=== PATIENT | female | born 1970 | race African-American/Black ===

== ENCOUNTER 2019-11-14 04:02 | Emergency (ER) | payer OTHER, SELFPAY ==
[2019-11-14 04:08] VITALS: BP 125/79; PULSE 70; RESP 20; TEMP 36.2; O2SAT 99
--- NOTE | 2019-11-14 04:24 | ECG_ITS ---
Measurements Intervals [place] Rate: 60 P: 33 AL: 183 QRS: 46 QRSD: 84 T: -14 QT: 418 QTc: 421 Interpretive Statements SINUS RHYTHM LOW QRS VOLTAGE IN PRECORDIAL LEADS DELAYED PRECORDIAL R/S TRANSITION BORDERLINE ST-T WAVE ABNORMALITY- DIFFUSE LEADS BASELINE ARTIFACT- I, II, III, AVR, AVL, AVF, V5-V6 BORDERLINE ECG Electronically Signed On 11-14-2019 7:17:58 CDT by Daniel Bro D.O.
--- NOTE | 2019-11-14 04:25 | ED.GENADULT ---
HPI - General Adult General Chief complaint: Unspecified Stated complaint: bodyaches Time Seen by Provider: 11/14/19 04:09 History of Present Illness HPI narrative: Patient presents to emergency department from home for muscle aches. Patient states for the past 1 months she has had achiness in her bilateral arms mainly located in the forearm as well as the bottom of her left foot. She says nothing seems to make the symptoms better or worse. She denies any achiness of the legs. She denies any fevers or chills chest pain shortness of breath abdominal pain numbness or tingling or weakness of the extremities. Patient denies any trauma or injury. She states she tried taking a Tylenol yesterday with minimal relief. Denies any other symptoms at this time Review of Systems Review of Systems: Narrative: Gen.: Denies fevers or chills Eyes: Denies eye pain or visual change ENT: Denies congestion Respiratory: Denies shortness of breath or cough CV: Denies chest pain or palpitations GI: Denies abdominal pain nausea, emesis or diarrhea denies burning, urgency, frequency or hematuria Musculoskeletal: See HPI Neuro: Denies numbness, tingling, weakness or focal weakness Skin: Denies rash Except as documented, all other systems reviewed and negative [facility] Past Medical History Medical History (Updated 11/14/19 @ 05:19 by Chay Marquez DO) Patient denies significant medical history Family History Family History (Updated 10/31/16 @ 09:08 by DOCTOR UNKNOWN) Father Diabetes mellitus Social History Social History Smoking status: Never smoker Alcohol intake: current Exam Narrative: Exam Narrative: APPEARANCE: No acute distress, nontoxic, resting in bed EYES: EOMI HEENT: Normocephalic, atraumatic, OMM Neck: Supple, no midline tenderness palpation, full range of motion without pain RESPIRATORY: No respiratory distress Clear to auscultation bilaterally with no rhonchi wheezing or rales. CARDIOVASCULAR: Regular rate and rhythm without murmurs rubs or gallops. Bilateral radial pulse 2+ ABDOMINAL: Soft, nontender, nondistended, no rebound or guarding MUSCULOSKELETAl: Moves all extremities. No clubbing, cyanosis or edema. No tenderness of the bilateral shoulder elbows or wrist with full range of motion of all, mild tenderness in bilateral forearms with no swelling ecchymosis or erythema NEURO: Awake and alert x 3. Following commands, speech normal, no focal deficits muscle strength 5 out of 5 bilateral upper and lower extremities SKIN:: Warm, dry. No rashes lesions or abrasions PSYCHIATRIC: Normal affect/mood, Course Course Emergency Course: Patient states pain is improved with Toradol Discussed with patient results of workup and diagnosis. Discussed need for follow-up with primary care, proper use of medication, and reasons to return to the emergency department. Patient understands and agrees to current treatment plan Vital Signs Vital signs: Vital Signs Temperature 97.2 F L 11/14/19 04:08 Pulse Rate 70 11/14/19 04:08 Respiratory Rate 20 11/14/19 04:08 Blood Pressure 125/79 11/14/19 04:08 Pulse Oximetry 99 11/14/19 04:08 Temperature 97.2 F L 11/14/19 04:08 Pulse Rate 70 11/14/19 04:08 Respiratory Rate 20 11/14/19 04:08 Blood Pressure 125/79 11/14/19 04:08 Pulse Oximetry 99 11/14/19 04:[address] [facility] Narrative Medical decision making narrative: Patient with bilateral arm aching for the past 1 month. On exam mildly tender in forearm region there is no overlying erythema or ecchymosis no joint tenderness full range of motion neurovascularly intact EKGs within normal limits no signs of rhabdomyolysis or electrolyte abnormality question the possibility of autoimmune versus other at this time feel the patient safe for discharge follow-up with PCP and will set patient up with PCP Vital Signs Vital Signs: Vital Signs Temperatu
[2019-11-14] MEDS: KETOROLAC 30 MG/ML VIAL (*BKC) IV PUSH (04:35)
[2019-11-14 04:48] LABS: Basophils Absolute Auto 0.1 K/mm3 (0.0-0.1); Basophils Percent Auto 0.8 % (0.2-1.2); Eosinophils Absolute Auto 0.2 K/mm3 (0-0.3); Eosinophils Percent Auto 3.2 % (0-4.4); Hematocrit 38.9 % (37.0-47.0); Hemoglobin 12.7 g/dL (12.0-15.0); Immature Granulocyte Absolute 0.02 K/mm3 (0.00-0.031); Immature Granulocyte Percent A 0.3 % (0-0.5); Lymphocytes Absolute Auto 2.54 K/mm3 (0.9-3.2); Lymphocytes Percent Auto 42.1 % (18.3-44.2); Mean Corpuscular HGB Conc 32.6 g/dl (32-36); Mean Corpuscular Hemoglobin 32.3 pg (26-34); Mean Platelet Volume 10.7 fl (7.4-10.4); Monocytes Absolute Auto 0.5 K/mm3 (0.1-0.6); Monocytes Percent Auto 8.8 % (2.6-8.5); Neutrophils Absolute Auto 2.7 K/mm3 (1.3-6.7); Neutrophils Percent Auto 44.8 % (45.5-73.1); Platelet Count Result 274 k/mm3 (150-375); Red Blood Count 3.93 M/mm3 (4.2-5.4); Red Cell Distribution Width 12.9 % (11.5-14.5)
[2019-11-14 05:05] VITALS: TEMP 36.6
[2019-11-14 05:05] LABS: Alanine Aminotransferase 26 U/L (4-35); Albumin Level 3.8 g/dL (3.5-5.1); Alkaline Phosphatase 53 U/L (38-126); Aspartate Amino Transferase 27 U/L (14-36); Bilirubin,Total 0.3 mg/dL (0.2-1.3); Blood Urea Nitrogen 13 mg/dL (7-17); Calcium 8.7 mg/dL (8.4-10.2); Carbon Dioxide 29 mmol/L (22-30); Chloride 103 mmol/L (98-107); Creatine Kinase 84 U/L (30-135); Estimated Glomerular Filt Rate > 60; Glucose 96 mg/dL (65-105); Magnesium 1.9 mg/dL (1.6-2.3); Potassium 4.3 mmol/L (3.4-5.0); Sodium 136 mmol/L (137-145)
[2019-11-14 05:13] LABS: Troponin I < 0.012 ng/mL (0.000-0.034)
[2019-11-14 05:35] VITALS: BP 121/75; PULSE 67; RESP 16; TEMP 36.6; O2SAT 99
== END 2019-11-14 05:40 | disposition home or self-care (01) ==
PROVIDERS: Emergency Provider Emergency Medicine
DX: M79.632 Pain in left forearm (principal); M79.631 Pain in right forearm; R94.31 Abnormal electrocardiogram [ECG] [EKG]
CPT/HCPCS: 36415; 80053; 82550; 83735; 84484; 85025; 93005; 96374; 99284; J1885

== ENCOUNTER 2020-06-27 19:50 | Emergency (ER) | payer OTHER, SELFPAY ==
--- NOTE | ~2020-06-27 | CT_ITS ---
EXAMINATION: CTA BRAIN/CAROTID DATE: 06/27/2020 22:21 INDICATION: Headache after pop in head TECHNIQUE: Computed tomographic angiography (CTA) of the head and neck was performed with 100 mL Omni paque-350 intravenous contrast. Multiplanar reconstructions and maximum intensity projection 3D-recon structions of the carotid arteries and of the intracranial arteries were created by the technologist on a separate workstation. Precontrast CT of the head was also obtained. Automated exposure control and iterative reconstruction technique were employed.The dose-length product was 1825.14 mGy-cm. COMPARISON: None. FINDINGS: Carotid arteries: There is 0% stenosis of the right carotid bulb relative to normal distal artery lumen diameter (NASCE T criteria). There is 0% stenosis of the left carotid bulb relative to normal distal artery lumen adán meter. Cervical soft tissues are unremarkable. Mild cervical spondylosis. Visualized upper lungs are clear. Head: No acute intracranial hemorrhage, acute infarction or abnormal extra axial fluid collection. Ventricl es are normal and symmetric. No mass/mass effect. The orbits, paranasal sinuses and mastoid air cells are normal. No abnormally enhancing brain lesions. Intracranial arteries There is no hemodynamically significant stenosis in the vertebral, basilar and internal carotid arter ies. Vertebral arteries are codominant. There are no aneurysms identified. Both A1 and P1 segments a re patent. Cerebral arterial arborization appears symmetric. IMPRESSION: 1. 0% stenosis of the left and right carotid bulbs relative to normal distal artery lumen diameter (N ASCET criteria). 2. Normal brain. No acute intracranial process. 3. Normal cerebral angiogram. Reviewed, dictated and finalized at [facility]. NCIAL SERVICES AGENT IMPRESSION: 1. 0% stenosis of the left and right carotid bulbs relative to normal distal ar sully lumen diameter (NASCET criteria). 2. Normal brain. No acute intracranial process. 3. Normal cerebral angiogram.
[2020-06-27 20:18] VITALS: BP 115/73; PULSE 64; RESP 18; TEMP 36.8; O2SAT 100
--- NOTE | 2020-06-27 20:58 | ED.HA ---
HPI - Headache General Chief Complaint: Headache Stated Complaint: feels like she need a ct scan due to a pop Time Seen by Provider: 06/27/20 20:25 Source: patient Mode of arrival: ambulatory Limitations: no limitations History of Present Illness HPI Narrative: This patient is a 50 year old female who presents for evaluation a frontal headache. She reports 3 hours ago she felt a pop in her head. She states she has gradually developed a frontal headache. She states she feels like her sinuses have opened . She denies blurred vision, nausea, vomiting, focal weakness. She has not taken anything for pain . She rates her pain 6/10. MD elicited complaint: headache Related Data Allergies Allergy/AdvReac Type Severity Reaction Status Date / Time Sulfa (Sulfonamide Allergy Verified 03/06/20 12:45 Antibiotics) Review of Systems Review of Systems: All systems reviewed & are unremarkable except as noted in HPI and below Constitutional: Constitutional: Denies chills and Denies fever(s) ENT: Reports nasal congestion and Denies sore throat Cardiovascular: Cardiovascular: Denies chest pain Respiratory: Respiratory: Denies cough and Denies dyspnea Gastrointestinal: Gastrointestinal: Denies abdominal pain, Denies diarrhea, Denies nausea and Denies vomiting Neurologic: Denies dizziness, Reports headache(s), Denies focal weakness and Denies weakness PMFSH Past Medical History Medical History Patient denies significant medical history Family History Family History (System 03/06/20 @ 12:45 by Bronwyn Patel) Father Diabetes mellitus Social History Social History (System 03/06/20 @ 12:45 by Bronwyn Patel) Smoking status: Never smoker Alcohol intake: current Exam Const: General: no acute distress and alert Orientation/consciousness: patient oriented x3 HENMT: Head: normocephalic and atraumatic Face and sinus: face symmetric Mouth: Yes Normal oral and palatal mucosa present, Yes lip normal, Yes oropharynx normal and Yes moist mucous membranes Throat: posterior oropharynx normal, tonsils normal and uvula midline Eyes: EOM: EOMs intact bilaterally Neck: Neck: normal visual inspection Resp: Effort & Inspection: normal respiratory effort, no retractions and no use of accessory muscles Auscultation: clear to auscultation bilaterally Cardio: Rate: regular rate Rhythm: regular rhythm Heart sounds: no murmurs GI: GI Palp: Yes Soft to palpation, No Tenderness to palpation present (GI), No Guarding due to palpation present (GI) and No Rigid due to palpation Auscultation: normal bowel sounds Skin: General skin exam: normal color Rashes: no rashes Neuro: General: patient oriented x3, moves all extremities, no meningeal signs and CN's II-XI intact bilaterally Cranial nerves: Yes Nystagmus not present Extrem: General: normal to inspection Psych: Mental Status: mental status grossly normal Affect: normal affect Course Reevaluation(s) Reevaluation #1: I Discussed with patient CTa brain and neck are unremarkable. She reports her headache is better. Date: 06/27/20 Time: 23:00 Vital Signs Vital signs: Vital Signs Temperature 98.3 F 06/27/20 20:18 Pulse Rate 64 06/27/20 20:18 Respiratory Rate 18 06/27/20 20:18 Blood Pressure 115/73 06/27/20 20:18 Pulse Oximetry 100 06/27/20 20:18 Temperature 97.8 F 06/27/20 23:19 Pulse Rate 86 06/27/20 23:19 Respiratory Rate 16 06/27/20 23:19 Blood Pressure 141/86 H 06/27/20 23:19 Pulse Oximetry 99 06/27/20 23:19 MDM - Headache Lab Data Attestation: I reviewed the patient's lab results. Result diagrams: 06/27/20 20:52 06/27/20 20:52 Labs: Lab Results 06/27/20 06/27/20 06/27/20 Range/Units 20:52 20:52 20:52 WBC 7.8 (4.5-10.0) K/mm3 RBC 4.09 L (4.2-5.4) M/mm3 Hgb 13.4 (12.0-15.0) g/dL Hct 4
[2020-06-27 20:59] LABS: Basophils Percent Auto 0.5 % (0.2-1.2); Eosinophils Absolute Auto 0.2 K/mm3 (0-0.3); Eosinophils Percent Auto 2.4 % (0-4.4); Hemoglobin 13.4 g/dL (12.0-15.0); Immature Granulocyte Absolute 0.02 K/mm3 (0.00-0.031); Immature Granulocyte Percent A 0.3 % (0-0.5); Lymphocytes Absolute Auto 2.87 K/mm3 (0.9-3.2); Lymphocytes Percent Auto 36.8 % (18.3-44.2); Mean Corpuscular HGB Conc 33.5 g/dl (32-36); Mean Corpuscular Hemoglobin 32.8 pg (26-34); Mean Corpuscular Volume 97.8 fl (80-100); Mean Platelet Volume 10.4 fl (7.4-10.4); Monocytes Absolute Auto 0.6 K/mm3 (0.1-0.6); Monocytes Percent Auto 7.1 % (2.6-8.5); Neutrophils Absolute Auto 4.1 K/mm3 (1.3-6.7); Neutrophils Percent Auto 52.9 % (45.5-73.1); Platelet Count Result 255 k/mm3 (150-375); Red Blood Count 4.09 M/mm3 (4.2-5.4); Red Cell Distribution Width 13.5 % (11.5-14.5); White Blood Count 7.8 K/mm3 (4.5-10.0)
[2020-06-27 21:08] LABS: INR 0.9; Prothrombin Time 12.9 Seconds (11.1-14.7)
[2020-06-27 21:09] LABS: Partial Thromboplastin Time 29.2 SECONDS (22.3-36.8)
[2020-06-27 21:12] LABS: Alanine Aminotransferase 26 U/L (4-35); Albumin Level 4.3 g/dL (3.5-5.1); Alkaline Phosphatase 60 U/L (38-126); Anion Gap 7 mmol/L (8-16); Aspartate Amino Transferase 33 U/L (14-36); Bilirubin,Total 0.4 mg/dL (0.2-1.3); Blood Urea Nitrogen 16 mg/dL (7-17); Calcium 9.3 mg/dL (8.4-10.2); Carbon Dioxide 30 mmol/L (22-30); Chloride 102 mmol/L (98-107); Estimated CRCL calculation 65 ml/min; Estimated Glomerular Filt Rate > 60; Glucose 79 mg/dL (65-105); Potassium 3.8 mmol/L (3.4-5.0); Sodium 139 mmol/L (137-145)
[2020-06-27 23:19] VITALS: BP 141/86; PULSE 86; RESP 16; TEMP 36.6; O2SAT 99
== END 2020-06-27 23:20 | disposition home or self-care (01) ==
PROVIDERS: Emergency Provider General Practice
DX: G44.209 Tension-type headache, unspecified, not intractable (principal)
CPT/HCPCS: 36415; 70496; 70498; 80053; 81025; 85025; 85610; 85730; 96365; 99284; J0131; Q9967

== ENCOUNTER 2021-09-27 15:15 | Emergency (ER) | payer OTHER, SELFPAY ==
--- NOTE | ~2021-09-27 | CT_ITS ---
EXAMINATION: CT abdomen pelvis w con INDICATION: Diffuse abdominal pain TECHNIQUE: Computed tomographic images of the abdomen and pelvis were obtained after the administrati on of 100 cc of Omnipaque 350 intravenous contrast. The dose-length product (DLP) was 584.47 mGy-cm. Automated exposure control and iterative reconstruction technique were employed. COMPARISON: None available FINDINGS: Minimal dependent atelectasis is present in the lung bases. The heart size is normal. Cysts of the liver measure up to 7 mm in the left hepatic lobe. The spleen, pancreas, gallbladder, and adr enal glands are normal. The kidneys are unremarkable. No pathologically enlarged abdominal or pelvic lymph nodes are identified. There is no free intraperitoneal gas or evidence of bowel obstruction. Th ere is wall thickening of the sigmoid colon with edematous stranding of the perisigmoid fat. Tiny foc i of gas in the region appear to be within diverticula. No perisigmoid abscess is identified. There i s an umbilical hernia containing a short segment of nonobstructed small bowel. The appendix is normal . There is a large volume of colonic stool. IMPRESSION: 1. Acute, uncomplicated sigmoid diverticulitis. 2. Constipation. Reviewed, dictated and finalized at location [facility]. SORSHIP MANAGER
[2021-09-27 15:17] VITALS: BP 131/73; PULSE 93; RESP 15; TEMP 36.8; O2SAT 100
[2021-09-27 16:08] VITALS: BP 123/76; PULSE 88; RESP 14; O2SAT 98
--- NOTE | 2021-09-27 16:26 | ED.ABDPAIN ---
HPI - Abdominal Pain General Chief Complaint: Abdominal Pain Stated Complaint: abd pain Time Seen by Provider: 09/27/21 16:03 Source: patient Mode of arrival: ambulatory Limitations: no limitations History of Present Illness HPI narrative: This is a 51 year old female who presents for diffuse abdominal pain. She developed pain yesterday and she describes her pain as contractions . It has been constant, and she reports it is worse with driving. She denies associated nausea, vomiting, fever, chills, diarrhea, dysuria or vaginal discharge. She took midol for her pain with out relief. Related Data Allergies Allergy/AdvReac Type Severity Reaction Status Date / Time Sulfa (Sulfonamide Allergy Unknown Verified 09/27/21 16:08 Antibiotics) Review of Systems Review of Systems: All systems reviewed & are unremarkable except as noted in HPI and below PMFSH Past Medical History Medical History History of History of miscarriage History of vaginal delivery Surgical History Surgical History History of hernia surgery Family History Family History Father Diabetes mellitus Mother Hypertension Depression Thyroid disorder Social History Social History Smoking status: Never smoker Alcohol intake: current Exam Const: General: no acute distress and alert Orientation/consciousness: patient oriented x3 Eyes: EOM: EOMs intact bilaterally Resp: Effort & Inspection: normal respiratory effort and no retractions Auscultation: clear to auscultation bilaterally Cardio: Rate: regular rate Rhythm: regular rhythm Heart sounds: no murmurs GI: GI Palp: Yes Soft to palpation, Yes Tenderness to palpation present (GI) (Diffuse), No Guarding due to palpation present (GI) and No Rigid due to palpation Auscultation: normal bowel sounds Skin: General skin exam: normal color Rashes: no rashes Neuro: General: patient oriented x3, moves all extremities and CN's II-XI intact bilaterally Psych: Mental Status: mental status grossly normal Affect: normal affect Course Reevaluation(s) Reevaluation #1: I Discussed with patient diagnosis of diverticulits. I reviewed discharge plan and treatment. Date: 09/27/21 Time: 18:54 Vital Signs Vital signs: Vital Signs Temperature 98.2 F 09/27/21 15:17 Pulse Rate 93 09/27/21 15:17 Respiratory Rate 15 09/27/21 15:17 Blood Pressure 131/73 09/27/21 15:17 Pulse Oximetry 100 09/27/21 15:17 Temperature 98.2 F 09/27/21 15:17 Pulse Rate 88 09/27/21 16:08 Respiratory Rate 14 09/27/21 16:08 Blood Pressure 123/76 09/27/21 16:08 Pulse Oximetry 98 09/27/21 16:08 MDM - Abdominal Pain Lab Data Result diagrams: 09/27/21 17:00 09/27/21 17:00 Labs: Lab Results 09/27/21 09/27/21 09/27/21 Range/Units 17:00 17:00 17:00 WBC 12.2 H (4.5-10.0) K/mm3 RBC 3.90 L (4.2-5.4) M/mm3 Hgb 12.8 (12.0-15.0) g/dL Hct 38.9 (37.0-47.0) % MCV 99.7 (80-100) fl MCH 32.8 (26-34) pg MCHC 32.9 (32-36) g/dl RDW 13.0 (11.5-14.5) % Plt Count 255 (150-375) k/mm3 MPV 10.6 H (7.4-10.4) fl Immature Gran % (Auto) 0.5 (0-0.5) % Neut % (Auto) 71.4 (45.5-73.1) % Lymph % (Auto) 20.0 (18.3-44.2) % [place] % (Auto) 7.3 (2.6-8.5) % Eos % (Auto) 0.6 (0-4.4) % Baso % (Auto) 0.2 (0.2-1.2) % Lymph # (Auto) 2.43 (0.9-3.2) K/mm3 [place] # (Auto) 0.9 H (0.1-0.6) K/mm3 Eos # (Auto) 0.1 (0-0.3) K/mm3 Baso # (Auto) 0.0 (0.0-0.1) K/mm3 Abs Immat Gran (auto) 0.06 H (0.00-0.031) K/mm3 Absolute Neuts (auto) 8.7 H (1.3-6.7) K/mm3 Absolute Nucleated RBC 0.0 (0.0-0.012) K/mm3 Nucleated RBC % 0.0 (0.0-0.2) % Sodium 1
[2021-09-27] MEDS: KETOROLAC 30 MG/ML VIAL (*BKC) IV PUSH (16:57)
[2021-09-27] MEDS: SODIUM CHLORIDE 0.9% IV 1,000 ML 999 ML IV CONT (16:59)
[2021-09-27 17:07] LABS: Basophils Percent Auto 0.2 % (0.2-1.2); Eosinophils Absolute Auto 0.1 K/mm3 (0-0.3); Eosinophils Percent Auto 0.6 % (0-4.4); Hematocrit 38.9 % (37.0-47.0); Hemoglobin 12.8 g/dL (12.0-15.0); Immature Granulocyte Absolute 0.06 K/mm3 (0.00-0.031); Immature Granulocyte Percent A 0.5 % (0-0.5); Lymphocytes Absolute Auto 2.43 K/mm3 (0.9-3.2); Mean Corpuscular HGB Conc 32.9 g/dl (32-36); Mean Corpuscular Hemoglobin 32.8 pg (26-34); Mean Corpuscular Volume 99.7 fl (80-100); Mean Platelet Volume 10.6 fl (7.4-10.4); Monocytes Absolute Auto 0.9 K/mm3 (0.1-0.6); Monocytes Percent Auto 7.3 % (2.6-8.5); Neutrophils Absolute Auto 8.7 K/mm3 (1.3-6.7); Neutrophils Percent Auto 71.4 % (45.5-73.1); Platelet Count Result 255 k/mm3 (150-375); White Blood Count 12.2 K/mm3 (4.5-10.0)
[2021-09-27 17:29] LABS: Add Urine Microscopic? YES; Appearance Urine Clear (Clear); Bilirubin Urine Negative (Negative); Blood Urine Negative (Negative); Color Urine Yellow (Yellow); Glucose Urine UA Negative (Negative); Ketones Urine Negative (Negative); Leukocyte Esterase Ur Negative LEU/UL (Negative); Mucus Urine Rare /lpf; Nitrate Urine Negative (Negative); Protein Urine Negative (Negative); RBC Urine 0-2 /hpf (0-2); Specific Grav Ur 1.021 (1.001-1.035); Squamous Epithelial Cell Urine Occasional /hpf (Few); WBC Urine 0-3 /hpf
[2021-09-27 17:30] LABS: Alanine Aminotransferase 16 U/L (4-35); Albumin Level 4.1 g/dL (3.5-5.1); Alkaline Phosphatase 77 U/L (38-126); Anion Gap 7 mmol/L (8-16); Aspartate Amino Transferase 22 U/L (14-36); Bilirubin,Total 1.1 mg/dL (0.2-1.3); Blood Urea Nitrogen 9 mg/dL (7-17); Calcium 8.9 mg/dL (8.4-10.2); Carbon Dioxide 26 mmol/L (22-30); Chloride 104 mmol/L (98-107); Estimated CRCL calculation 82 ml/min; Estimated Glomerular Filt Rate > 60; Glucose 88 mg/dL (65-110); Lipase 31 U/L (23-300); Potassium 4.5 mmol/L (3.4-5.0); Sodium 137 mmol/L (137-145)
[2021-09-27 19:18] VITALS: PULSE 85; RESP 14; O2SAT 98
== END 2021-09-27 19:20 | disposition home or self-care (01) ==
PROVIDERS: Emergency Provider General Practice
DX: K57.32 Diverticulitis of large intestine without perforation or abscess without bleeding (principal); K59.00 Constipation, unspecified
CPT/HCPCS: 36415; 74177; 80053; 81001; 81025; 83690; 85025; 96361; 96374; 96375; 99284; J0696; J1885; J7030; Q9967

== ENCOUNTER 2023-05-07 07:42 | Emergency (ER) | payer OTHER, SELFPAY ==
--- NOTE | ~2023-05-07 | CT_ITS ---
. EXAMINATION: CT abdomen pelvis w con DATE: 05/07/2023 08:55 INDICATION: Periumbilical abdominal pain for 3 weeks TECHNIQUE: Computed tomography (CT) of the abdomen and pelvis was performed with 100 CC Omnipaque 350 intravenous contrast. Automated exposure control and iterative reconstruction technique were employe d. Exam dose: 705.91 mGy-cm total exam DLP. COMPARISON: September 27, 2021 CT abdomen pelvis FINDINGS: Minimal bilateral lower lobe predominantly dependent atelectasis. The lung bases are clear of consolidation. Borderline heart size. No pericardial or pleural effusion. There are 2 small left hepatic cysts. The liver, gallbladder, bile ducts, pancreas, pancreatic duct, spleen and adrenal glands are otherwise unremarkable. No renal mass lesion or urinary tract calculus or hydroureteronephrosis is detected. The urinary blad shubham, uterus and adnexal areas are unremarkable. Normal caliber of the abdominal aorta without atherosclerotic calcification. No intraperitoneal or re troperitoneal or pelvic mass lesion or adenopathy or ascites is detected. Normal appendix. No bowel obstruction, bowel wall thickening, pneumatosis or intraperitoneal free air . [place] umbilical hernia containing nonobstructed small bowel. No suspicious osteolytic or osteoblastic lesions. IMPRESSION: Wide mouth umbilical hernia containing nonobstructed nonstrangulated small bowel Normal appendix Small left hepatic cysts Reviewed, dictated and finalized at [facility]. Reviewed, dictated and finalized at [facility]. IMPRESSION: Wide mouth umbilical hernia containing nonobstructed nonstrangulat ed small bowel Normal appendix Small left hepatic cysts
[2023-05-07 07:49] VITALS: BP 106/63; PULSE 77; RESP 18; TEMP 36.6; O2SAT 99
[2023-05-07 08:22] LABS: Basophils Absolute Auto 0.1 K/mm3 (0.0-0.1); Basophils Percent Auto 0.9 % (0.2-1.2); Eosinophils Absolute Auto 0.2 K/mm3 (0-0.3); Eosinophils Percent Auto 3.4 % (0-4.4); Hematocrit 42.6 % (37.0-47.0); Hemoglobin 13.9 g/dL (12.0-15.0); Immature Granulocyte Absolute 0.01 K/mm3 (0.00-0.031); Immature Granulocyte Percent A 0.2 % (0-0.5); Lymphocytes Percent Auto 37.5 % (18.3-44.2); Mean Corpuscular HGB Conc 32.6 g/dl (32-36); Mean Corpuscular Hemoglobin 32.2 pg (26-34); Mean Corpuscular Volume 98.6 fl (80-100); Mean Platelet Volume 10.2 fl (7.4-10.4); Monocytes Absolute Auto 0.4 K/mm3 (0.1-0.6); Monocytes Percent Auto 6.8 % (2.6-8.5); Neutrophils Absolute Auto 2.9 K/mm3 (1.3-6.7); Neutrophils Percent Auto 51.2 % (45.5-73.1); Platelet Count Result 291 k/mm3 (150-375); Red Blood Count 4.32 M/mm3 (4.2-5.4); Red Cell Distribution Width 12.6 % (11.5-14.5); White Blood Count 5.6 K/mm3 (4.5-10.0)
[2023-05-07 08:33] LABS: Appearance Urine Clear (Clear); Bilirubin Urine Negative (Negative); Blood Urine Negative (Negative); Color Urine Yellow (Yellow); Glucose Urine UA Negative (Negative); Ketones Urine Negative (Negative); Leukocyte Esterase Ur Trace LEU/UL (Negative); Nitrate Urine Negative (Negative); Protein Urine Negative (Negative); Urobilinogen Urine 0.2 mg/dL (<2.0)
[2023-05-07 08:35] LABS: Alanine Aminotransferase 31 U/L (6-35); Albumin Level 4.3 g/dL (3.5-5.1); Alkaline Phosphatase 73 U/L (38-126); Anion Gap 5 mmol/L (8-16); Aspartate Amino Transferase 31 U/L (14-36); Bilirubin,Total 0.5 mg/dL (0.2-1.3); Blood Urea Nitrogen 13 mg/dL (7-17); Calcium 8.9 mg/dL (8.4-10.2); Carbon Dioxide 28 mmol/L (22-30); Chloride 104 mmol/L (98-107); Estimated CRCL calculation 81 ml/min; Estimated Glomerular Filt Rate > 60; Glucose 93 mg/dL (65-110); Lipase 54 U/L (23-300); Potassium 3.9 mmol/L (3.4-5.0); Sodium 137 mmol/L (137-145)
[2023-05-07] MEDS: BELLADONNA ALK/PHENOB ELIX 10 ML, MAG HYDROX/ALUMINUM HYD/SIMETH 30 ML, LIDOCAINE HCL 2... PO (08:39)
[2023-05-07 08:43] LABS: Bacteria Urine None Seen /hpf; Non Pathogenic Casts 0-2; Squamous Epithelial Cell Urine None seen /hpf (Few); WBC Urine 0-5 /hpf
[2023-05-07 08:58] LABS: Add Urine Microscopic? YES
--- NOTE | 2023-05-07 11:06 | ED.ABDPAIN ---
HPI - Abdominal Pain General Chief Complaint: Abdominal Pain Stated Complaint: abdominal pain Time Seen by Provider: 05/07/23 08:04 History of Present Illness HPI narrative: This is a 53-year-old female, who presents emergency department complaining of 3/10 sharp epigastric pain for the past 3 weeks that has been gradually worsening. The pain does not radiate and has no obvious aggravating or alleviating factors. She has no other acute complaints. Related Data Home Medications Medication Instructions Recorded Confirmed polyethylene glycol 3350 17 gram 17 g PO DAILY PRN 01/27/23 01/27/23 oral powder packet (Miralax) Allergies Allergy/AdvReac Type Severity Reaction Status Date / Time Sulfa (Sulfonamide Allergy Unknown Verified 05/07/23 08:04 Antibiotics) Review of Systems Review of Systems: CONSTITUTIONAL: Denies fever, chills, or sweats. CARDIOVASCULAR: Denies chest pain, palpitations, or edema. RESPIRATORY: Denies cough or dyspnea. GASTROINTESTINAL: Epigastric abdominal pain denies nausea, vomiting, or diarrhea. GENITOURINARY: Denies dysuria or hematuria. SKIN: Denies rash or itching. MUSCULOSKELETAL: Denies back pain, joint pain, or myalgia. NEUROLOGIC: Denies headache, numbness, dizziness, or weakness. PSYCHIATRIC: Denies anxiety or depression. [facility] Past Medical History Medical History History of History of miscarriage History of vaginal delivery Surgical History Surgical History History of hernia surgery Family History Family History Father Diabetes mellitus Mother Hypertension Depression Thyroid disorder Social History Social History Smoking status: Never smoker Alcohol intake: current Alcohol use details: RARELY Substance use: never Substance use type: does not use Lack of Transportation: No Lack of Food: Never True Current Housing: I Have Housing Difficulty Paying Gas/Electric Bills: No Currently Unemployed: No Education: Bachelor's Degree Difficulty w/ Childcare or Family Care: No Living arrangements: with family Occupation/Education: occupation Gender identity (if verbalized by the patient): Female Sexual Orientation (if Verbalized by the Patient): Straight or Heterosexual Spiritual care concerns: No Exam Narrative: GENERAL: Well-developed, well-nourished, and in no acute distress. HEAD: Normocephalic, atraumatic. EYES: PERRLA and EOMI. CHEST: Clear to auscultation. No respiratory distress. No wheezes rales or rhonchi HEART: Regular rate and rhythm. No murmur heard. Normal peripheral pulses. ABDOMEN: Soft, mild epigastric abdominal tenderness without rebound or guarding, nondistended, normal active bowel sounds. No CVA tenderness to palpation EXTREMITIES: Normal range of motion. No edema. SKIN: Warm, dry, no rash. NEURO: Alert and oriented x3. Moving all 4 limbs purposefully. PSYCH: Normal mood and affect. Course Course Emergency Course: 11:00 - CT of the abdomen not concerning for acute intra-abdominal process though does demonstrate an umbilical hernia (of which the patient is aware). CBC and chemistries unremarkable. UA not concerning for infection. I suspect the patient's pain is related to gastritis. Will discharge with antacid medications and recommendation for primary care follow up. Discussed return and emergency precautions including signs/symptoms of acute abdomen and intractable vomiting. The patient voiced understanding and is comfortable with the plan. All questions answered to her satisfaction. Vital Signs Vital signs: Vital Signs Temperature 97.8 F 05/07/23 07:49 Pulse Rate 77 05/07/23 07:49 Respiratory Rate 18 05/07/23 07:49 Blood Pressure 106/63 05/07/23 07:49
== END 2023-05-07 11:19 | disposition home or self-care (01) ==
PROVIDERS: Emergency Provider Preventive Medicine Aerospace Medicine
DX: K29.70 Gastritis, unspecified, without bleeding (principal); K42.9 Umbilical hernia without obstruction or gangrene; K76.89 Other specified diseases of liver
CPT/HCPCS: 36415; 74177; 80053; 81001; 81025; 83690; 85025; 99284; A9270; Q9967

== ENCOUNTER 2023-06-12 07:22 | Outpatient (CLI) | payer OTHER, SELFPAY ==
--- NOTE | ~2023-06-12 | MM_ITS ---
EXAMINATION: MM screening rory BI w adriana HISTORY: Screening TECHNIQUE: Craniocaudal and mediolateral oblique 3-D tomosynthesis images were obtained and synthetic 2-D images were generated. CAD analysis was submitted and interpreted. COMPARISON: 01/13/2015 BREAST PARENCHYMAL COMPOSITION: The breasts are heterogeneously dense, which may obscure small masses . FINDINGS: There is no evidence of suspicious mass, calcification, or architectural distortion to sugg est malignancy in either breast. There has been no suspicious interval change. IMPRESSION: 1. No mammographic evidence of malignancy. 2. Recommend routine screening mammography in one year. BI-RADS Category 1: Negative Reviewed, dictated and finalized at [facility]. NESS SUPPORT MANAGER
== END 2023-06-12 07:23 | disposition home or self-care (01) ==
LOC: CHSIMG 07:23
PROVIDERS: PCP Internal Medicine; Visit Provider Obstetrics & Gynecology
DX: Z12.31 Encounter for screening mammogram for malignant neoplasm of breast (principal)
CPT/HCPCS: 77063; 77067

== ENCOUNTER → 2023-06-12 10:17 | Outpatient (CLI) | payer OTHER, SELFPAY ==
--- NOTE | ~2023-06-12 | US_ITS ---
Pelvic ultrasound. Clinical History: Enlarged uterus on exam Technique: Realtime transabdominal and transvaginal scanning of the pelvis was performed. Color flow Doppler and Doppler spectral analysis were performed. Findings: The uterus is anteverted, and measures 9.1 x 7.1 x 7.2 cm. The endometrial stripe has a th ickness of 5 mm. Possible ill-defined fibroid measuring 2.9 cm posteriorly. Possible additional ill-d efined 2.6 cm fibroid anteriorly.. The right ovary measures 2.0 x 1.3 x 1.4 cm. No significant right ovarian or adnexal mass is seen. The left ovary is not visualized. No significant left ovarian or adnexal mass is seen. There is no evidence of free fluid in the cul de sac. Impression: Suspected ill-defined uterine fibroids, as above. Reviewed, dictated and finalized at [facility]. DIATION CONSULTANT Impression: Suspected ill-defined uterine fibroids, as above.
== END ==
PROVIDERS: PCP Obstetrics & Gynecology; Visit Provider Obstetrics & Gynecology
DX: N85.2 Hypertrophy of uterus (principal); D25.9 Leiomyoma of uterus, unspecified
CPT/HCPCS: 76830; 76856

== ENCOUNTER 2024-08-01 09:19 | Emergency (ER) | payer OTHER, SELFPAY ==
--- NOTE | ~2024-08-01 | XR_ITS ---
EXAMINATION: XR chest 2V DATE: 08/01/2024 11:50 INDICATION: Cough and congestion TECHNIQUE: PA and lateral views of the chest were obtained. COMPARISON: None FINDINGS: The lungs are clear with no focal airspace opacities, pulmonary edema, pleural effusion or pneumothor ax. The cardiomediastinal silhouette is normal. Mild lower thoracic dextrocurvature. IMPRESSION: 1. No acute cardiopulmonary disease. Reviewed, dictated and finalized at location B. [employer]
[2024-08-01 09:39] VITALS: BP 131/84; PULSE 68; RESP 18; TEMP 36.9; O2SAT 97
--- NOTE | 2024-08-01 11:36 | ED.URI ---
HPI - URI/Sore Throat General Chief Complaint: Upper Respiratory Infection Stated Complaint: congested Time Seen by Provider: 08/01/24 11:11 Source: patient Mode of arrival: ambulatory Limitations: no limitations History of Present Illness HPI Narrative: Patient is a 54-year-old female who presents the ED with report of upper respiratory infection. Patient reports for the last three weeks, she has had persistent productive cough, chest and nasal congestion, sore throat, hoarse voice. Has been taking anur-iqm-tkojwtn cough medicines without improvement. Was seen at urgent care last week and prescribed amoxicillin and a course of prednisone, but denies improvement. Is concerned she may be developing pneumonia. States symptoms seem to be worsening. Denies shortness breath, chest pain, fevers. Related Data Home Medications ?Medication ?Instructions ?Recorded ?Confirmed ?Last Taken ?Type polyethylene glycol 3350 17 gram 17 g PO DAILY PRN 01/27/23 06/23/24 Unknown History oral powder packet (Miralax) Allergies Allergy/AdvReac Type Severity Reaction Status Date / Time Sulfa (Sulfonamide Allergy Unknown Verified 08/01/24 11:36 Antibiotics) Review of Systems Review of Systems: All systems reviewed & are unremarkable except as noted in HPI. All systems reviewed & are unremarkable except as noted in HPI and below PMFSH Past Medical History Medical History Hernia, umbilical History of History of miscarriage History of vaginal delivery Surgical History Surgical History History of hernia surgery Family History Family History Father Diabetes mellitus Mother Hypertension Depression Thyroid disorder Social History Social History Smoking status: Never smoker Alcohol intake: current Alcohol use details: RARELY Substance use: never Substance use type: does not use Lack of Transportation: No Lack of Food: Never True Current Housing: I Have Housing Difficulty Paying Gas/Electric Bills: No Currently Unemployed: No Education: Bachelor's Degree Difficulty w/ Childcare or Family Care: No Living arrangements: with family Occupation/Education: occupation Gender identity (if verbalized by the patient): Female Sexual Orientation (if Verbalized by the Patient): Straight or Heterosexual Spiritual care concerns: No Exam Narrative: GENERAL: Well appearing, obese with BMI of 33.4, non-toxic, in no acute distress. HEAD: Normocephalic, atraumatic. RESPIRATORY: Airway patent, respirations nonlabored. Clear to auscultation bilaterally, no rales, rhonchi, wheezing. Hoarse quality to voice. No significant focal lung sounds heard. CARDIOVASCULAR: Regular rate and rhythm without murmurs, rubs, or gallops. MUSCULOSKELETAL: Moves all extremities. No gross deformities. SKIN: Warm, dry, normal color. NEURO: A&O X3. Speech clear. PSYCHIATRIC: Appropriate mood and affect. Normal interaction. Course Vital Signs Vital signs: Vital Signs Temperature 98.4 F 08/01/24 09:39 Pulse Rate 68 08/01/24 09:39 Respiratory Rate 18 08/01/24 09:39 Blood Pressure 131/84 08/01/24 09:39 Pulse Oximetry 97 08/01/24 09:39 Temperature 98.4 F 08/01/24 09:39 Pulse Rate 68 08/01/24 09:39 Respiratory Rate 18 08/01/24 09:39 Blood Pressure 131/84 08/01/24 09:39 Pulse Oximetry 97 08/01/24 09:39 Oxygen Delivery Room Air 08/01/24 11:32 MDM - URI/Sore Throat MDM Narrative Medical decision making narrative: Patient presented to ED with 3 week history of cough and cold symptoms. Vital signs are stable upon arrival. Patient is in no acute distress. Viral swabs negative. Chest x-ray is clear. Given prolonged symptoms, secondary worsening, recent abx use, will place patient on Augmentin and azithromycin for likely bacterial component. Will also prescribe Tessalon Perles for cough. Advised to continue axmm-wwa-vphtyqa cough and cold medicines. Advised close follow-up with PCP for further evaluation. Given return precautions. She agrees with plan. Discharged in stable condition. Medical Records Attestation: I reviewed the patient's medical records. Lab Data Attestation: I reviewed the patient's lab results. Labs: Lab Results 08/01/24 Range/Units 11:30 Influenza A (RT-PCR) Negative (Negative) Influenza B (RT-PCR) Negative (Negative) RSV (RT-PCR) Negative (Negative) SARS-CoV-2 RNA (RT-PCR) Negative (Negative) Imaging Data Attestation: I personally reviewed and interpreted this imaging study as follows: Radiologist's impression: ITS Impressions Chest X-Ray 08/01/24 11:50 IMPRESSION: 1. No acute cardiopulmonary disease. Discharge Plan Discharge Clinical Impression: Upper respiratory infection Qualifiers: URI type: unspecified URI Qualified Code(s): J06.9 - Acute upper respiratory infection, unspecified Patient Disposition: Home, Self-Care Condition: Stable Instructions: Antibiotic Form, Upper Respiratory Infection (ED), Viral Syndrome (ED), Cold Symptoms (ED) Additional Instructions: Your testing for covid, influenza, RSV were negative. Take both antibiotics as prescribed. Stay well-hydrated at home. Recommend electrolyte rich fluids, Gatorade, Pedialyte, body armor. Utilize Tessalon Perles as needed for cough. Continue Tylenol and Ibuprofen for discomfort and/or fevers. Recommend edoi-jrv-vpuvaqa cough and cold medicines for symptom relief, Delsym, Mucinex, DayQuil, NyQuil, Sudafed, Robitussin, TheraFlu. Follow with primary care doctor for further evaluation. Return to the ED if you experience chest pain, difficulty breathing, coughing blood, persistent fevers, unable to keep down food or drink, severe pain, or any other symptoms of concern. Patient Language: Maldivian Prescriptions: New azithromycin [Zithromax Z-Jan] 250 mg tablet See Rx Instructions .ROUTE .COMPLEX Qty: 6 0RF Rx Instructions: For 250 mg dose pack: take 500 mg today (day 1), then 250 mg for 4 days (days 2-5) amoxicillin-pot clavulanate 875-125 mg tablet 1 tablet PO Q12H 7 Days Qty: 14 0RF benzonatate 200 mg capsule 200 mg PO TID PRN (Reason: cough) Qty: 15 0RF No Action polyethylene glycol 3350 [Miralax] 17 gram powder in packet 17 g PO DAILY PRN valacyclovir [Valtrex] 500 mg tablet 500 mg PO DAILY Qty: 90 3RF Rx Instructions: Take one by mouth every 12 hours for three days for symptoms Follow-up/Referrals: Олег Loza MD [Primary Care Provider] - Time of Disposition: 12:31
[2024-08-01 12:20] LABS: Influenza A QL RT-PCR Negative (Negative); Influenza B QL RT-PCR Negative (Negative); RSV RNA, RT-PCR Negative (Negative); SARS-CoV-2 RNA PCR Negative (Negative)
--- OUTSIDE RECORDS SUMMARY | 2024-08-08 20:45 | XMS_ITS | Encounter Summary ---
Author Organization [facility] Address [address] [place] [address]. [place], [place] [id number] [place] [id number] Care Team Providers Care Composite Technician Name Role Phone Santa Ospina MD Primary Care Provider [phone] Reason for Visit * Reason Onset Date Comments Appointment Request 04/07/2024 Encounter Details Date Type Department Care Team (Late st Contact Info) Description 04/07/2024 Telephone [facility] - [address] [address] [address] [place] [address] Santa Ospina MD [address] [place] [address] [address] [place], [place] [id number] Appointment Request Social History Tobacco Use Types Packs/Day Years Used Date Smoking Tobacco: Former Cigarettes Q uit: 1979 Passive Smoke Exposure: Never Smokeless Tobacco: Former Quit: 06/2000 Comments:Counseled by Dr. Suzette joya. Alcohol Use Standard Drinks/Week Comments Yes 0 (1 standard drink = 0.6 oz pur e alcohol) occas. PHQ-2 Answer Date Recorded Patient Health Questionnaire-2 Score 0 10/07/2023 Comments Unknown Sex and Gender Information Value Date Recorded Sex Assigned at Not on file Legal Sex Female 2:57 PM CDT Gender Identity Not on file Sexual Orientation Not on file documented as of this encounter Progress Notes * Sherrill Mix MA - 04/07/2024 10:52 AM CDT Patient scheduled * Santa Ospina MD - 04/07/2024 10:43 AM CDT Please schedule patient for annual physical on 06/08/2024 for her annual physical. Already spoke with patient and this date works for her at 8 AM thanks. documented in this encounter Plan of Treatment Upcoming Encounters Date Type Department Care Team (Late st Contact Info) Description 09/12/2024 3:40 PM [employer] Office Visit [facility] - [address] [address] [address] [place] [address] Santa Ospina MD [address] [place] [id number] documented as of this encounter Visit Diagnoses Diagnosis Gastroesophageal reflux disease without esophagitis Esophageal reflux documented in this encounter Additional Health Concerns Assessment Noted Time PHQ-9 Depression Total Score: 0 10/07/19 24 1:17 PM [employer] documented as of this encounter Care Teams Composite Technician Relationship Specialty Start Date End Date Santa Ospina MD [address] [place] [id number] PCP - General INTERNAL MEDICINE 12/22/22 documented as of this encounter
--- OUTSIDE RECORDS SUMMARY | 2024-08-08 20:45 | XMS_ITS | Encounter Summary ---
Author Organization [facility] Address [address] [place] [address]. [place], [place] [address] [place] [address] Care Team Providers Care Die Maker Name Role Phone Santa Ospina MD Primary Care Provider [phone] Reason for Visit * Reason Comments Follow Up GERD Weight Problem Encounter Details Date Type Department Care Team (Latest Contact Info) Description 11/11/2023 10:40 AM CDT Office Visit [facility] Medical Group Multispecialty Care - [place] [address] [address] [place] [address] Santa Ospina MD [address] [place] [address] [address] [place], [place] [id number] Follow Up; GERD; Weight Problem Social History Tobacco Use Types Packs/Day Years Used Date Smoking Tobacco: Former Cigarettes Q uit: 1979 Passive Smoke Exposure: Never Smokeless Tobacco: Former Quit: 06/2000 Tobacco Cessation:Counseling Given: Yes Comments:Counseled by Dr. Ospina. Alcohol Use Standard Drinks/Week Comments Yes 0 (1 standard drink = 0.6 oz pur e alcohol) occas. PHQ-2 Answer Date Recorded Patient Health Questionnaire-2 Score 0 10/07/2023 Comments Unknown Sex and Gender Information Value Date Recorded Sex Assigned at Not on file Legal Sex Female 2:57 PM CDT Gender Identity Not on file Sexual Orientation Not on file documented as of this encounter Last Filed Vital Signs Vital Sign Reading Time Taken Comments Blood Pressure 117/77 11/11/2023 11:08 AM CDT Pulse 74 11/11/2023 11:08 AM CDT Temperature 36.4 ??C (97.6 ??F) 11/11/2023 11:08 AM C DT Respiratory Rate 16 11/11/2023 11:08 AM CDT Oxygen Saturation 99% 11/11/2023 11:08 AM CDT Inhaled Oxygen Concentration - - Weight 88.6 kg (195 lb 6.4 oz) 11/11/2023 11:08 AM CDT Height 170.2 cm (5' 7 ) 11/11/2023 11:08 AM CDT Body Mass Index 30.6 11/11/2023 11:08 AM CDT documented in this encounter Patient Instructions * Patient Instructions* Santa Ospina MD - 11/11/2023 10:40 AM CDT Follow up in 3 months for your medications for weight and gerd- February 2024. Take your omeprazole in the afternoon. Continue with the topiramate 50 mg daily along with the phentermine 15 mg daily. Continue with the omeprazole for the next 3 months till I see you. * Attachments The following attachments cannot be sent through Care Everywhere. * Acid Reflux and GERD in Adults Discharge Instructions (Bahraini) documented in this encounter Progress Notes * Lina Hester - 11/11/2023 10:40 AM CDTAddended by: LINA HESTER on: 11/11/2023 07:28 PM Modules accepted: Orders * Santa Ospina MD - 11/11/2023 10:40 AM CDTSummary: Follow up note Images from the original note were not included. Internal Medicine Outpatient Progress Note CC: Follow Up, GERD, and Weight Problem HPI: Carmelina Wall is a 53-year-old female who presents today for follow-up for recent concerns about abdominal discomfort. Has subsequently been referred to gastroenterology and has undergone an endoscopy and colonoscopy. Her endoscopy did come back showing results concerning for gastritis. Negative for H. pylori. A small polyp was removed and recommendations was made for follow-up colonoscopy in 5 years. Patient currently off her omeprazole. Encouraged to go back on medication to help with complete recovery. So far has tolerated medication with no adverse side effects. She did report feeling much better whenever she took the medication however since discontinuing, symptoms not optimally controlled at this time. No nausea or vomiting. No weight changes. Patient also here for follow-up for weight issues. Was previously on topiramate 50 mg daily as wellas phentermine 15 mg daily. Has not tolerated higher doses of phentermine. She still has a limited supply of these 2 medications at home and will continue. Her weight is down from 198 to 195 pounds. Denies any concerns for shortness of breath, chest tightness with activity, palpitations, ankle swelling, orthopnea, paroxysmal nocturnal or chronic cough. Problem List Patient Active Problem List Diagnosis GERD (gastroesophageal reflux disease) Past Medical History: Diagnosis Date GERD (gastroesophageal reflux disease) Past Surgical History: Procedure Laterality Date COLONOSCOPY N/A 11/05/2023 COLONOSCOPY, ASCENDING COLON POLYP REMOVED WITH COLD SNARE performed by Kong Dotson MD at [facility] Family History Problem Relation Name Age of Onset Diabetes Mother Diabetes Father Social History Tobacco Use Smoking status: Former Current packs/day: 0.00 Types: Cigarettes Quit date: 1979 Years since quittin.3 Passive exposure: Never Smokeless tobacco: Former Quit date: 06/2000 Tobacco comments: Counseled by Dr. Ospina. Substance Use Topics Alcohol use: Yes Comment: occas. Drug use: Never Medications: Outpatient Medications Marked as Taking for the 11/11/23 encounter (Office Visit) with Santa Ospina MD Medication Sig Dispense Refill omeprazole (PRILOSEC) 40 MG capsule Take 1 capsule (40 mg total) by mouth daily. 90 capsule 1 Phentermine HCl 15 MG Cap Take 15 mg by mouth daily with breakfast. 60 capsule 0 topiramate (TOPAMAX) 50 MG Tab Take 25 mg daily for the first 2 weeks then increase to 50 mg daily.90 tablet 0 valACYclovir (VALTREX) 1 g tablet Take 1 tablet (1,000 mg total) by mouth 2 (two) times daily. 21 tablet 0 Allergies: Review of patient's allergies indicates: No Known Allergies Review of Systems Constitutional: Negative for chills, diaphoresis, fever, malaise/fatigue and weight loss. HENT: Negative. Eyes: Negative. Respiratory: Negative. Cardiovascular: Negative for chest pain, palpitations, orthopnea, claudication, leg swelling and PND. Gastrointestinal: Positive for abdominal pain and heartburn. Negative for blood in stool, constipation, diarrhea, melena, nausea and vomiting. Genitourinary: Negative. Musculoskeletal: Negative. Neurological: Negative. Objective: Filed Vitals: 11/11/23 1108 BP: 117/77 Pulse: 74 Resp: 16 Temp: 97.6 ??F (36.4 ??C) TempSrc: Temporal SpO2: 99% Weight: 88.6 kg (195 lb 6.4 oz) Height: 1.702 m (5' 7 ) Body mass index is 30.6 kg/m??. General alert, cooperative, no distress HEENT EOM's intact. Oral mucosa normal. Nasal septum is midline. Neck Supple, symmetrical, trachea midline, no adenopathy, no thyromegaly, no JVD. Lungs No acute respiratory distress, no accessory muscle use, symmetric motion of the chest wall, lungs are clear to auscultation bilaterally, no wheezes or rales. Heart Regular rate and regular rhythm. S1, S2 normal. No murmurs. No rubs, clicks, or gallops. Abdomen Soft, non-tender, non-distended. Bowel sounds normal. No masses. No hepatomegaly appreciated. Extremities Extremities atraumatic, no cyanosis, 2+ pedal pulses, no edema Skin Skin color, texture, turgor normal. No rashes or lesions appreciated. Neurologic No focal deficits, motor strength is grossly normal and symmetric Psych Normal mood and affect MSK No synovitis, no bony tenderness, no joint effusions Lymph No cervical or supraclavicular adenopathy Assessment and Plan: Encounter Diagnose(s) ICD-10-CM SNOMED CT(R) 1. Gastroesophageal reflux disease without esophagitis K21.9 GASTROESOPHAGEAL REFLUX DISEASE WITHOUT ESOPHAGITIS omeprazole (PRILOSEC) 40 MG capsule 2. Class 1 obesity due to excess calories with serious comorbidity and body mass index (BMI) of 32.0 to 32.9 in adult E66.09 OBESITY CAUSED BY ENERGY IMBALANCE Phentermine HCl 15 MG Cap Z68.32 3. Menopause Z78.0 MENOPAUSE PRESENT FSH, FOLLICLE STIM HORMONE LH, LUTEINIZING HORMONE PROLACTIN ESTROGENS, FRACTN, SERUM 1. Gastroesophageal reflux disease without esophagitis -EGD did confirm gastritis. No H. pylori. No need for triple therapy at this time. Symptoms still not optimally controlled. Patient encouraged to restart PPI and will follow-up with her in 3 months. AVS with instructions on care. -Continue with omeprazole (PRILOSEC) 40 MG capsule; Take 1 capsule (40 mg total) by mouth daily. Dispense: 90 capsule; Refill: 1 2. Class 1 obesity due to excess calories with serious comorbidity and body mass index (BMI) of 32.0 to 32.9 in adult -This is her second refill for phentermine. Continue on topiramate 50 mg daily. Follow-up in 3 months. --Pt has elevated weight with BMI Body mass index is 30.6 kg/m??., and will need to work hard on reducing carbohydrates and total calories. -You may use the free smart phone apps such as [employer] to help track calories and try to reduce by 15% every 4 weeks. -Patient will work on reducing total portion sizes to try to reduce the size of their stomach. -Exercising about 30 minutes every day with cardio work outs. -Avoid regular soda, juices and alcohol. -Recommended limiting GPS foods (Grains, Potatoes, Sugars) as much as possible. Eating food that itis not highly processed and that they can recognize. Eating when they are hungry and not by a time schedule. -Lets aim to have them loose about 1 pound per week and 5 pounds per month. -Refill sent for phentermine HCl 15 MG Cap; Take 15 mg by mouth daily with breakfast. Dispense: 60 capsule; Refill: 0 3. Menopause - FSH, FOLLICLE STIM HORMONE - LH, LUTEINIZING HORMONE - PROLACTIN - ESTROGENS, FRACTN, SERUM Counseling given: Yes Tobacco comments: Counseled by Dr. Ospina. I personally spent a total of 30 minutes on the day of the encounter. This includes [id number]-mnui and dfg-mtfe-xw-face time I provided on the day of the encounter & excludes time spent performing separately reportable services. Side effects and less common but more severe adverse effects of recommended medical therapies were explained to the patient. Follow up office visit in 3 months. Requested MyChart or telephone follow up prn if symptoms change, worsen, or persist, or if side effect of treatment is experienced. CALVIN: This dictation was at least in part performed using [employer] speak and there may be some inherent flaws in this content designer due to the nature of this program. Santa Ospina MD Internal Medicine [facility], [facility]. documented in this encounter Plan of Treatment Upcoming Encounters Date Type Department Care Team (Late st Contact Info) Description 09/12/2024 3:40 PM REGULATORY AFFAIRS DIRECTOR Office Visit [facility] Medical Group Multispecialty Care - [place] [address] [place] [address] [address] [place] [address] Santa Ospina MD [address] [facility] [address] [place] [address] documented as of this encounter Procedures Procedure Name Priority Date/Time Associated Diagnosis Comments ESTROGENS, FRACTN, SERUM Routine 11/11/2023 11:50 AM CDT Menopause LH, LUTEINIZING HORMONE Routine 11/11/2023 11:50 AM CDT Menopause FSH, FOLLICLE STIM HORMONE Routine 11/11/2023 11:50 AM CDT Menopause PROLACTIN Routine 11/11/2023 11:50 AM CDT Menopause documented in this encounter Results * ESTROGENS, FRACTN, SERUM (11/11/2023 11:50 AM CDT) ESTRONE LC/MS/MS 36 pg/mL [facility] Comment: Adult Female Reference Ranges for Estrone: ??Follicular Phase: ?10-138 ??pg/mL ??Luteal Phase: ?16-173 ??pg/mL ??Postmenopausal Phase: ??< or = 65 pg/mL Pediatric Female Reference Ranges for Estrone: ??Pre-pubertal ?(1-9 years): ? < or = 34 pg/mL ??10-11 years: ? < or = 72 pg/mL ??12-14 years: ? < or = 75 pg/mL ??15-17 years: ? < or = 188 pg/mL This test was developed and its analytical performance characteristics have been determined by [employer]. It has not been cleared or approved by FDA. This assay has been validated pursuant to the CLIA regulations and is used for clinical purposes. ESTRADIOL ULTRA SENSITIVE 12 pg/mL [facility] Comment: Female Reference Ranges for Estradiol, Ultrasensitive (pg/mL): ??Follicular Phase: ? 39-375 ??Luteal Phase: ? 48-440 ??Postmenopausal Phase: < or = 10 This test was developed and its analytical performance characteristics have been determined by [employer]. It has not been cleared or approved by FDA. This assay has been validated pursuant to the CLIA regulations and is used for clinical purposes. ESTRIOL <0.10 ng/mL [employer] [facility] Comment: Adult Reference Ranges for Estriol: ??Adult Males: ?< or = 0.18 ng/mL ??Adult Females (non): ??< or = 0.21 ng/mL ??: ?First Trimester: ?< or = 2.50 ng/mL ?Second Trimester: ? < or = 9.60 ng/mL ?Third Trimester: ?< or = 14.60 ng/mL This test was developed and its analytical performance characteristics have been determined by [employer]. It has not been cleared or approved by FDA. This assay has been validated pursuant to the CLIA regulations and is used for clinical purposes. 11/11/2023 11:5 0 AM CDT 11/13/2023 3:23 AM CDT Narrative Resulting Agency Comment Performing Organization Information: ?Site ID: [id number] ?Name: [facility], ?Address: [id number] [place] [phone] ?Director: India Sandhu MD,PhD,SARITHA Santa Ospina MD LABORATORY Final Result Performing Organization Address City/[facility] Co de Phone Number [facility] [address] [place] [address], * PROLACTIN (11/11/2023 11:50 AM CDT) PROLACTIN 4.3 2.2 - 30.3 NG/ML 11/12/2023 2:22 PM CDT [facility] Comment: ASSAY PERFORMED BY CHEMILUMINESCENCE METHODOLOGY USING [employer]. PATIENT RESULTS DETERMINED BY ASSAYS USING DIFFERENT MANUFACTURERS FOR METHODS MAY NOT BE COMPARABLE. 11/11/2023 11:5 0 AM CDT Santa Ospina MD LABORATORY Final Result Performing Organization Address City/[facility] Co de Phone Number [facility] [address] [place] [address], [phone] * LH, LUTEINIZING HORMONE (11/11/2023 11:50 AM CDT) Luteinizing Hormone 27.1 MIU/ML 11/11 2:22 PM CDT [facility] Comment: FOLLIC PHASE: 1.9 TO 12.8 mIU/mL MID CYCLE: 22.8 TO 76.1 mIU/mL LUTEAL PHASE: 0.6 TO 13.5 mIU/mL POST MENOPAUSAL W/O HRT: 8.6 TO 61.8 mIU/mL ASSAY PERFORMED BY CHEMILUMINESCENCE METHODOLOGY USING [employer]. PATIENT RESULTS DETERMINED BY ASSAYS USING DIFFERENT MANUFACTURERS FOR METHODS MAY NOT BE COMPARABLE. 11/11/2023 11:5 0 AM CDT Santa Ospina MD LABORATORY Final Result Performing Organization Address [facility] Co de Phone Number [facility] [address] [place] [address], [phone] * FSH, FOLLICLE STIM HORMONE (11/11/2023 11:50 AM CDT) FSH 58.0 MIU/ML 11/12/2023 2:22 PM CDT [facility] Comment: FOLLIC PHASE: 2.3 TO 12.6 mIU/mL MID CYCLE: 5.2 TO 17.5 mIU/mL LUTEAL PHASE: 1.7 TO 12.9 mIU/mL POST MENOPAUSAL NOT ON THERAPY: 12.7 TO 132.2 mIU/mL ASSAY PERFORMED BY CHEMILUMINESCENCE METHODOLOGY USING [place]. PATIENT RESULTS DETERMINED BY ASSAYS USING DIFFERENT MANUFACTURERS FOR METHODS MAY NOT BE COMPARABLE. 11/11/2023 11:5 0 AM CDT Santa Ospina MD LABORATORY Final Result Performing Organization Address [facility] Co de Phone Number [facility] [address] [place] [address], [phone] documented in this encounter Visit Diagnoses Diagnosis Gastroesophageal reflux disease without esophagitis Esophageal reflux Class 1 obesity due to excess calories with serious comorbidity and body mass index (BMI) of 32.0 to 32.9 in adult Menopause Asymptomatic postmenopausal status (age-related) (natural) documented in this encounter Additional Health Concerns Assessment Noted Time PHQ-9 Depression Total Score: 0 10/07/19 24 1:17 PM REGULATORY AFFAIRS DIRECTOR documented as of this encounter Care Teams Die Maker Relationship Specialty Start Date End Date Santa Ospina MD [address] [address] PCP - General INTERNAL MEDICINE 12/22/22 documented as of this encounter
--- OUTSIDE RECORDS SUMMARY | 2024-08-08 20:45 | XMS_ITS | Encounter Summary ---
Author Organization [facility] Address [address] [place] [address]. [place] [address] [place] [address] Care Team Providers Care Handicapped Teacher Name Role Phone Santa Ospina MD Primary Care Provider [phone] Reason for Visit * Auth/Cert (Routine) Specialty Diagnoses / Procedures Referred By Contac t Referred To Contact Diagnoses GERD (gastroesophageal reflux disease) Screening for colon cancer screening colonoscopy, GERD Procedures UPPER GI ENDOSCOPY,BIOPSY COLONOSCOPY,DIAGNOSTIC EGD WITH BIOPSY COLONOSCOPY Kong Dotson MD [address] [address] Phone: tel: fax: Referral ID Status Reason Start Date Expiration Date Visits Re quested Visits Authorized [id number] 1 1 Encounter Details Date Type Department Care Team (Late st Contact Info) Description 11/05/2023 1:52 PM CDT Anesthesia Event [facility] [address] Deonte Armstrong MD [address] [place] [address] [place] [address] Anesthesia Record Procedure Summary Procedure Name Responsible Anesthesiologist Anesthesia Start Time Anesthesia Stop Time EGD, GASTRIC BIOPSY TO RULE OUT H.PLYORIC WITH COLD FORCEPS Deonte Armstrong MD 11/05/23 1352 11/05/23 1418 Events Date Time Event Comment 11/05/2023 1318 1318 AN Anesthesia Prepped 1340 AN HAND CANDY CUTTER Prepped 1352 An Start Patient ID and consent checked and patient reassessed. 1352 An Start Data 1354 Nasal Cannula Applied 1401 Bite Block Inserted 1401 An Induction The patient was reevaluated immediately before moderate or deep sedation use and before anesthesia induction. 1402 Anesthesia Ready 1407 Bite Block Removed 1418 An Emergence 1418 Nasal Cannula Removed 1418 an stop data 1418 Post Anesthetic Care Handoff I completed my handoff to the receiving nurse during which we: 1. Identified the patient 2. Identified the responsible provider 3. Reviewed the pertinent medical history 4. Discussed the surgical course 5. Reviewed intra-op anesthesia management and issues during anesthesia 6. Set expectations for post-procedure period 7. Allowed opportunity for questions and acknowledgement of understanding. 1418 An Stop Meds Name Total lidocaine (PF) (XYLOCAINE) 2% injection 100 mg propofol (DIPRIVAN) 200 mg/20 mL injecti on 200 mg lactated ringers infusion 300 mL * Agents Name O2 Ancillary O2 * Blood No blood administrations on file. Lines, Drains, and Airways Type Details Placement Removal Peripheral IV Placement Date: 11/24; Placement Time: 1348; Placed Outside of This Facility?: No; Size: 20 G; Orientation: Proximal, Right; Location: Forearm; Site Prep: Chlorhexidine; Inserted By: JEN Altman; Insertion attempts: 1; Ultrasound-guided Placement?: No; Patient Tolerance: Tolerated well; Removal Date: 11/05/23; Removal Time: 1450; Removal Reason: Patient Discharged 11/05/23 1348 by Amie Liz RN 11/05/23 1450 by Anupama Manrique RN documented in this encounter Social History Tobacco Use Types Packs/Day Years Used Date Smoking Tobacco: Former Cigarettes Q uit: 1979 Comments:Counseled by Dr. Suzette joya. Alcohol Use [...] on file documented as of this encounter OR Notes * Anesthesia Postprocedure Evaluation - Deonte Armstrong MD - 11/05/2023 2:39 PM CDT Anesthesia Post-op Note Carmelina Tomlin Mae Procedure(s): EGD, GASTRIC BIOPSY TO RULE OUT H.PLYORIC WITH COLD FORCEPS COLONOSCOPY, ASCENDING COLON POLYP REMOVED WITH COLD SNARE Anesthesia type: general, MAC Vitals: 11/05/23 1435 BP: 137/77 Vitals: 11/05/23 1430 Pulse: 90 Vitals: 11/05/23 1422 Resp: 18 Vitals: 11/05/23 1422 Temp: 36.3 ??C Vitals: 11/05/23 1435 SpO2: 100% Patient Location: Phase II/Outpatient Level of Consciousness: awake, oriented and alert Pain Management: adequate analgesia Airway Patency: patent Respiratory Status: acceptable Cardiovascular Status: acceptable, blood pressure returned to baseline and stable Post-Op Nausea: none Postoperative Hydration: euvolemic There were no known notable events for this encounter. * Anesthesia Preprocedure Evaluation - Deonte Armstrong MD - 11/05/2023 1:17 PM CDT Anesthesia ROS/MED History Reviewed: Patient summary , Nursing notes , ECG, Family history anesthesia, Anesthesia history , Medications , Labs , Images/Studies Pre-Anesthetic State: alert, awake and responds appropriately Pulmonary Cardiovascular Neuro/Psych Substance Use GI/Hepatic/Renal (+) GERD Endo/Other GENERAL COMMENTS No Known Allergies Past Medical History: No date: GERD (gastroesophageal reflux disease) Past Surgical History: No date: HERNIA REPAIR NPO Status: Physical Evaluation Airway Mallampati: II TM Distance: >3 FB Neck ROM: normal Dental Pulmonary Pulmonary exam normal Breath sounds clear to auscultation Cardiovascular Rhythm: regular Rate: normal Cardiovascular exam normal Other findings: Weight 81.6 kg (180 lb). No results for input(s): WBC , RBC , HGB , HCT , PLT , NA , K , CL , CO2 , AGAP , BUN , CR , BUNCREATININ , GFRNON , GFR , GLU , CA in the last 72 hours. STOP-Bang Assessment: Do you snore loudly?: 0 Do you have or are you being treated for high blood pressure?: 0 Recent BMI (Calculated): 32 Is BMI greater than 35 kg/m2?: 0=No Age older than 50 years old?: 1=Yes Gender - Male: 0=No Anesthesia Plan ASA 2 Intravenous Induction Anesthesia type: general and MAC Plan for Airway: nasal cannula/simple face mask Plan for Post-op Pain Plan: oral pain medication, IV analgesics and as per surgeon Discussed potential risks of General Anesthesia including but not limited to corneal abrasion, visual impairment or visual loss, mouth injury, dental damage, sore throat, hoarseness, esophageal injury, awareness under anesthesia, nerve injury due to positioning, aspiration, pneumonia, stroke, cardiac event, adverse drug reactions and . Informed Consent Anesthetic plan and risks discussed with patient of whom consent was obtained. . documented in this encounter Plan of Treatment Upcoming Encounters Date Type Department Care Team (Late st Contact Info) Description 09/12/2024 3:40 PM RESERVE OFFICER Office Visit [facility] Medical Group Multispecialty Care - [place] [address] [address] [place] [address] Santa Ospina MD [address] [place] [phone] documented as of this encounter Visit Diagnoses Not on filedocumented in this encounter Administered Medications Inactive Administered Medications - up to 3 most recent administrations Medication Order MAR Action Action Date Dose Rate Site lactated ringers infusion at 10 mL/hr, Intravenous, Continuous, Starting on Yelitza 11/05/23 at 1400, Until Yelitza 11/05/23 at 1736, Infuse at TKO rate, Pre-Op New Bag 11/05/2023 1:52 PM CDT 50 mL/hr lidocaine (PF) (XYLOCAINE) 2 % injection Intravenous, PRN, Starting on Yelitza 11/05/23 at 1402, Until Yelitza 11/05/23 at 1418, Anesthesia Intra-Op Given 11/05/2023 2:02 PM CDT 100 mg propofol (DIPRIVAN) IV bolus Intravenous, PRN, Starting on Yelitza 11/05/23 at 1402, Until Yelitza 11/05/23 at 1418, Anesthesia Intra-Op Given 11/05/2023 2:11 PM CDT 30 mg Given 11/05/2023 2:09 PM CDT 30 mg Given 11/05/2023 2:06 PM CDT 20 mg documented in this encounter Additional Health Concerns Assessment Noted Time PHQ-9 Depression Total Score: 0 10/07/19 24 1:17 PM RESERVE OFFICER documented as of this encounter Care Teams Handicapped Teacher Relationship Specialty Start Date End Date Santa Ospina MD [address] [address] PCP - General INTERNAL MEDICINE 12/22/22 documented as of this encounter
--- OUTSIDE RECORDS SUMMARY | 2024-08-08 20:45 | XMS_ITS | Encounter Summary ---
Author Organization [facility] Address [address] [place] [address]. [place], [place] [address] [place] [address] Care Team Providers Care Dish Maker Name Role Phone Santa Ospina MD Primary Care Provider [phone] Reason for Visit * Reason Comments Allied Health Visit Pt here for TB place ment Encounter Details Date Type Department Care Team (Latest Contact Info) Description 05/31/2024 3:00 PM CDT Allied Health/Nurse Visit [place] [address] [address] [place] [address] Santa Ospina MD [address] [place] [address] [address] [place], [place] [id number] Allied Health Visit (Pt here for TB placement ) Social History Tobacco Use Types Packs/Day Years Used Date Smoking Tobacco: Former Cigarettes Q uit: 1979 Passive Smoke Exposure: Never Smokeless Tobacco: Former Quit: 06/2000 Comments:Counseled by Dr. Suzette joya. Alcohol Use Standard Drinks/Week Comments Yes 0 (1 standard drink = 0.6 oz pur e alcohol) occas. PHQ-2 Answer Date Recorded Patient Health Questionnaire-2 Score 0 06/10/2024 Comments Unknown Sex and Gender Information Value Date Recorded Sex Assigned at Not on file Legal Sex Female 2:57 PM CDT Gender Identity Not on file Sexual Orientation Not on file documented as of this encounter Plan of Treatment Upcoming Encounters Date Type Department Care Team (Late st Contact Info) Description 09/12/2024 3:40 PM MECHANICAL TECHNOLOGIST Office Visit [address] [place] [address] Santa Ospina MD [address] [place] [address] documented as of this encounter Visit Diagnoses Diagnosis Visit for TB skin test- Primary Screening examination for pulmonary tuberculosis documented in this encounter Additional Health Concerns Assessment Noted Time PHQ-9 Depression Total Score: 0 10/07/19 24 1:17 PM MECHANICAL TECHNOLOGIST documented as of this encounter Care Teams Dish Maker Relationship Specialty Start Date End Date Santa Ospina MD [address] [place] [address] PCP - General INTERNAL MEDICINE 12/22/22 documented as of this encounter
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
--- OUTSIDE RECORDS SUMMARY | 2024-08-08 20:45 | XMS_ITS | Encounter Summary ---
Author Organization [facility] Address [address] [place] [address]. [place], [place] [address] [place] [address] Care Team Providers Care Vulcanizing Machine Operator Name Role Phone Santa Ospina MD Primary Care Provider [phone] Encounter Details Date Type Department Care Team (Latest Contact Info) Description 11/05/2023 Travel Social History Tobacco Use Types Packs/Day Years [...] st Contact Info) Description 09/12/2024 3:40 PM ENVIRONMENTAL REMEDIATION SPECIALIST Office Visit [facility] Medical Group Multispecialty Care - [place] [address] [address] [place] [address] Santa Ospina MD [address] [place] [address] [address] [place] [address] documented as of this encounter Visit Diagnoses Not on filedocumented in this encounter Additional Health Concerns Assessment Noted Time PHQ-9 Depression Total Score: 0 10/07/19 24 1:17 PM ENVIRONMENTAL REMEDIATION SPECIALIST documented as of this encounter Care Teams Vulcanizing Machine Operator Relationship Specialty Start Date End Date Santa Ospina MD [address] [address] PCP - General INTERNAL MEDICINE 12/22/22 documented as of this encounter
--- OUTSIDE RECORDS SUMMARY | 2024-08-08 20:45 | XMS_ITS | Encounter Summary ---
Author Organization [facility] Address [address] [place] [address]. [place], [place] [address] [place] [address] Care Team Providers Care Assistant Banquet Manager Name Role Phone Santa Ospina MD Primary Care Provider [phone] Encounter Details Date Type Department Care Team (Latest Contact Info) Description 11/11/2023 Travel Social History Tobacco Use Types Packs/Day [...] st Contact Info) Description 09/12/2024 3:40 PM CUTTER MACHINE TENDER Office Visit [facility] Medical Group Multispecialty Care - [address] [place] [address] Santa Ospina MD [address] [place] [address] [address] [place], [place] [id number] documented as of this encounter Visit Diagnoses Not on filedocumented in this encounter Additional Health Concerns Assessment Noted Time PHQ-9 Depression Total Score: 0 10/07/19 24 1:17 PM CUTTER MACHINE TENDER documented as of this encounter Care Teams Assistant Banquet Manager Relationship Specialty Start Date End Date Santa Ospina MD [address] [address] PCP - General INTERNAL MEDICINE 12/22/22 documented as of this encounter
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
--- OUTSIDE RECORDS SUMMARY | 2024-08-08 20:45 | XMS_ITS | Encounter Summary ---
Author Organization [facility] Address [address] [place] [address]. [place], [place] [address] [place] [address] Care Team Providers Care Life Skills Specialist Name Role Phone Santa Ospina MD Primary Care Provider [phone] Encounter Details Date Type Department Care Team (Latest Contact Info) Description 06/10/2024 Travel Social History Tobacco Use Types Packs/Day [...] st Contact Info) Description 09/12/2024 3:40 PM SHORE MAN Office Visit [facility] Medical Group Multispecialty Care - [address] [place] [address] Santa Ospina MD [address] [place] [address] 157 [place] [address] documented as of this encounter Visit Diagnoses Not on filedocumented in this encounter Additional Health Concerns Assessment Noted Time PHQ-9 Depression Total Score: 2 06/10/20 24 8:27 AM SHORE MAN documented as of this encounter Care Teams Life Skills Specialist Relationship Specialty Start Date End Date Santa Ospina MD [address] [address] PCP - General INTERNAL MEDICINE 12/22/22 documented as of this encounter
--- OUTSIDE RECORDS SUMMARY | 2024-08-08 20:45 | XMS_ITS | Encounter Summary ---
Author Organization [facility] Address [address] [place] [address]. [place] [address] [place] [address] Care Team Providers Care Waterproofer Name Role Phone Santa Ospina MD Primary Care Provider [phone] Encounter Details Date Type Department Care Team (Latest Contact Info) Description 11/11/2023 - 11/11/2023 11:59 PM CDT Hospital Encounter [facility] [address] [place] [address] Santa Ospina MD 1188 [facility] [address] [place] [address] Discharge Disposition: Home or Self Care (Routine Discharge) Social History Tobacco Use Types Packs/Day Years [...] on file documented as of this encounter Medications at Time of Discharge omeprazole (PRILOSEC) 40 MG capsuleIndication s:Gastroesophagea l reflux disease without esophagitis Take 1 capsule (40 mg total) by mouth daily. 90 capsule 1 11/11/2023 09/05/202 4 Phentermine HCl 15 MG CapIndications:Cl ass 1 obesity due to excess calories with serious comorbidity and body mass index (BMI) of 32.0 to 32.9 in adult Take 15 mg by mouth daily with breakfast. 60 capsule 11/11/2023 4 topiramate (TOPAMAX) 50 MG TabIndications:Cl ass 1 obesity due to excess calories with serious comorbidity and body mass index (BMI) of 32.0 to 32.9 in adult Take 25 mg daily for the first 2 weeks then increase to 50 mg daily. 90 tablet 09/09/2023 4 valACYclovir (VALTREX) 1 g tabletIndications :Herpes Take 1 tablet (1,000 mg total) by mouth 2 (two) times daily. 21 tablet 06/05/2023 4 documented as of this encounter Plan of Treatment Upcoming Encounters Date Type Department Care Team (Late st Contact Info) Description 09/12/2024 3:40 PM BILLING ADJUDICATOR Office Visit [facility] Medical Group Multispecialty Care - [address] [place] [address] Santa Ospina MD [address] [place] [address] documented as of this encounter Visit Diagnoses Not on filedocumented in this encounter Additional Health Concerns Assessment Noted Time PHQ-9 Depression Total Score: 0 10/07/19 24 1:17 PM BILLING ADJUDICATOR documented as of this encounter Care Teams Waterproofer Relationship Specialty Start Date End Date Santa Ospina MD [address] [place] [address] PCP - General INTERNAL MEDICINE 12/22/22 documented as of this encounter
--- OUTSIDE RECORDS SUMMARY | 2024-08-08 20:45 | XMS_ITS | Encounter Summary ---
Author Organization [facility] Address [address] [place] [address]. [place], [place] [address] [place] [address] Care Team Providers Care Associate Manager Name Role Phone Santa Ospina MD Primary Care Provider [phone] Reason for Visit * Reason Onset Date Comments Record Request 06/13/2024 Encounter Details Date Type Department Care Team (Late st Contact Info) Description 06/13/2024 Telephone [facility] Medical Group Multispecialty Care - [place] [address] [address] [place], [place] [address] Santa Ospina MD [address] [place] [address] [address] [place] [address] Record Request Social History Tobacco Use Types Packs/Day [...] as of this encounter Progress Notes * Noa Corbin MA - 06/14/2024 8:42 AM CST Received and sent to PCP SINKER APPRENTICE * Noa Corbin MA - 06/13/2024 12:57 PM CST I have faxed Dr. Denney Stating for pap report SINKER APPRENTICE documented in this encounter Plan of Treatment Upcoming Encounters Date Type Department Care Team (Late st Contact Info) Description 09/12/2024 3:40 PM DIE SINKER APPRENTICE Office Visit [facility] Medical Group Multispecialty Care - [place] [address] [address] [place] [address] Santa Ospina MD [address] [place] [address] [phone] documented as of this encounter Visit Diagnoses Not on filedocumented in this encounter Additional Health Concerns Assessment Noted Time PHQ-9 Depression Total Score: 2 06/10/20 24 8:27 AM DIE SINKER APPRENTICE documented as of this encounter Care Teams Associate Manager Relationship Specialty Start Date End Date Santa Ospina MD [address] [place] [address] [phone] PCP - General INTERNAL MEDICINE 12/22/22 documented as of this encounter
--- OUTSIDE RECORDS SUMMARY | 2024-08-08 20:45 | XMS_ITS | Encounter Summary ---
Author Organization [facility] Address [address] [place] [address]. [place], [place] [address] [place] [address] Care Team Providers Care Files Supervisor Name Role Phone Santa Ospina MD Primary Care Provider [phone] Encounter Details Date Type Department Care Team (Latest Contact Info) Description 10/07/2023 Travel Social History Tobacco Use Types Packs/Day Years Used Date Smoking Tobacco: Former Pipe Smokeless Tobacco: Former Snuff Quit: 06/2000 Comments:Counseled by Dr. Suzette joya. PHQ-2 Answer Date Recorded Patient Health Questionnaire-2 [...] st Contact Info) Description 09/12/2024 3:40 PM MOTION PICTURE CAMERA LENS TECHNICIAN Office Visit [facility] Medical Group Multispecialty Care - [place] [address] [address] [place] [address] Santa Ospina MD [address] [place] [address] documented as of this encounter Visit Diagnoses Not on filedocumented in this encounter Additional Health Concerns Assessment Noted Time PHQ-9 Depression Total Score: 0 10/07/19 24 1:17 PM MOTION PICTURE CAMERA LENS TECHNICIAN documented as of this encounter Care Teams Files Supervisor Relationship Specialty Start Date End Date Santa Ospina MD [address] [place] [address] PCP - General INTERNAL MEDICINE 12/22/22 documented as of this encounter
--- OUTSIDE RECORDS SUMMARY | 2024-08-08 20:45 | XMS_ITS | Encounter Summary ---
Author Organization [facility] Address [address] [place] [address]. [place], [place] [address] [place] [address] Care Team Providers Care Freight Car Repairer Name Role Phone Santa Ospina MD Primary Care Provider [phone] Reason for Visit * Reason Comments New Patient New patient * Consultation (Routine) - Closed Specialty Diagnoses / Procedures Referred By Contshanna t Referred To Contact GASTROENTEROLOGY Diagnoses Screen for colon cancer Santa Ospina MD 1188 [facility] [address] [place] [address] Phone: tel: fax: [facility] Medical [facility] [address] [address] Phone: tel: fax: Referral ID Status Reason Start Date Expiration Date Visits Re quested Visits Authorized [id number] Closed 06/05/2023 07/06/2024 99 99 Encounter Details Date Type Department Care Team (Latest Contact Info) Description 10/07/2023 1:00 PM SALES AND MARKETING ASSOCIATE Office Visit [facility] Medical [facility] Multispecialty Care - [facility] [address] [facility], [address] [place] [id number] Lidia Dotson MD [address] [facility] [address] [place] [address] New Patient (New patient) Social History Tobacco Use Types Packs/Day Years Used Date Smoking Tobacco: Former Pipe Smokeless Tobacco: Former Snuff Quit: 06/2000 Tobacco Cessation:Counseling Given: No Comments:Counseled by Dr. Ospina. PHQ-2 Answer Date Recorded Patient Health Questionnaire-2 Score 0 10/07/2023 Comments Unknown Sex and Gender Information Value Date Recorded Sex Assigned at Not on file Legal Sex Female 2:57 PM CDT Gender Identity Not on file Sexual Orientation Not on file documented as of this encounter Last Filed Vital Signs Vital Sign Reading Time Taken Comments Blood Pressure 125/86 10/07/2023 1:18 PM SALES AND MARKETING ASSOCIATE Pulse 100 10/07/2023 1:18 PM SALES AND MARKETING ASSOCIATE Temperature 37 ??C (98.6 ??F) 10/07/2023 1:18 PM SALES AND MARKETING ASSOCIATE Respiratory Rate 18 10/07/2023 1:18 PM SALES AND MARKETING ASSOCIATE Oxygen Saturation 100% 10/07/2023 1:18 PM SALES AND MARKETING ASSOCIATE Inhaled Oxygen Concentration - - Weight 89.8 kg (198 lb) 10/07/2023 1:18 PM SALES AND MARKETING ASSOCIATE Height 167.6 cm (5' 6 ) 10/07/2023 1:18 PM SALES AND MARKETING ASSOCIATE Body Mass Index 31.96 10/07/2023 1:18 PM SALES AND MARKETING ASSOCIATE documented in this encounter Progress Notes * Lidia Dotson MD - 10/07/2023 1:00 PM CST Images from the original note were not included. Gastroenterology Initial Visit Reason for Visit: New Patient (New patient) History of Present Illness: 53-year-old female complains of increased reflux and gas at nighttime. She was found to have lactose intolerance and adjusted her diet accordingly. Where she continues to have some food and indigestion symptoms. Has been taking some stomach medicines, omeprazole and it seems to be helping. She doeshave nighttime reflux. She also has a history of diverticulitis. ROS: General: No fever, chills, malaise, fatigue, weight loss or gain HEENT: No acute changes in vision or hearing Respiratory: No shortness of breath, cough, sputum production, hemoptysis Cardiovascular: No chest pain, palpitations, orthopnea Gastrointestinal: As per HPI Musculoskeletal: No dysuria, hematuria, incontinence Neuro: No extremity edema, myalgia Hematology: No easy bruising, bleeding Skin: No new skin rashes or lesions Medications: Current Outpatient Medications: omeprazole (PRILOSEC) 40 MG capsule, Take 1 capsule (40 mg total) by mouth daily., Disp: 90 capsule, Rfl: 0 Phentermine HCl 15 MG Cap, Take 15 mg by mouth daily with breakfast., Disp: 60 capsule, Rfl: 0 topiramate (TOPAMAX) 50 MG Tab, Take 25 mg daily for the first 2 weeks then increase to 50 mg daily., Disp: 90 tablet, Rfl: 0 valACYclovir (VALTREX) 1 g tablet, Take 1 tablet (1,000 mg total) by mouth 2 (two) times daily., Disp: 21 tablet, Rfl: 0 Allergies: Not on File Medical History: History reviewed. No pertinent past medical history. Surgical History: History reviewed. No pertinent surgical history. Social History: Family History: No family history on file. PE: Filed Vitals: 10/07/23 1318 BP: 125/86 Pulse: 100 Resp: 18 Temp: 98.6 ??F (37 ??C) TempSrc: Temporal SpO2: 100% Weight: 89.8 kg (198 lb) Height: 1.676 m (5' 6 ) General: In NAD, pleasant and appropriate HEENT: Anicteric Cardiovascular: RRR, no m Pulmonary: CTA BL, no added sounds Abdomen: Soft, ND/NT, normoactive BS Skin: Anicteric, no rashes Neuro: A&Ox3 Labs: Diagnoses/Impression: Some abdominal pain, bloating. Screening colonoscopy. Nighttime reflux. Recommendations and Plan: EGD for biopsy for H. pylori. Colonoscopy. All questions answered More recommendations to follow endoscopic evaluation Risks/Benefits/Options: Patient presented with risks (can include but are not limited to: discomfort, missing lesions, allergic or adverse reaction to the sedation, perforation of the bowel which may require hospitaliztion and surgery, bleeding, infection, aspiration), benefits, and alternatives to the procedure(s) and they are in agreement to proceed as planned. LIDIA DOTSON MD 10/07/2023 Voice recognition software utilized S AND MARKETING ASSOCIATE documented in this encounter Plan of Treatment Upcoming Encounters Date Type Department Care Team (Late st Contact Info) Description 09/12/2024 3:40 PM SALES AND MARKETING ASSOCIATE Office Visit [facility] Medical Group Multispecialty Care - [place] [address] [address] [place] [address] Santa Ospina MD [address] [place] [address] documented as of this encounter Visit Diagnoses Diagnosis Dyspepsia- Primary Dyspepsia and other specified disorders of function of stomach Screen for colon cancer Special screening for malignant neoplasms, colon Bloating Flatulence, eructation, and gas pain documented in this encounter Additional Health Concerns Assessment Noted Time PHQ-9 Depression Total Score: 0 10/07/19 24 1:17 PM SALES AND MARKETING ASSOCIATE documented as of this encounter Care Teams Freight Car Repairer Relationship Specialty Start Date End Date Santa Ospina MD [address] [place] [address] PCP - General INTERNAL MEDICINE 12/22/22 documented as of this encounter
--- OUTSIDE RECORDS SUMMARY | 2024-08-08 20:45 | XMS_ITS | Encounter Summary ---
Author Organization [facility] Address [address] [place] [address]. [place], [place] [id number] [place] [address] Care Team Providers Care Human Resources Intern Name Role Phone Santa Ospina MD Primary Care Provider [phone] Reason for Referral * Imaging (Routine) - Authorized Specialty Diagnoses / Procedures Referred By Contac t Referred To Contact RADIOLOGY Diagnoses Encounter for screening mammogram for malignant neoplasm of breast Procedures MG SCREENING W CECIL ASUNCION DIGI Santa Ospina MD [address] [place] [address] Phone: tel: fax: Referral ID Status Reason Start Date Expiration Date V isits Requested Visits Authorized [id number] Authorized 06/10/2024 08/10/2025 1 1 RATORY ANALYST Reason for Visit * Reason Comments Physical Follow Up Follow chronic medic al issues Encounter Details Date Type Department Care Team (Latest Contact Info) Description 06/10/2024 7:20 AM LABORATORY ANALYST Office Visit [facility] Multispecialty Care - [address] [place] [address] [address] [place] [address] Santa Ospina MD [address] [place] [id number] Physical; Follow Up (Follow chronic medical issues) Social History Tobacco Use Types Packs/Day Years [...] Sign Reading Time Taken Comments Blood Pressure 124/84 06/10/2024 7:34 AM LABORATORY ANALYST Pulse 74 06/10/2024 7:34 AM LABORATORY ANALYST Temperature 36.2 ??C (97.2 ??F) 06/10/2024 7:34 AM CS T Respiratory Rate 16 06/10/2024 7:34 AM LABORATORY ANALYST Oxygen Saturation 100% 06/10/2024 7:34 AM LABORATORY ANALYST Inhaled Oxygen Concentration - - Weight 89.3 kg (196 lb 12.8 oz) 06/10/2024 7:34 AM LABORATORY ANALYST Height 170.2 cm (5' 7 ) 06/10/2024 7:34 AM LABORATORY ANALYST Body Mass Index 30.82 06/10/2024 7:34 AM LABORATORY ANALYST documented in this encounter Patient Instructions * Patient Instructions* Santa Ospina MD - 06/10/2024 7:20 AM LABORATORY ANALYST Follow up in September 2024 for your weight loss tips. Please follow up with the weight loss clinic and discuss tirzepatide or sermaglutide medication. RATORY ANALYST RATORY ANALYST * Attachments The following attachments cannot be sent through Care Everywhere. * Yearly Physical for Adults (Estonian) documented in this encounter Progress Notes * Santa Ospina MD - 06/10/2024 7:20 AM CSTAssociated Order(s): *Ear Cerumen Removal Post-Procedure Diagnose(s): Bilateral impacted cerumen Summary: Annual physical notes Images from the original note were not included. ANNUAL PHYSICAL NOTES Encounter Date: 06/10/2024 Chief Complaint: 54-year-old female presents for Physical and Follow Up (Follow chronic medical issues) The patient is being seen for a health maintenance evaluation for follow up of chronic medical issues. GERD Her recent EGD showed evidence of gastritis and gastric polyp that was removed. She is now on omeprazole 40 mg daily and reports she is doing well. No side effects. She is taking her medication daily. No melena or blood in stool. She has avoided late eating which is helping. She is on topiramate 50 mg daily to help with cravings and weight. She was on phentermine 15 mg daily and run out about one month ago. Cold sores She is doing well for now. She is on valtrex and no recent flare ups. General Health: good Dental Health: Sees dentist regularly Vision Health: Wears glasses Hearing Health: No hearing problems Immunizations Needed: Influenza, COVID, Tdap, and Shingrix Weight: Obese Body mass index is 30.82 kg/m??. Physical Activity: Acitve lifestyle Cervical Cancer Screening: up to date Breast Cancer Screening: Due Colorectal Cancer Screening: UTD Metabolic Screening: Patient needs to be screened today. HCV Screening: done PHQ-9 Screening Score: PHQ-9: 10/07/2023 1:17 PM 06/10/2024 8:27 AM PHQ2/PHQ 9 DEPRESSION SCREEN QUESTIONAIRE Little interest or pleasure in doing things Not at all Not at all Feeling down, depressed, or hopeless Not at all Not at all Patient Health Questionnaire-2 Score 0 0 Trouble falling or staying asleep, or sleeping too much Not at all Several days Feeling tired or having little energy Not at all Several days Poor appetite or overeating Not at all Not at all Feeling bad about yourself - or that you are a failure or have let yourself or your family down Notat all Not at all Trouble concentrating on things, such as reading the newspaper or watching television Not at all Not at all Moving or speaking so slowly that other people could have noticed? Or the opposite - being so fidgety or restless that you have been moving around a lot more than usual. Not at all Not at all Thoughts that you would be better off or hurting yourself in some way Not at all Not at all Patient Health Questionnaire-9 Score 0 2 How difficult have these problems made it for you to do your work, take care of things at home, or get along with other people? Not difficult at all SHARON-7 (Generalized Anxiety Disorder) Screening 09/09/2023 9:57 AM 06/10/2024 8:27 AM SHARON-7 Feeling nervous, anxious, or on edge 1 1 Not being able to stop or control worrying 0 0 Worrying too much about different things 1 1 Trouble relaxing 1 0 Being so restless that it is hard to sit still 0 0 Becoming easily annoyed or irritable 1 0 Feeling afraid as if something awful might happen 0 0 SHARON-7 Total Score 4 2 How difficult have these problems made it for you to do your work, take care of things at home, or get along with other people? Not difficult at all Peggy Smoking Status: History Smoking Status Former Types: Cigarettes Smokeless Tobacco Former Quit date: 06/2000 Patient does not meet criteria for Low Dose CT screening Sleep Apnea Risk Factors: None Review of Systems Constitutional: Negative for activity change, appetite change, chills, fatigue, fever and unexpected weight change. HENT: Negative for congestion, hearing loss, mouth sores, postnasal drip, rhinorrhea, sinus pressure, sinus pain, sore throat, tinnitus and voice change. Eyes: Negative for pain, discharge, redness, itching and visual disturbance. Respiratory: Negative for cough, chest tightness, shortness of breath and wheezing. Cardiovascular: Negative for chest pain, palpitations and leg swelling. Gastrointestinal: Negative for abdominal distention, abdominal pain, blood in stool, constipation, diarrhea, nausea and vomiting. Genitourinary: Negative for decreased urine volume, difficulty urinating, dysuria, flank pain, frequency, hematuria and urgency. Musculoskeletal: Negative for arthralgias, back pain, gait problem, joint swelling and myalgias. Skin: Negative for pallor, rash and wound. Neurological: Negative for dizziness, tremors, syncope, weakness, light- headedness and headaches. Hematological: Negative for adenopathy. Does not bruise/bleed easily. Psychiatric/Behavioral: Negative for agitation, behavioral problems, confusion, decreased concentration, dysphoric mood, hallucinations, self-injury, sleep disturbance and suicidal ideas. The patientis not nervous/anxious and is not hyperactive. Patient Active Problem List Diagnosis GERD (gastroesophageal reflux disease) Past Medical History: Diagnosis Date GERD (gastroesophageal reflux disease) Past Surgical History: Procedure Laterality Date COLONOSCOPY N/A 11/05/2023 COLONOSCOPY, ASCENDING COLON POLYP REMOVED WITH COLD SNARE performed by Kong Dotson MD at [facility] GI HERNIA REPAIR Family History Problem Relation Name Age of Onset Diabetes Mother Diabetes Father Social History Socioeconomic History Marital status: Spouse name: Not on file Number of children: Not on file Years of education: Not on file Highest education level: Not on file Occupational History Not on file Tobacco Use Smoking status: Former Current packs/day: 0.00 Types: Cigarettes Quit date: 1979 Years since quittin.8 Passive exposure: Never Smokeless tobacco: Former Quit date: 06/2000 Tobacco comments: Counseled by Dr. Ospina. Vaping Use Vaping status: Not on file Substance and Sexual Activity Alcohol use: Yes Comment: occas. Drug use: Never Sexual activity: Not on file Other Topics Concern Not on file Social History Narrative Not on file Social Drivers of Health Financial Resource Strain: Not on file Food Insecurity: Not on file Transportation Needs: Not on file Physical Activity: Not on file Stress: Not on file Social Connections: Not on file Intimate Partner Violence: Not on file Housing Stability: Not on file Immunization History Administered Date(s) Administered Fluzone (IIV3, Trivalent, 0.5 ML Prefilled Syringe) 06/10/2024 PFIZER COVID-19 (ORIGINAL FORMULATION, PURPLE CAP) mRNA, LNP-S, PF, 30 MCG/0.3 ML DOSE 01/04/2021, 01/28/2021, 07/03/2021 Tdap (Adacel) 06/10/2024 Current Outpatient Medications Medication Sig Dispense Refill omeprazole (PRILOSEC) 40 [...] 2 (two) times daily. 21 tablet 0 No current facility-administered medications for this visit. No current outpatient medications on file prior to visit. No current facility-administered medications on file prior to visit. Review of patient's allergies indicates: No Known Allergies Objective: Filed Vitals: 06/10/24 0734 BP: 124/84 Pulse: 74 Resp: 16 Temp: 97.2 ??F (36.2 ??C) TempSrc: Skin SpO2: 100% Weight: 89.3 kg (196 lb 12.8 oz) Height: 1.702 m (5' 7 ) Physical Exam Constitutional: General: She is not in acute distress. Appearance: She is not ill-appearing, toxic-appearing or diaphoretic. HENT: Head: Normocephalic and atraumatic. Right Ear: Tympanic membrane, ear canal and external ear normal. There is impacted cerumen. Left Ear: Tympanic membrane, ear canal and external ear normal. There is impacted cerumen. Nose: Nose normal. No congestion. Mouth/Throat: Mouth: Mucous membranes are moist. Pharynx: Oropharynx is clear. No oropharyngeal exudate. Eyes: General: No scleral icterus. Right eye: No discharge. Left eye: No discharge. Conjunctiva/sclera: Conjunctivae normal. Pupils: Pupils are equal, round, and reactive to light. Neck: Thyroid: No thyromegaly. Vascular: No carotid bruit or JVD. Trachea: No tracheal deviation. Cardiovascular: Rate and Rhythm: Normal rate and regular rhythm. Pulses: Normal pulses. Heart sounds: Normal heart sounds. No murmur heard. No friction rub. No gallop. Pulmonary: Effort: Pulmonary effort is normal. No respiratory distress. Breath sounds: Normal breath sounds. No stridor. No wheezing or rales. Chest: Chest wall: No tenderness. Abdominal: General: Bowel sounds are normal. There is no distension. Palpations: Abdomen is soft. There is no mass. Tenderness: There is no abdominal tenderness. There is no right CVA tenderness, left CVA tenderness, guarding or rebound. Hernia: No hernia is present. Musculoskeletal: General: No swelling, tenderness, deformity or signs of injury. Normal range of motion. Cervical back: Normal range of motion and neck supple. No rigidity or tenderness. Right lower leg: No edema. Left lower leg: No edema. Lymphadenopathy: Cervical: No cervical adenopathy. Skin: General: Skin is warm. Coloration: Skin is not jaundiced or pale. Findings: No bruising, erythema or rash. Neurological: Mental Status: She is alert and oriented to person, place, and time. Cranial Nerves: No cranial nerve deficit. Sensory: No sensory deficit. Motor: No weakness or abnormal muscle tone. Coordination: Coordination normal. Gait: Gait is intact. Gait normal. Deep Tendon Reflexes: Reflexes are normal and symmetric. Reflexes normal. Psychiatric: Mood and Affect: Mood and affect normal. Behavior: Behavior normal. Thought Content: Thought content normal. Cognition and Memory: Memory normal. Judgment: Judgment normal. *Ear Cerumen Removal Date/Time: 06/10/2024 8:06 AM Performed by: Santa Ospina MD Authorized by: Santa Ospina MD Location details: right ear and left ear Patient tolerance: patient tolerated the procedure well with no immediate complications Comments: Impacted wax removed from both ears successfully. Procedure type: curette Assessment & Plan: Carmelina was seen today for physical and follow up. Diagnoses and all orders for this visit: Need for [id number]-nuzofyulw (Tdap) vaccine - [80690] Adacel (Tdap) Class 1 obesity due to excess calories with serious comorbidity and body mass index (BMI) of 30.0 to 30.9 in adult - Still not optimally controlled - -Pt has elevated weight with BMI Body mass index is 30.82 kg/m??., and will need to work hard on reducing carbohydrates and total calories. -You may use the free smart phone apps such as Flocasts to help track calories and try to [...] per week and 5 pounds per month. -Increase to topiramate (TOPAMAX) 50 MG Tab; Take 1 tablet (50 mg total) by mouth 2 (two) times daily. - Refill sent for phentermine HCl 15 MG Cap; Take 15 mg by mouth daily with breakfast. Gastroesophageal reflux disease without esophagitis - Controlled. Continue omeprazole (PRILOSEC) 40 MG capsule; Take 1 capsule (40 mg total) by mouth daily. Herpes -Controlled. Continue valACYclovir (VALTREX) 1 g tablet; Take 1 tablet (1,000 mg total) by mouth 2 (two) times daily. Need for immunization against influenza - [59519] Flu Vaccine, 0.5 mL, 6+ Months (Single Dose Syringe Fluarix, Fluzone, Flulaval, or Afluria) Annual physical exam -Discussed breast cancer screening and screen per patient preference and guidelines. Self-breast exams are a level D recommendation by the USPSTF. Follow up with primary care provider or gynecologistif any abnormalities are noted. Mammograms should continue annually. Reviewed with the patient BMI,blood pressure, diet, exercise, and encouraged healthy lifestyle choices. I recommended weight-bearing exercise to decrease risks of osteoporosis. Screened for substance use, risk factors for STIs, diet and exercise habits, and symptoms of depression. Colon screening starting at 45. Recommended preventive immunizations according to age. - URINALYSIS AUTO DIP - HEMOGLOBIN, GLYCOSYLATED; Future - TSH W/REFLEX; Future - LIPID PANEL; Future - COMPREHENSIVE METABOLIC PANEL; Future - CBC W/DIFF AUTOMATED; Future - VENIPUNC ARM DRAW - CBC W/DIFF AUTOMATED - COMPREHENSIVE METABOLIC PANEL - LIPID PANEL - TSH W/REFLEX - HEMOGLOBIN, GLYCOSYLATED General medical exam -Patient past medical, surgical, family history and social history updated. Allergies, immunizations and medications updated. Also did discuss healthy lifestyle including exercising, dietary changes and safe sexual practices as well as safe habits common to patient age group including wearing seat belt when transporting in a vehicle and limiting alcohol and avoiding smoking/second hand smoking. Patient will set up 51edut. Patient will fax over any remaining outside records that would be relevant to care provided. - URINALYSIS AUTO DIP - HEMOGLOBIN, GLYCOSYLATED; Future - TSH W/REFLEX; Future - LIPID PANEL; Future - COMPREHENSIVE METABOLIC PANEL; Future - CBC W/DIFF AUTOMATED; Future - VENIPUNC ARM DRAW - CBC W/DIFF AUTOMATED - COMPREHENSIVE METABOLIC PANEL - LIPID PANEL - TSH W/REFLEX - HEMOGLOBIN, GLYCOSYLATED Screening for diabetes mellitus - HEMOGLOBIN, GLYCOSYLATED; Future - HEMOGLOBIN, GLYCOSYLATED Screening for hyperlipidemia - LIPID PANEL; Future - LIPID PANEL Screening for hypothyroidism - TSH W/REFLEX; Future - TSH W/REFLEX Encounter for screening mammogram for malignant neoplasm of breast - MG SCREENING W CECIL ROLAND DIGI; Future - MG SCREENING W CECIL ASUNCION DIGI Bilateral impacted cerumen - REMOVE IMPACTED EAR WAX UNI Other orders - *Ear Cerumen Removal I personally spent a total of 50 minutes on the day of the encounter. This includes [id number]-dg-vvse and quz-brtl-hg-face time I provided on the day of the encounter & excludes time spent performing separately reportable services. DRAGON: This dictation was at least in part performed using Duplia and there may be some inherent flaws in this master [place] due to the nature of this program. MD Santa MARTINEZ MD Internal Medicine [facility]. RATORY ANALYST documented in this encounter Plan of Treatment Upcoming Encounters Date Type Department Care Team (Late st Contact Info) Description 09/12/2024 3:40 PM LABORATORY ANALYST Office Visit [facility] Multispecialty Care [place] [address] [address] [place] [address] Santa Ospina MD [address] [place] [address] [address] [place] [address] Scheduled Orders Name Type Priority Associated Diagnoses Orde r Schedule MG SCREENING W CECIL ASUNCION DIGI MAMMO Routine Encounter for screening mammogram for malignant neoplasm of breast Expected: 06/10/2024, Expires: 08/10/2025 REMOVE IMPACTED EAR WAX UNI Procedures Routine Bilateral impacted cerumen Ordered: 06/10/2024 documented as of this encounter Procedures Procedure Name Priority Date/Time Associated Diagnosis Comments TSH W/REFLEX Routine 06/10/2024 8:18 AM LABORATORY ANALYST Annual physical exam General medical exam Screening for hypothyroidism HEMOGLOBIN, GLYCOSYLATED Routine 06/10/2024 8:18 AM LABORATORY ANALYST Annual physical exam General medical exam Screening for diabetes mellitus COMPREHENSIVE METABOLIC PANEL Routine 06/10/2024 8:18 AM LABORATORY ANALYST Annual physical exam General medical exam LIPID PANEL Routine 06/10/2024 8:18 AM LABORATORY ANALYST Annual physical exam General medical exam Screening for hyperlipidemia CBC W/DIFF AUTOMATED Routine 06/10/2024 8:18 AM LABORATORY ANALYST Annual physical exam General medical exam REMOVE IMPACTED CERUMEN INSTRUMENTATION UNILAT Routine 06/10/2024 8:06 AM LABORATORY ANALYST Bilateral impacted cerumen COLLECTION VENOUS BLOOD VENIPUNCTURE Routine 06/10/2024 7:58 AM LABORATORY ANALYST Annual physical exam General medical exam URINALYSIS AUTO DIP Routine 06/10/2024 Annual physical exam General medical exam documented in this encounter Results * (ABNORMAL) CBC W/DIFF AUTOMATED (06/10/2024 8:18 AM LABORATORY ANALYST) [facility] WBC 5.57 4.00 - 10.80 x10'3/uL 06/10/2024 3:21 PM LABORATORY ANALYST [facility] RBC 4.53 4.10 - 5.40 x10'6/uL 06/10/2024 3:21 PM LABORATORY ANALYST [facility] HGB 14.5 12.0 - 16.0 G/DL 06/10/2024 3:[address] [facility] HCT 43.5 36.0 - 47.0 % 06/10/2024 3:[address] [facility] MCV 96.0 78.0 - 100.0 FL 06/10/2024 3:[address] [facility] MCH 32.0(H) 27.0 - 31.0 PG 06/10/2024 3:[address] [facility] MCHC 33.3 33.0 - 36.0 G/DL 06/10/2024 3:[address] [facility] RDW 12.6 11.5 - 14.5 % 06/10/2024 3:[address] [facility] PLT 282 150 - 350 x10'3/uL 06/10/2024 3:[address] [facility] MPV 11.0(H) 7.4 - 10.4 FL 06/10/2024 3:[address] [facility] DIFFERENTIAL TYPE AUTOMATED DIFFERENTIAL 06/10/2024 3:[address] [facility] NEUTROPHILS % 51.7 % 06/10/2024 3:[address] [facility] LYMPHOCYTES % 38.2 % 06/10/2024 3:[address] [facility] MONOCYTES % 6.5 % 06/10/2024 3:[address] [facility] EOSINOPHILS % 2.9 % 06/10/2024 3:[address] [facility] BASOPHILS % 0.7 % 06/10/2024 3:[address] [facility] IMMATURE GRANS % 0.0 % 06/10/2024 3:[address] [facility] ABS. NEUTROPHILS 2.88 1.60 - 8.30 x10'3/uL 06/10/2024 3:[address] [facility] ABS. LYMPHOCYTES 2.13 0.80 - 4.70 x10'3/uL 06/10/2024 3:[address] [facility] ABS. MONOCYTES 0.36 0.00 - 1.50 x10'3/uL 06/10/2024 3:[address] [facility] ABS. EOSINOPHILS 0.16 0.00 - 0.40 x10'3/uL 06/10/2024 3:[address] [facility] ABS. BASOPHILS 0.04 0.00 - 0.20 x10'3/uL 06/10/2024 3:[address] [facility] ABS. IMMATURE GRANULOCYTES 0.00 0.00 - 0.03 x10'3/uL 06/10/2024 3:[address] [facility] 06/10/2024 8:18 AM [facility] Santa Ospina MD LABORATORY Final Result -[facility] DARELL SPELTER [address] [place] [address], * (ABNORMAL) COMPREHENSIVE METABOLIC PANEL (06/10/2024 8:18 AM LABORATORY ANALYST) [facility] Signature SODIUM S/P/B 141 136 - 145 MMOL/L 06/10/2024 4:[address] [facility] POTASSIUM S/P/B 4.4 3.5 - 5.1 MMOL/L 06/10/2024 4:[address] [facility] CHLORIDE S/P/B 104 98 - 107 MMOL/L 06/10/2024 4:[address] [facility] CO2 29.5 21 - 32 MMOL/L 06/10/2024 4:[address] [facility] GLUCOSE 92 70 - 99 MG/DL 06/10/2024 4:[address] [facility] BUN 10 7 - 18 MG/DL 06/10/2024 4:12 PM LABORATORY ANALYST [facility] CREATININE S/P/B 0.89 0.55 - 1.02 MG/DL 06/10/2024 4:[address] [facility] CALCIUM S/P/B 9.3 8.4 - 10.5 MG/DL 06/10/2024 4:[address] [facility] BILIRUBIN TOTAL S/P/B 0.4 0.2 - 1.0 MG/DL 06/10/2024 4:[address] [facility] ALKALINE PHOSPHATASE S/P/B 90 41 - 108 U/L 06/10/2024 4:[address] [facility] AST 15 15 - 37 U/L 06/10/2024 4:[address] [facility] ALT 25 14 - 59 U/L 06/10/2024 4:[address] [facility] TOTAL PROTEIN S/P/B 7.8 6.4 - 8.2 G/DL 06/10/2024 4:12 PM LABORATORY ANALYST [facility] DARELL SPELTER ALBUMIN S/P/B 3.9 3.4 - 5.0 G/DL 06/10/2024 4:12 PM [facility]ST [facility] ANION GAP 7.5 5 - 15 MMOL/L 06/10/2024 4:12 PM LABORATORY ANALYST [facility] Comment:REFERENCE RANGE NOT ESTABLISHED OSMOLALITY (CALC) 291 MOSM/KG 024 4:12 PM LABORATORY ANALYST [facility] DARELL, SPELTER Comment:REFERENCE RANGE NOT ESTABLISHED GFR ESTIMATE 77(L) >90 ML/MIN/1. 73 M2 06/10/2024 4:12 PM LABORATORY ANALYST [facility] GFR NOTES GFR REFERENCE S: 06/10/2024 4:12 PM [facility] Comment: THE ESTIMATED GFR IS CALCULATED USING [...] FAILURE: <15 ml/min/1.73 m2 06/10/2024 8:18 AM LABORATORY ANALYST us Santa Ospina MD LABORATORY Final Result [facility] [address] [facility] [facility] [place] [address], * (ABNORMAL) LIPID PANEL (06/10/2024 8:18 AM LABORATORY ANALYST) CHOLESTEROL 211(H) <200 MG/DL 06/10/2024 4:12 PM LABORATORY ANALYST [facility] TRIGLYCERIDES 68 <150 MG/DL 06/10/2024 4:[address] [facility] HDL 61 >40 MG/DL 06/10/2024 4:[address] [facility] LDL-C 136(H) <100 MG/DL 06/10/2024 4:12 PM LABORATORY ANALYST [facility] VLDL CALCULATION 14 5 - 28 MG/DL 06/10/2024 4:12 PM LABORATORY ANALYST [facility] CHOL/HDL RATIO 3.5 0.0 - 4.0 06/10/2024 4:12 PM LABORATORY ANALYST [facility] LDL/HDL 2.2(H) 0.41 - 2.13 06/10/2024 4:12 PM LABORATORY ANALYST [facility] NON HDL CHOLESTEROL 150(H) <140 MG/DL 06/10/2024 4:12 PM LABORATORY ANALYST [facility] 06/10/2024 8:18 AM LABORATORY ANALYST us Santa Ospina MD LABORATORY Final Result [facility] [address] [place] [address], * TSH W/REFLEX (06/10/2024 8:18 AM LABORATORY ANALYST) TSH 2.228 0.358 - 3.740 uIU/ML 06/10/2024 4:12 PM LABORATORY ANALYST [facility] 06/10/2024 8:18 AM LABORATORY ANALYST us Santa Ospina MD LABORATORY Final Result [facility] [address] [place] [address], [place] [phone] * (ABNORMAL) HEMOGLOBIN, GLYCOSYLATED (06/10/2024 8:18 AM LABORATORY ANALYST) HGB A1C 5.6 4.5 - 6.2 % 06/10/2024 6:07 PM LABORATORY ANALYST [facility] ESTIMATED AVG GLUCOSE 114(H) 74 - 106 MG/DL 06/10/2024 6:07 PM LABORATORY ANALYST [facility] 06/10/2024 8:18 AM LABORATORY ANALYST Santa Ospina MD LABORATORY Final Result [facility] [address] [place] [address], * REMOVE IMPACTED CERUMEN INSTRUMENTATION UNILAT (06/10/2024 8:06 AM LABORATORY ANALYST) Narrative Santa Ospina MD - 06/10/2024 8:06 AM LABORATORY ANALYST Santa Ospina MD ? 06/10/2024 ??8:37 AM [...] COLOR (U) YELLOW YELLOW MG-[address], TERRIL TRANSPARENCY CLEAR CLEAR MG-[address], TERRIL GLUCOSE (U) NEGATIVE NEGATIVE MG/DL MG-[address], [place] BILIRUBIN (U) NEGATIVE NEGATIVE MG-[address], [place] KETONES MG/DL (U) NEGATIVE NEGATIVE MG/DL MG-[address], [place] SPECIFIC GRAVITY (U) 1.025 1.001 - 1.035 MG-[address], [place] BLOOD (U) NEGATIVE NEGATIVE MG-[address], [place] U PH 5.5 5.0 - 9.0 MG-[address], [place] PROTEIN (U) NEGATIVE NEGATIVE mg/dL MG-[address], [place] UROBILINOGEN 0.2 0.2 - 1.0 EU/dL = mg/dL MG-[address], [place] NITRITES NEGATIVE NEGATIVE MG/DL MG-[address], [place] LEUKOCYTES (U) 1+ (SMALL)(A) NEGATIVE MG-[address], [place] URINE SPECIMEN OBTAINED BY CLEAN CATCH PROCEDURE / Unknown 06/10/2024 Santa Ospina MD URINE ORDERABLES Final Result MG-[address], [facility] [address] [facility] [address] [place] [address], [place] [phone] documented in this encounter Visit Diagnoses Diagnosis Need for ghpuoddxvn-kazbyrl-zpyggxbfa (Tdap) vaccine- Primary Need for prophylactic vaccination with combined jvuruhosqf-hoouqyn-xgkalatjj (DTP) vaccine Class 1 obesity due to excess calories with serious comorbidity and body mass index (BMI) of 30.0 to 30.9 in adult Gastroesophageal reflux disease without esophagitis Esophageal reflux Herpes Herpes simplex without mention of complication Need for immunization against influenza Need for prophylactic vaccination and inoculation against influenza Annual physical exam Routine general medical examination at a health care facility General medical exam Unspecified general medical examination Screening for diabetes mellitus Screening for hyperlipidemia Screening for lipoid disorders Screening for hypothyroidism Screening for thyroid disorder Encounter for screening mammogram for malignant neoplasm of breast Other screening mammogram Bilateral impacted cerumen Impacted cerumen documented in this encounter Additional Health Concerns Assessment Noted Time PHQ-9 Depression Total Score: 2 06/10/20 24 8:27 AM LABORATORY ANALYST documented as of this encounter Care Teams Human Resources Intern Relationship Specialty Start Date End Date Santa Ospina MD [address] [facility] [address] [place] [address] PCP - General INTERNAL MEDICINE 12/22/22 documented as of this encounter
--- OUTSIDE RECORDS SUMMARY | 2024-08-08 20:45 | XMS_ITS | Encounter Summary ---
Author Organization [facility] Address [address] [place] [address]. [place], [place] [id number] [place] [id number] Care Team Providers Care Maintenance Supervisor Electrical Name Role Phone Santa Ospina MD Primary Care Provider [phone] Reason for Visit * Reason Comments Weight Problem Menopause Encounter Details Date Type Department Care Team (Latest Contact Info) Description 09/09/2023 10:00 AM SPINNING MACHINE TENDER Telemedicine [facility] Multispecialty Care - [place] [address] [address] [place], [place] [id number] Santa Ospina MD [address] [place] [address] [address] [place], [place] [id number] Weight Problem; Menopause Social History Tobacco Use Types Packs/Day Years Used Date Smoking Tobacco: Former Pipe Smokeless Tobacco: Former Snuff Quit: 06/2000 Tobacco Cessation:Counseling Given: Yes Comments:Counseled by Dr. Ospina. PHQ-2 Answer Date Recorded Patient Health Questionnaire-2 Score 0 09/09/2023 Comments Unknown Sex and Gender Information Value Date Recorded Sex Assigned at Not on file Legal Sex Female 2:57 PM CDT Gender Identity Not on file Sexual Orientation Not on file documented as of this encounter Last Filed Vital Signs Vital Sign Reading Time Taken Comments Blood Pressure - - Pulse - - Temperature - - Respiratory Rate - - Oxygen Saturation - - Inhaled Oxygen Concentration - - Weight 91.2 kg (201 lb) 09/09/2023 9:53 AM SPINNING MACHINE TENDER Height 167.6 cm (5' 6 ) 09/09/2023 9:53 AM SPINNING MACHINE TENDER Body Mass Index 32.44 09/09/2023 9:53 AM SPINNING MACHINE TENDER documented in this encounter Patient Instructions * Patient Instructions* Santa Ospina MD - 09/09/2023 10:00 AM SPINNING MACHINE TENDER Your next appointment will be on for 11/11/2023 at 10:40 AM for follow-up for your weight medication. Please follow-up on 09/11/2023 for your blood draw. You do not have to fast. Please follow-up with your ARTIST SCIENTIFIC to discuss hormone replacement therapy. NING MACHINE TENDER NING MACHINE TENDER NING MACHINE TENDER documented in this encounter Progress Notes * Santa Ospina MD - 09/09/2023 10:00 AM CSTSummary: Acute visit notes TELE- VISIT NOTES Reason for Visit: Weight Problem and Menopause History of Present Illness: Carmelina Tomlin is a 53-year-old female here for telemedicine visit to discuss concerns about menopausal symptoms that have been ongoing for couple of years now. Currently, patient not on any medications to help with her symptoms. She is wanting to explore a private clinic that prescribes hormone replacement pellets. I did discuss with patient about first following up with her ARTIST SCIENTIFIC to discuss her options prior to establishing with a private clinic. Currently also notices some mood swings. Feels achy all over as a result. Denies any concerns for depression oranxiety. Patient also concerned about her weight. She previously had been on 37.5 mg daily of phentermine prescribed by weight loss clinic and was feeling too jittery hence has discontinued. Currently active at baseline but struggling to lose weight. Her weight is currently 199 at home and plans on losing about 25 pounds. No chest pain or shortness of breath. No palpitations. I introduced and identified myself, received verbal consent from the patient to proceed with this video visit and made the patient aware that the same confidentiality and health information administrator practices apply. The patient joined the video visit from work . I completed the virtual visit from Office. The following clinical staff helped with this visit MA: Jerrica W . Total Time Spent in Minutes: 30 minutes ROS: Review of Systems Constitutional: Negative for activity [...] in stool, constipation, diarrhea, nausea and vomiting. Endocrine: Hot flashes, mood swings, generalized aches and pains, vaginal dryness. Genitourinary: Negative for decreased urine volume, difficulty urinating, dysuria, flank pain, frequency, hematuria and urgency. Musculoskeletal: Negative for arthralgias, back pain, gait problem, joint swelling and myalgias. Skin: Negative for pallor, rash and wound. Neurological: Negative for dizziness, tremors, syncope, weakness, light- headedness and headaches. Hematological: Negative for adenopathy. Does not bruise/bleed easily. Psychiatric/Behavioral: Negative for agitation, behavioral problems, confusion, decreased concentration, hallucinations and sleep disturbance. The patient is not hyperactive. Medications: Current Outpatient Medications: omeprazole (PRILOSEC) 40 [...] times daily., Disp: 21 tablet, Rfl: 0 Review of patient's allergies indicates: Not on File History reviewed. No pertinent past medical history. History reviewed. No pertinent surgical history. Social History Socioeconomic History Marital status: Tobacco Use Smoking status: Former Types: Pipe Smokeless tobacco: Former Types: Snuff Quit date: 06/2000 Tobacco comments: Counseled by Dr. Ospina. No family history on file. No family status information on file. Physical examination limited as visit done virtually. Diagnoses/Impression: 1. Menopause ESTROGENS, FRACTN, SERUM PROLACTIN LH, LUTEINIZING HORMONE FSH, FOLLICLE STIM HORMONE VENIPUNC ARM DRAW 2. Class 1 obesity due to excess calories with serious comorbidity and body mass index (BMI) of 32.0 to 32.9 in adult topiramate (TOPAMAX) 50 MG Tab Phentermine HCl 15 MG Cap 1. Menopause - ESTROGENS, FRACTN, SERUM; Future - PROLACTIN; Future - LH, LUTEINIZING HORMONE; Future - FSH, FOLLICLE STIM HORMONE; Future - VENIPUNC ARM DRAW 2. Class 1 obesity due to excess calories with serious comorbidity and body mass index (BMI) of 32.0 to 32.9 in adult - topiramate (TOPAMAX) 50 MG Tab; Take 25 mg daily for the first 2 weeks then increase to 50 mg daily. Dispense: 90 tablet; Refill: 0 - Phentermine HCl 15 MG Cap; Take 15 mg by mouth daily with breakfast. Dispense: 60 capsule; Refill: 0 -This will be her first refill for phentermine. Close follow-up in 8 weeks.. --Pt has elevated weight with BMI Body mass index is 32.44 kg/m??., and will need to work hard on reducing carbohydrates and total calories. -You may use the free smart phone apps such as Superprotonic to help track calories and try to [...] per week and 5 pounds per month. Orders Placed This Encounter VENIPUNC ARM DRAW ESTROGENS, FRACTN, SERUM PROLACTIN LH, LUTEINIZING HORMONE FSH, FOLLICLE STIM HORMONE topiramate (TOPAMAX) 50 MG Tab Phentermine HCl 15 MG Cap I personally spent a total of 30 minutes on the day of the encounter. This includes sgtw-ww-nqti and gkl-unbg-hl-face time I provided on the day of the encounter & excludes time spent performing separately reportable services. SANTA OSPINA MD Referring Provider: No ref. provider found PCP: SANTA OSPINA MD NING MACHINE TENDER documented in this encounter Plan of Treatment Upcoming Encounters Date Type Department Care Team (Late st Contact Info) Description 09/12/2024 3:40 PM SPINNING MACHINE TENDER Office Visit [facility] Multispecialty Care - [address] [place] [address] [place] [address] [place] [address] [address] [place], [place] [id number] documented as of this encounter Procedures Procedure Name Priority Date/Time Associated Diagnosis Comments COLLECTION VENOUS BLOOD VENIPUNCTURE Routine 09/09/2023 10:50 AM SPINNING MACHINE TENDER Menopause documented in this encounter Results * FSH, FOLLICLE STIM HORMONE (11/11/2023 11:50 AM CDT) FSH 58.0 MIU/ML 11/12/2023 2:22 PM CDT [facility] Comment: FOLLIC PHASE: 2.3 TO [...] CDT Santa Ospina MD LABORATORY Final Result [facility] [address] [place] [address], [id number] * LH, LUTEINIZING HORMONE (11/11/2023 11:50 AM CDT) Luteinizing Hormone 27.1 MIU/ML 11/11 2:22 PM CDT [facility] Comment: FOLLIC PHASE: 1.9 TO 12.8 mIU/mL MID CYCLE: 22.8 TO 76.1 mIU/mL LUTEAL PHASE: 0.6 TO 13.5 mIU/mL POST MENOPAUSAL W/O HRT: 8.6 TO 61.8 mIU/mL ASSAY PERFORMED BY CHEMILUMINESCENCE METHODOLOGY USING SIEMENS So Protect Me [employer]. PATIENT RESULTS DETERMINED BY ASSAYS USING DIFFERENT MANUFACTURERS FOR METHODS MAY NOT BE COMPARABLE. 11/11/2023 11:5 0 AM CDT Santa Ospina MD LABORATORY Final Result Performing Organization Address [facility] de Phone Number [facility] [address] [place] [address], [id number] * PROLACTIN (11/11/2023 11:50 AM CDT) PROLACTIN 4.3 2.2 - 30.3 NG/ML 11/12/2023 2:22 PM CDT [facility] Comment: ASSAY PERFORMED BY CHEMILUMINESCENCE METHODOLOGY USING SIEMENS So Protect Me [employer]. PATIENT RESULTS DETERMINED BY ASSAYS USING DIFFERENT MANUFACTURERS FOR METHODS MAY NOT BE COMPARABLE. 11/11/2023 11:5 0 AM CDT Santa Ospina MD LABORATORY Final Result Performing Organization Address [facility] de Phone Number [facility] [address] [place] [address], [place] [phone] documented in this encounter Visit Diagnoses Diagnosis Menopause- Primary Asymptomatic postmenopausal status (age-related) (natural) Class 1 obesity due to excess calories with serious comorbidity and body mass index (BMI) of 32.0 to 32.9 in adult documented in this encounter Additional Health Concerns Assessment Noted Time PHQ-9 Depression Total Score: 5 09/09/19 24 9:54 AM SPINNING MACHINE TENDER documented as of this encounter Care Teams Maintenance Supervisor Electrical Relationship Specialty Start Date End Date Santa Ospina MD [address] [facility] [address] [place] [address] PCP - General INTERNAL MEDICINE 12/22/22 documented as of this encounter
--- OUTSIDE RECORDS SUMMARY | 2024-08-08 20:45 | XMS_ITS | Encounter Summary ---
Author Organization [facility] Address [address] [place] [address]. [place] [address] [place] [address] Care Team Providers Care Hangersmith Name Role Phone Santa Ospina MD Primary Care Provider [phone] Reason for Visit * Auth/Cert (Routine) Specialty Diagnoses / Procedures Referred By Contac t Referred To Contact Diagnoses GERD (gastroesophageal reflux disease) Screening for colon cancer screening colonoscopy, GERD Procedures UPPER GI ENDOSCOPY,BIOPSY COLONOSCOPY,DIAGNOSTIC EGD WITH BIOPSY COLONOSCOPY Lidia Dotson MD [address] [address] Phone: tel: fax: Referral ID Status Reason Start Date Expiration Date Visits Re quested Visits Authorized [id number] 1 1 Encounter Details Date Type Department Care Team (Latest Contact Info) Description 11/05/2023 1:06 PM CDT - 11/05/2023 3:25 PM T Hospital Encounter [facility] [place] [address] Lidia Dotson MD [address] [phone] Discharge Disposition: Home or Self Care (Routine [...] Sign Reading Time Taken Comments Blood Pressure 130/78 11/05/2023 2:40 PM CDT Pulse 90 11/05/2023 2:30 PM CDT Temperature 36.3 ??C (97.4 ??F) 11/05/2023 2:22 PM CD T Respiratory Rate 18 11/05/2023 2:22 PM CDT Oxygen Saturation 100% 11/05/2023 2:40 PM CDT Inhaled Oxygen Concentration - - Weight 81.6 kg (180 lb) 11/04/2023 10:05 AM CDT Height - - Body Mass Index 29.05 10/07/2023 1:18 PM SOLIDWORKS DRAFTER documented in this encounter Discharge Instructions * Attachments The following attachments cannot be sent through Care Everywhere. * Upper GI Endoscopy Discharge Instructions (Citizen Of [place]) * Colonoscopy Discharge Instructions (Citizen [place]) * General Anesthesia Discharge Instructions (Citizen Of [place]) documented in this encounter Medications at Time of Discharge omeprazole (PRILOSEC) 40 MG capsuleIndication s:Gastroesophagea l reflux disease without esophagitis Take 1 capsule (40 mg total) by mouth daily. 90 capsule 06/05/2023 4 Phentermine HCl 15 MG CapIndications:Cl ass 1 obesity due to excess calories with serious comorbidity and body mass index (BMI) of 32.0 to 32.9 in adult Take 15 mg by mouth daily with breakfast. 60 capsule 09/09/2023 4 topiramate (TOPAMAX) 50 MG TabIndications:Cl ass [...] 2 (two) times daily. 21 tablet 06/05/2023 documented as of this encounter Progress Notes * Lidia Dotson MD - 11/05/2023 3:25 PM CDT Your stomach biopsies shows mild gastritis, nothing serious. Colon polyp is benign but precanceroustype. Repeat colonoscopy in 5 years. documented in this encounter H&P Notes * Lidia Dotson MD - 11/05/2023 1:58 PM CDT GASTROENTEROLOGY H&P 11/05/2023 1:58 PM Reason for Consult: Abdominal pain bloating and screening colonoscopy History of Present Illness: Carmelina Wall is a 53-year-old abdominal pain bloating and screening colonoscopy. Review of systems: General: no fever, chills, malaise, fatigue, weight loss or gain. HEENT: no acute changes in vision or hearing Respiratory: no shortness of breath, cough, sputum production, hemoptysis Cardiovascular: no chest pain, palpitations, orthopnea Gastrointestinal: as per HPI Genitourinary: no dysuria, hematuria, incontinence Musculoskeletal: no extremity edema, myalgia. Neuro: no dizziness, headache, seizures Hematology: no easy bruising, bleeding Skin: no new skin rashes or lesions. Patient Active Problem List Diagnosis GERD (gastroesophageal reflux disease) Past Medical History: Diagnosis Date GERD (gastroesophageal reflux disease) Past Surgical History: Procedure Laterality Date HERNIA REPAIR Family History Problem Relation Name Age of Onset Diabetes Mother Diabetes Father Social History Socioeconomic History Marital status: Spouse name: Not on file Number of children: Not on file Years of education: Not on file Highest education level: Not on file Occupational History Not on file Tobacco Use Smoking status: Former Types: Cigarettes Quit date: 1980 Years since quittin.2 Smokeless tobacco: Not on file Tobacco comments: Counseled by Dr. Ospina. Vaping Use Vaping Use: Not on file Substance and Sexual Activity Alcohol use: Yes Comment: occas. Drug use: Never Sexual activity: Not on file Other Topics Concern Not on file Social History Narrative Not on file Social Determinants of Health Financial Resource Strain: Not on file Food Insecurity: Not on file Transportation Needs: Not on file Physical Activity: Not on file Stress: Not on file Social Connections: Not on file Intimate Partner Violence: Not on file Housing Stability: Not on file No Known Allergies PHYSICAL EXAM: Filed Vitals: 11/04/23 1005 11/05/23 1347 BP: 127/85 Pulse: 86 Resp: 18 Temp: 96.9 ??F (36.1 ??C) TempSrc: Temporal SpO2: 99% Weight: 81.6 kg (180 lb) Wt Readings from Last 3 Encounters: 11/04/23 81.6 kg (180 lb) 10/07/23 89.8 kg (198 lb) 09/09/23 91.2 kg (201 lb) General: pleasant, no distress Lungs: clear to auscultation bilaterally Heart: regular rate and rhythm, normal s1-s2 Abdomen: soft, non-tender, non-distended, bowel sounds normal, no palpable masses Neuro: Alert, oriented, cooperative Labs: No results for input(s): WBC , HGB , MCV , PLT , INR in the last 168 hours. No results for input(s): NA , K , CL , CO2 , BUN in the last 168 hours. Invalid input(s): CREATININE No results for input(s): AST , ALT , ALB in the last 168 hours. Invalid input(s): ALKPHOS , TBILI ? Assessment and Plan: Abdominal pain bloating and screening colonoscopy. Plan, EGD and colonoscopy. The procedural risks, benefits, alternatives were discussed fully with the patient, including the risks of complications of bleeding, infection, bowel injury or perforation, anesthesia related risks but not limited to the above. Post complication remedies could include hospitalization, antibiotics,surgery or even the remote possibility of . The patient verbalized understanding of the risks and wishes to proceed. Thank you for this consult. Please do not hesitate to contact us with further questions. LIDIA DOTSON MD Voice recognition software utilized documented in this encounter OR Notes * Op Note - Lidia Dotson MD - 11/05/2023 2:19 PM CDT [facility] OpNote EGD, GASTRIC BIOPSY TO RULE OUT H.PLYORIC WITH COLD FORCEPS, COLONOSCOPY, ASCENDING COLON POLYP REMOVED WITH COLD SNARE Procedure Note Carmelina Wall 11/05/2023 1400 Procedure(s) (LRB): EGD, GASTRIC BIOPSY TO RULE OUT H.PLYORIC WITH COLD FORCEPS (N/A) COLONOSCOPY, ASCENDING COLON POLYP REMOVED WITH COLD SNARE (N/A) Surgeon(s): Lidia Dotson MD Staff: GI Nurse: Marika Westbrook RN consumer banker: Светлана Covington [facility] Anesthesia: Local Anesthesiologist: Deonte Armstrong MD NIPPLE MACHINE OPERATOR: Sravani Kaplan CRNA Pre-Op Diagnosis: screening colonoscopy, GERD Post-Op Diagnosis: EGD biopsy for H. pylori. Ascending colon polyp removed. Procedure Description: Informed consent was obtained earlier. Patient was brought to the OR and placed in supine lateral decubitus position and sedated under MAC anesthesia. EGD with biopsy. GIF 190 gastroscope was lubricated inserted into the hypopharynx advanced directly. Upper middle distal esophagus looked normal. GE junction was normal at 39 cm. Stomach distended well. Retroflexed views of the cardia fundus angularis revealed no abnormalities. Antrum was negative. Biopsies were taken for H. pylori. First and second parts of duodenum looked normal and scope withdrawn. Colonoscopy with cold snare. PCF 190 colonoscope was lubricated inserted into the rectum and advanced to the cecum. Bowel was excellent. Cecum was identified by the ileocecal valve and the appendiceal orifice looks normal. Ascending colon looked normal. There was a small polyp near the hepatic flexure that was cold snared removed and recovered. Transverse colon descending colon sigmoid colon and rectum looked normal. Rectum was examined in the forward views. Findings: EGD with antral biopsies for H. pylori. Colonoscopy with small polyp removed by snare. Excellent bowel prep. Plan: Check all biopsies. If H. pylori positive recommend triple therapy. Repeat colonoscopy in 5 years. Complications: None Estimated Blood Loss: None Specimens: Order Name Source Comment Collection Info Order Time TEST URINE URINE, VOIDED test (urine or blood) on all females between menarche and menopause on the day of procedure unless any of the following: -D&C for miscarriage -Patientis -Tested in past 72 hrs (result on chart) - If patient states has history of hysterectomy and is documented in patient chart - Attending provider waives the test and documents this rationale pre-procedure 11/05/2023 1:44 PM Release to patient System release PATHOLOGY GASTRIC BIOPSY Collected By: Lidia Dotson MD 11/05/2023 2:19 PM Release to patient System release Voice recognition software utilized. LIDIA DOTSON MD Date: 11/05/2023 Time: 2:19 PM Voice recognition software utilized. documented in this encounter Plan of Treatment Upcoming Encounters Date Type Department Care Team (Late st Contact Info) Description 09/12/2024 3:40 PM SOLIDWORKS DRAFTER Office Visit [facility] Multispecialty Care - [place] [address] [address] [place] [address] [place] [address] [place] [address] [address] [place] [address] documented as of this encounter Procedures Procedure Name Priority Date/Time Associated Diagnosis Comments COLSC FLX W/RMVL OF TUMOR POLYP LESION SNARE TQ 11/05/2023 1:53 PM CDT GERD (gastroesophageal reflux disease) Screening for colon cancer UPPER GI ENDOSCOPY,BIOPSY 11/05/2023 1:53 PM CDT GERD (gastroesophageal reflux disease) Screening for colon cancer PATHOLOGY Routine 11/05/2023 12:00 AM CDT documented in this encounter Results * Pathology (11/05/2023 12:00 AM CDT) PATHOLOGY [facility] ? Department of Laboratory Medicine ?[address] ?[place] [address] ? , extension [phone] ? Pathology Report ? Surgical Pathology Report Name: CARMELINA CLARK ?Specimen #: [id number] Age: 9 1970 (Age: 53) ?Location: [facility] Sex: F ?Procedure Date: 11/05/2023 Hospital #: [id number] ?Date Received: 11/06/2023 Date Reported: 11/10/2023 Provider: LIDIA DOTSON MD Source: A: Gastric biopsies B: Colon, ascending, polyp Clinical History: Screening colonoscopy. ??GERD. ?? Postoperative Diagnosis: Rule out H. pylori. Gross Description: Received in two parts: A) Received in formalin, labeled with a patient label and as gastric biopsy are two pieces of smart tissue, 0.2 and 0.3 cm. ??The specimen is entirely submitted in cassette A1. B) Received in formalin, labeled with a patient label and as ascending colon is a 0.7 cm piece of irregular smart tissue. ??The specimen is bisected and entirely submitted in cassette B1. ? FINAL DIAGNOSIS: A) STOMACH, BIOPSY: ? - MILD CHRONIC GASTRITIS. ? - NO HELICOBACTER PYLORI BY H&E. B) COLON, ASCENDING, BIOPSY: ? - TUBULAR ADENOMA. Electronically Signed Out ? FAREED BEDOYA MD [facility] TISSUE GASTRIC BIOPSY SPECIMEN / Unknown 11/05/2023 2:04 PM CDT Tissue specimen (specimen) COLON STRUCTURE / Unknown 11/05/2023 2:12 PM CDT Lidia Dotson MD PATHOLOGY/CYTOLOGY ORDERABLES Fi nal Result [facility] [address] [place] [address], [phone] documented in this encounter Visit Diagnoses Diagnosis GERD (gastroesophageal reflux disease) Esophageal reflux documented in this encounter Admitting Diagnoses Diagnosis GERD (gastroesophageal reflux disease) Esophageal reflux Screening for colon cancer Special screening for malignant neoplasms, colon documented in this encounter Administered Medications Inactive Administered Medications - up to 3 most recent administrations Medication Order MAR Action Action Date Dose Rate Site lactated ringers infusion at 10 mL/hr, Intravenous, Continuous, Starting on Yelitza 11/05/23 at 1400, Until Yelitza 11/05/23 at 1736, Infuse at TKO rate, Pre-Op New Bag 11/05/2023 1:52 PM CDT 50 mL/hr ondansetron (ZOFRAN) injection 4 mg 4 mg, Intravenous, Once as needed, Nausea, Vomiting, 1 dose, Starting on Yelitza 11/05/23 at 1430, Until Yelitza 11/05/23 at 1736, Administer slowly over 3-4 minutes. If more than one antiemetic is ordered, use in this order: ondansetron, diphenhydramine, metoclopramide, haloperidol, promethazine. If nausea / vomiting still not controlled, move to next ordered medication., PACU documented in this encounter Active and Recently Administered Medications Times are shown in CDT. Scheduled Medication Order 11/03/2023 11/04/2023 11/05/2023 simethicone (MYLICON) 40 MG/0.6ML suspension 40 mg 40 mg, Oral, Once, 1 dose, On Yelitza 11/05/23 at 1500 1500 (Canceled Entry - Provider: Automatic Discharge Provider - Comment: Automatically canceled at discontinue of medication order) Continuous Medication Order 11/03/2023 11/04/2023 11/05/2023 lactated ringers infusion at 10 mL/hr, Intravenous, Continuous, Starting on Yelitza 11/05/23 at 1400, Until Yelitza 11/05/23 at 1736, Infuse at TKO rate, Pre-Op 1352 (New Bag - Prov ider: Sravani Kaplan CRNA)1418 (Anesthesia Volume Adjustment - Provider: Sravani Kaplan CRNA) PRN Medication Order 11/03/2023 11/04/2023 11/05/2023 ondansetron (ZOFRAN) injection 4 mg 4 mg, Intravenous, Once as needed, Nausea, Vomiting, 1 dose, Starting on Yelitza 11/05/23 at 1430, Until Yelitza 11/05/23 at 1736, Administer slowly over 3-4 minutes. If more than one antiemetic is ordered, use in this order: ondansetron, diphenhydramine, metoclopramide, haloperidol, promethazine. If nausea / vomiting still not controlled, move to next ordered medication., PACU documented in this encounter Additional Health Concerns Assessment Noted Time PHQ-9 Depression Total Score: 0 10/07/19 24 1:17 PM SOLIDWORKS DRAFTER documented as of this encounter Care Teams Hangersmith Relationship Specialty Start Date End Date Santa Ospina MD [address] [address] PCP - General INTERNAL MEDICINE 12/22/22 documented as of this encounter
--- OUTSIDE RECORDS SUMMARY | 2024-08-08 20:45 | XMS_ITS | Encounter Summary ---
Author Organization [facility] Address [address] [place] [address]. [place], [place] [address] [place] [address] Care Team Providers Care Building Superintendent Name Role Phone Santa Ospina MD Primary Care Provider Reason for Visit * Reason Onset Date Comments Prior Authorization 10/07/2023 Colonoscopy- [id number] Encounter Details Date Type Department Care Team (Late st Contact Info) Description 10/07/[address] [facility] Mult[facility]pecialty Care - [facility] 3 [facility] [address] [place] [id number] Lidia Dotson MD 3 [facility] [address] [place], [place] [address] Prior Authorization (Colonoscopy-[id number]- [id number]) Social History Tobacco Use Types Packs/Day Years [...] as of this encounter Progress Notes * Jillian Rasmussen MA - 10/08/2023 10:31 AM CST Images from the original note were not included. CARMELINA MALDONADO Patient Date of 1970 Gender NA Transaction Type Outpatient Authorization Organization [facility], [facility] Payer AETNA (COMMERCIAL & MEDICARE) Update Void Add Attachments ?? Attachment Added Successfully Certificate Information Certification Number [id number] Status CERTIFIED IN TOTAL Service Information Service Type - Place of Service 22 - [facility] Diagnosis Code 1 K219 - Gastro-esophageal reflux disease without esophagitis Procedure Code 1 (CPT/HCPCS) 53685 - DIAGNOSTIC COLONOSCOPY Quantity 1 Units Procedure From - To Date 2023-10-07 - 2024-04-08 Status CERTIFIED IN TOTAL Procedure Code 2 (CPT/HCPCS) 40868 - EGD DIAGNOSTIC BRUSH WASH Quantity 1 Units Procedure From - To Date 2023-10-07 - 2024-04-08 Status CERTIFIED IN TOTAL Procedure Codes Certification Number [id number] Status CERTIFIED IN TOTAL Procedure Code 1 71201 - DIAGNOSTIC COLONOSCOPY Qualifier Code CPT/HCPCS Quantity 1 Units Start Date - End Date 2023-10-07 - 2024-04-08 Procedure Code Quantity 1 Procedure Code Quantity Type Units Certification Number [id number] Status CERTIFIED IN TOTAL Procedure Code 2 82573 - EGD DIAGNOSTIC BRUSH WASH Qualifier Code CPT/HCPCS Quantity 1 Units Start Date - End Date 2023-10-07 - 2024-04-08 Procedure Code Quantity 1 Procedure Code Quantity Type Units Requesting Provider Name LIDIA DOTSON Provider Role Provider Contact Name JILLIAN RASMUSSEN Rendering Providers Provider 1 Name THERESA LIDIA Provider Role Attending Provider 2 Name [facility] Provider Role Facility Health Plan Digital Correspondence(s) As we move forward in digitalizing Authorization decision correspondence, you may receive duplicateor additional paper correspondence related to the Authorization via [employer]. We are working to consolidate Authorization provider correspondence to one provider view. Until that is complete, please disregard the ???address to?? field. Attachment 1 File Name Standard Medical Necessity/ Admin Approval Document Id [id number] Recipient Name(s) [employer] * Jillian Rasmussen MA - 10/07/2023 3:49 PM CST Images from the original note were not included. Transaction ID: [id number] Customer ID: [id number] Transaction Date: 2023-10-07 CARMELINA MALDONADO Patient Date of 1970 Gender Female Eligibility Status Active Coverage Group Number [id number] Plan / Coverage Date 2020-09-26 Transaction Type Outpatient Authorization Organization [facility] Payer AETNA (COMMERCIAL & MEDICARE) Print Save New Template Certificate Information Reference Number [id number] Status PENDED Review Reason 1 Requires Medical Review Message REVIEW RESPONSE MESSAGE FOR ALL SERVICES BELOW THERE MAY BE REFERRAL(S) TO OTHER SERVICE PARTNERS. FOR SERVICES IN PENDED STATUS ADDITIONAL INFORMATION MAY BE NEEDED Member Information Patient Name CARMELINA MALDONADO Patient Date of 1970 Patient Gender Female Relationship to Subscriber Self Subscriber Name CARMELINA MALDONADO Requesting Provider Name THERESA LIDIA Provider Role Provider Contact Name JILLIAN RASMUSSEN Service Information Service Type - Place of Service [facility] - [facility] Diagnosis Code 1 K219 - Gastro-esophageal reflux disease without esophagitis Diagnosis Code 2 Z1211 - Encounter for screening for malignant neoplasm of colon Procedure Code 1 (CPT/HCPCS) 46954 - DIAGNOSTIC COLONOSCOPY Quantity 1 Units Procedure From - To Date 2023-11-05 Status PENDED Status Reason Requires Medical Review Procedure Code 2 (CPT/HCPCS) 44190 - EGD DIAGNOSTIC BRUSH WASH Quantity 1 Units Procedure From - To Date 2023-11-05 Status PENDED Status Reason Requires Medical Review Rendering Provider/Facility Provider 1 Name LIDIA DOTSON Provider Role Attending Provider 2 Name [facility] Provider Role Facility [employer] documented in this encounter Plan of Treatment Upcoming Encounters Date Type Department Care Team (Late st Contact Info) Description 09/12/2024 3:40 PM CONCRETE M[employer]ING PLANT LABORER Office Visit [facility] Multispecialty Care - [place] [address] [address] [place] [address] Santa Ospina MD [address] [place] [address] documented as of this encounter Visit Diagnoses Not on filedocumented in this encounter Additional Health Concerns Assessment Noted Time PHQ-9 Depression Total Score: 0 10/07/19 24 1:17 PM CONCRETE M[employer]ANT LABORER documented as of this encounter Care Teams Building Superintendent Relationship Specialty Start Date End Date Santa Ospina MD [address] [place] [address] PCP - General INTERNAL MEDICINE 12/22/22 documented as of this encounter
--- OUTSIDE RECORDS SUMMARY | 2024-08-08 20:45 | XMS_ITS | Encounter Summary ---
Author Organization [facility] Address [address] [place] [address]. [place] [address] [place] [address] Care Team Providers Care Automotive Tire Testing Supervisor Name Role Phone Santa Ospina MD Primary Care Provider [phone] Reason for Referral * Surgical (Routine) - New Request Specialty Diagnoses / Procedures Referred By Contshanna rodriguez Referred To Contact Diagnoses GERD (gastroesophageal reflux disease) Screening for colon cancer Procedures Case request operating room: EGD with biopsy, COLONOSCOPY Kong Dotson MD [address] [place] [address] [place] [address] Phone: tel: fax: Referral ID Status Reason Start Date Expiration Date V isits Requested Visits Authorized [id number] New Request 10/07/2023 10/06/2024 1 1 PATIAL IMAGERY INTELLIGENCE ANALYST Encounter Details Date Type Department Care Team (Late st Contact Info) Description 10/07/2023 Orders Only [facility] Multispecialty Care - [address] [place] [address] Kong Dotson MD [address] [place] [address] [address] [place] [address] Social History Tobacco Use Types Packs/Day Years [...] st Contact Info) Description 09/12/2024 3:40 PM GEOSPATIAL IMAGERY INTELLIGENCE ANALYST Office Visit [facility] Multispecialty [place] [address] [address] [place] [address] Santa Ospina MD [address] [place] [address] Scheduled Orders Name Type Priority Associated Diagnoses Orde r Schedule Case request operating room: EGD with biopsy, COLONOSCOPY Case Request Routine GERD (gastroesophageal reflux disease) Screening for colon cancer Ordered: 10/07/2023 documented as of this encounter Visit Diagnoses Diagnosis GERD (gastroesophageal reflux disease)- Primary Esophageal reflux Screening for colon cancer Special screening for malignant neoplasms, colon documented in this encounter Additional Health Concerns Assessment Noted Time PHQ-9 Depression Total Score: 0 10/07/19 24 1:17 PM GEOSPATIAL IMAGERY INTELLIGENCE ANALYST documented as of this encounter Care Teams Autom[employer] T[employer] Testing Supervisor Relationship Specialty Start Date End Date Santa Ospina MD [address] [place] [address] PCP - General INTERNAL MEDICINE 12/22/22 documented as of this encounter
--- OUTSIDE RECORDS SUMMARY | 2024-08-08 20:45 | XMS_ITS | Encounter Summary ---
Author Organization [facility] Address [address] [place] [address]. [place], [place] [address] [place] [address] Care Team Providers Care Bench Repair Technician Name Role Phone Santa Ospina MD Primary Care Provider Encounter Details Date Type Department Care Team (Latest Contact Info) Description 05/31/2024 Travel Social History Tobacco Use Types Packs/Day [...] st Contact Info) Description 09/12/2024 3:40 PM PORCELAIN TECHNICIAN Office Visit [facility] Multispecialty Care - [address] [place] [address] Santa Ospina MD [address] [place] [address] [address] [place], [place] [id number] documented as of this encounter Visit Diagnoses Not on filedocumented in this encounter Additional Health Concerns Assessment Noted Time PHQ-9 Depression Total Score: 0 10/07/19 24 1:17 PM PORCELAIN TECHNICIAN documented as of this encounter Care Teams Bench Repair Technician Relationship Specialty Start Date End Date Santa Ospina MD [address] [address] PCP - General INTERNAL MEDICINE 12/22/22 documented as of this encounter
--- OUTSIDE RECORDS SUMMARY | 2024-08-08 20:45 | XMS_ITS | Encounter Summary ---
Author Organization [facility] Address [address] [place] [address]. [place], [place] [address] [place] [address] Care Team Providers Care Web Consultant Name Role Phone Santa Ospina MD Primary Care Provider [phone] Reason for Visit * Reason Onset Date Comments Medication 04/20/2024 Encounter Details Date Type Department Care Team (Late st Contact Info) Description 04/20/2024 Telephone [facility] Medical [facility] Multispecialty Care - [place] [address] [address] [place] [address] Santa Ospina MD [address] [place] [address] [address] [place], [place] [id number] Medication Social History Tobacco Use Types Packs/Day Years [...] Progress Notes * Sherrill Mix MA - 04/20/2024 1:59 PM CDT LVM for patient to call the office * Anam Bar - 04/20/2024 9:41 AM CDT Carmelina Wall called and requested a refill of her PHENTERMINE please. Thank you. Last visit with SANTA OSPINA in FAMILY PRACTICE was on: 11/11/2023 in [facility] documented in this encounter Plan of Treatment Upcoming Encounters Date Type Department Care Team (Late st Contact Info) Description 09/12/2024 3:40 PM SEATER GRINDER Office Visit [facility] Medical Group Multispecialty Care - [place] [address] [address] [place] [address] [place] [address] [place] [address] documented as of this encounter Visit Diagnoses Not on filedocumented in this encounter Additional Health Concerns Assessment Noted Time PHQ-9 Depression Total Score: 0 10/07/19 24 1:17 PM SEATER GRINDER documented as of this encounter Care Teams Web Consultant Relationship Specialty Start Date End Date Santa Ospina MD [address] [place] [address] PCP - General INTERNAL MEDICINE 12/22/22 documented as of this encounter
--- OUTSIDE RECORDS SUMMARY | 2024-08-08 20:45 | XMS_ITS | Encounter Summary ---
Author Organization [facility] Address [address] [place] [address]. [place] [address] [place] [address] Care Team Providers Care Plastic Frame Inserter Name Role Phone Santa Ospina MD Primary Care Provider [phone] Reason for Visit * Auth/Cert (Routine) Specialty Diagnoses / Procedures Referred By Contac t Referred To Contact Diagnoses GERD (gastroesophageal reflux disease) Screening for colon cancer screening colonoscopy, GERD Procedures UPPER GI ENDOSCOPY,BIOPSY COLONOSCOPY,DIAGNOSTIC EGD WITH BIOPSY COLONOSCOPY Lidia Dotson MD [address] [address] Phone: tel: fax: Referral ID Status Reason Start Date Expiration Date Visits Re quested Visits Authorized [id number] 1 1 Encounter Details Date Type Department Care Team (Late st Contact Info) Description 11/05/2023 2:00 PM CDT - 11/05/2023 2:30 PM CDT Surgery [facility] Endo/[place], [place] [address] Lidia Dotson MD [address] [phone] EGD, GASTRIC BIOPSY TO RULE OUT H.PLYORIC WITH COLD FORCEPS Surgery Details Date/Time Status Location OR Service Patient Class Case Class Case Type Trauma Case? 11/05/2023 2:00 PM Posted [facility] Endo 2 Gastroenterology Short Stay/Outpa tient Surgery No Panel 1 Procedure LRB Anes Op Region Wound Class Comments EGD, GASTRIC BIOPSY TO RULE OUT H.PLYORIC WITH COLD FORCEPS N/A Local Clean Contami nated COLONOSCOPY, ASCENDING COLON POLYP REMOVED WITH COLD SNARE N/A General Clean Contaminate d Surgeon Surgeon Role Service Panel Lidia Dotson MD Primary Gastroenterology 1 documented in this encounter Social History Tobacco [...] Sign Reading Time Taken Comments Blood Pressure 127/77 11/05/2023 2:30 PM CDT Pulse 90 11/05/2023 2:30 PM CDT Temperature 36.3 ??C (97.4 ??F) 11/05/2023 2:22 PM CD T Respiratory Rate 18 11/05/2023 2:22 PM CDT Oxygen Saturation 99% 11/05/2023 2:30 PM CDT Inhaled Oxygen Concentration - - Weight 81.6 kg (180 lb) 11/04/2023 10:05 AM CDT Height - - Body Mass Index 29.05 10/07/2023 1:18 PM LOGGING TRACTOR OPERATOR SWAMP documented in this encounter Discharge Instructions * Attachments The following attachments cannot be sent through Care Everywhere. * Upper GI Endoscopy Discharge Instructions (Central African) * Colonoscopy Discharge Instructions (Central African) * General Anesthesia Discharge Instructions (Central African) documented in this encounter Medications at Time of Discharge omeprazole (PRILOSEC) 40 MG capsuleIndication s:Gastroesophagea l reflux disease without esophagitis Take 1 capsule (40 mg total) by mouth daily. 90 capsule 06/05/2023 Phentermine HCl 15 MG CapIndications:Cl ass 1 obesity due to excess calories with serious comorbidity and body mass index (BMI) of 32.0 to 32.9 in adult Take 15 mg by mouth daily with breakfast. 60 capsule 09/09/2023 topiramate (TOPAMAX) 50 MG TabIndications:Cl ass 1 obesity due to excess calories with serious comorbidity and body mass index (BMI) of 32.0 to 32.9 in adult Take 25 mg daily for the first 2 weeks then increase to 50 mg daily. 90 tablet 09/09/2023 valACYclovir (VALTREX) 1 g tabletIndications :Herpes Take 1 tablet (1,000 mg total) by mouth 2 (two) times daily. 21 tablet 06/05/2023 4 documented as of this encounter Progress Notes [...] MD Staff: GI Nurse: Marika Westbrook RN tangled yarn worker: Светлана Nadya [facility] Anesthesia: Local Anesthesiologist: Deonte Armstrong MD MUSIC PROFESSIONALS: Sravani Kaplan CRNA Pre-Op Diagnosis: screening colonoscopy, [...] fundus angularis revealed no abnormalities. Antrum was negative.Biopsies were taken for H. pylori. First and [...] st Contact Info) Description 09/12/2024 3:40 PM LOGGING TRACTOR OPERATOR SWAMP Office Visit [facility] Medical Group Multispecialty Care - [place] [address] [address] [place] [address] Santa Ospina MD [address] [place] [address] 157 [place] [address] documented as of this encounter Procedures Procedure [...] * Pathology (11/05/2023 12:00 AM CDT) PATHOLOGY [facility] ? Department of Laboratory Medicine ?[address] ?[place] [address] ? , extension [phone] ? Pathology Report ? Surgical Pathology Report Name: CARMELINA CLARK ?Specimen #: [id number] Age: 9 1970 (Age: 53) ?Location: [facility] Sex: F ?Procedure Date: 11/05/2023 Hospital #: [id number] ?Date Received: 11/06/2023 Date Reported: 11/10/2023 Provider: [...] Electronically Signed Out ? FAREED BEDOYA MD [facility] TISSUE GASTRIC BIOPSY SPECIMEN / Unknown 11/05/2023 2:04 PM CDT Tissue specimen (specimen) COLON STRUCTURE / Unknown 11/05/2023 2:12 PM CDT us Lidia Dotson MD PATHOLOGY/CYTOLOGY ORDERABLES Fi nal Result [facility] [address] [place] [id number], [id number] documented in this encounter Visit Diagnoses Diagnosis GERD (gastroesophageal reflux disease) Esophageal reflux GERD (gastroesophageal reflux disease) Esophageal reflux Screening for colon cancer Special screening for malignant neoplasms, colon documented in this encounter Admitting Diagnoses Diagnosis [...] Total Score: 0 10/07/19 24 1:17 PM LOGGING TRACTOR OPERATOR SWAMP documented as of this encounter Care Teams Plastic Frame Inserter Relationship Specialty Start Date End Date Santa Ospina MD [address] [address] PCP - General INTERNAL MEDICINE 12/22/22 documented as of this encounter
--- OUTSIDE RECORDS SUMMARY | 2024-08-08 20:45 | XMS_ITS | Encounter Summary ---
Author Organization [facility] Address [address] [place] [address]. [place] [address] [place] [address] Care Team Providers Care Administrative Library Assistant Name Role Phone Santa Ospina MD Primary Care Provider [phone] Reason for Visit * Reason Onset Date Comments Results 11/11/2023 Encounter Details Date Type Department Care Team (Late st Contact Info) Description 11/11/2023 Telephone [facility] Medical Group Multispecialty Care - [facility] 3 [facility], [address] [place] [phone] Kong Dotson MD 3 [facility] [address] [place] [address] Results Social History Tobacco Use Types Packs/Day Years [...] as of this encounter Progress Notes * Lona Kay LPN - 11/17/2023 8:19 AM CDT Pt called and notified of results * Lona Kay LPN - 11/16/2023 9:58 AM CDT 2nd attempt made to contact pt. VM left to r/c to office. * Ananya Muñoz MA - 11/13/2023 9:47 AM CDT Attempted to call patient with results, left vm for patient to call the office. Reminder placed----- Message from Kong Dotson MD sent at 11/10/2023 8:45 AM CDT ----- Your stomach biopsies shows mild gastritis, nothing serious. Colon polyp is benign but precanceroustype. Repeat colonoscopy in 5 years. * Whitney Chatman MA - 11/11/2023 11:21 AM CDT ----- Message from Kong Dotson MD sent at 11/10/2023 8:45 AM CDT ----- Your stomach biopsies shows mild gastritis, nothing serious. Colon polyp is benign but precanceroustype. Repeat colonoscopy in 5 years. LVM to call for results documented in this encounter Plan of Treatment Upcoming Encounters Date Type Department Care Team (Late st Contact Info) Description 09/12/2024 3:40 PM DOMESTIC TRAVEL CONSULTANT Office Visit [facility] Medical Group Multispecialty Care - [place] [address] [address] [place] [address] Santa Ospina MD [address] [place] [address] documented as of this encounter Visit Diagnoses Not on filedocumented in this encounter Additional Health Concerns Assessment Noted Time PHQ-9 Depression Total Score: 0 10/07/19 24 1:17 PM DOMESTIC TRAVEL CONSULTANT documented as of this encounter Care Teams Administrative Library Assistant Relationship Specialty Start Date End Date Santa Ospina MD [address] [facility] [address] [place] [address] PCP - General INTERNAL MEDICINE 12/22/22 documented as of this encounter
--- OUTSIDE RECORDS SUMMARY | 2024-08-08 20:45 | XMS_ITS | Encounter Summary ---
Author Organization [facility] Address [address] [place] [address]. [place], [place] [address] [place] [address] Care Team Providers Care Audio Visual Facilities Engineer Name Role Phone Santa Ospina MD Primary Care Provider [phone] Reason for Visit * Reason Comments Lab (SCAN) Encounter Details Date Type Department Care Team (Latest Contact Info) Description 05/31/2024 Scan HEALTH INFO SRVCS Scanned, Doc Med Group Lab (SCAN) Social History Tobacco Use Types Packs/Day Years [...] st Contact Info) Description 09/12/2024 3:40 PM SUPERINTENDENT DRILLING Office Visit [facility] Medical Group Multispecialty Care - [place] [address] [address] [place], [place] [address] Santa Ospina MD [address] [place] [address] 157 [place] [address] documented as of this encounter Procedures Procedure Name Priority Date/Time Associated Diagnosis Comments OUTSIDE LAB (SCAN ORDER) 05/31/2024 documented in this encounter Results * OUTSIDE LAB (SCAN ORDER) (05/31/2024) 05/31/2024 us Doc Med Group Scanned SCANNING Final Resu lt documented in this encounter Visit Diagnoses Not on filedocumented in this encounter Additional Health Concerns Assessment Noted Time PHQ-9 Depression Total Score: 0 10/07/19 24 1:17 PM SUPERINTENDENT DRILLING documented as of this encounter Care Teams Audio Visual Facilities Engineer Relationship Specialty Start Date End Date Santa Ospina MD [address] [address] PCP - General INTERNAL MEDICINE 12/22/22 documented as of this encounter
--- OUTSIDE RECORDS SUMMARY | 2024-08-08 20:45 | XMS_ITS | Encounter Summary ---
Author Organization [facility] Address [address] [place] [address]. [place], [place] [address] [place] [address] Care Team Providers Care Ticket Dispatcher Name Role Phone Santa Ospina MD Primary Care Provider [phone] Encounter Details Date Type Department Care Team (Latest Contact Info) Description 07/06/2024 Travel Social History Tobacco Use Types Packs/Day [...] st Contact Info) Description 09/12/2024 3:40 PM PACKER INSULATION Office Visit [facility] Medical Group Multispecialty Care - [address] [place] [address] Santa Ospina MD [address] [place] [address] 157 [place] [address] documented as of this encounter Visit Diagnoses Not on filedocumented in this encounter Additional Health Concerns Assessment Noted Time PHQ-9 Depression Total Score: 2 06/10/20 24 8:27 AM PACKER INSULATION documented as of this encounter Care Teams Ticket Dispatcher Relationship Specialty Start Date End Date Santa Ospina MD [address] [address] PCP - General INTERNAL MEDICINE 12/22/22 documented as of this encounter
--- OUTSIDE RECORDS SUMMARY | 2024-08-08 20:46 | XMS_ITS | Encounter Summary ---
Author Organization [facility] Address [address] [place] [address]. [place], [place] [address] [place] [address] Care Team Providers Care Documentation Manager Name Role Phone Santa Ospina MD Primary Care Provider [phone] Reason for Visit * Reason Comments Pathology (SCAN) Encounter Details Date Type Department Care Team (Late Contact Info) Description 06/02/2023 Scan HEALTH INFO SRVCS Scanned, Doc Med Group Pathology (SCAN) Social History Tobacco Use Types Packs/Day Years Used Date Smoking Tobacco: Never Assessed PHQ-2 Answer Date Recorded Patient Health Questionnaire-2 Score 0 06/10/2024 Comments Unknown Sex and Gender Information Value Date Recorded Sex Assigned at Not on file Legal Sex Female 2:57 PM CDT Gender Identity Not on file Sexual Orientation Not on file documented as of this encounter Plan of Treatment Upcoming Encounters Date Type Department Care Team ([facility] Contact Info) Description 09/12/2024 3:40 PM SOUND TESTER Office Visit [facility] Medical Group Multispecialty Care - [place] [address] [address] [place] [address] Santa Ospina MD [address] [place] [address] documented as of this encounter Procedures Procedure Name Priority Date/Time Associated Diagnosis Comments OUTSIDE CYTOPATH CERV/VAG IN TERPRET (PAP) 06/02/2023 documented in this encounter Results * PAP SMEAR WITH HPV (06/02/2023) 06/02/2023 us Doc Med Group Scanned SCANNING Final Resu lt documented in this encounter Visit Diagnoses Not on filedocumented in this encounter Care Teams Documentation Manager Relationship Specialty Start Date End Date Santa Ospina MD [address] [address] PCP - General INTERNAL MEDICINE 12/22/22 documented as of this encounter
--- OUTSIDE RECORDS SUMMARY | 2024-08-08 20:46 | XMS_ITS | Encounter Summary ---
Author Organization [facility] Address [address] [place] [address] Phone Care Team Providers Care Zipper Setter Chainstitch Name Role Phone Malgorzata Trevino MD Primary Care Provider Encounter Details Date Type Department Care Team (Late st Contact Info) Description 03/13/2020 Telephone [facility] [address] [place] [address] Medical Office [address] [place] [address] Malgorzata Trevino MD [address] [facility] [address] [place] [address] Social History Tobacco Use Types Packs/Day Years Used Date Smoking Tobacco: Never Smokeless Tobacco: Never Alcohol Use Standard Drinks/Week Comments Yes 0 (1 standard drink = 0.6 oz pur e alcohol) PHQ-2 Answer Date Recorded PHQ-2 Total Score (If total score is 3 or more points, staff should administer the PHQ-9) 0 02/06/2020 Comments No Sex and Gender Information Value Date Recorded Sex Assigned at Not on file Legal Sex Female 11:11 AM CARDIOLOGY FELLOW Gender Identity Not on file Sexual Orientation Not on file documented as of this encounter Miscellaneous Notes * Telephone Encounter - Malgorzata Trevino MD - 03/13/2020 9:29 AM CDT Called patient and reviewed recent mammogram noting asymmetry of left breast. Additional imaging ordered and will inform her once results known. Malgorzata Trevino MD [facility] Complete Care documented in this encounter Plan of Treatment Not on file documented as of this encounter Visit Diagnoses Not on filedocumented in this encounter Care Teams Zipper Setter Chainstitch Relationship Specialty Start Date End Date Malgorzata Trevino MD PCP - General Internal Medicine 12/27/19 documented as of this encounter
--- OUTSIDE RECORDS SUMMARY | 2024-08-08 20:46 | XMS_ITS | Encounter Summary ---
Author Organization [facility] Address [address] [place] [address] Phone Care Team Providers Care Concrete Handler Name Role Phone Malgorzata Trevino MD Primary Care Provider Encounter Details Date Type Department Care Team (Late st Contact Info) Description 02/02/2020 Orders Only [facility] Internal Medicine [address] [facility] Medical Office Building [address] [place] [phone] Malgorzata Trevino MD [address] [facility] [address] [place] [address] Social History Tobacco Use Types Packs/Day Years Used Date Smoking Tobacco: Never Smokeless Tobacco: Never Alcohol Use Standard Drinks/Week Comments Yes 0 (1 standard drink = 0.6 oz pur e alcohol) Comments No Sex and Gender Information Value Date Recorded Sex Assigned at Not on file Legal Sex Female 11:11 AM REGULATORY ASSOCIATE Gender Identity Not on file Sexual Orientation Not on file documented as of this encounter Ordered Prescriptions Prescription Sig Dispense Quantity Refills Last Filled Start Date End Date valACYclovir (VALTREX) 500 mg tablet Take 1 tablet (500 mg total) by mouth 2 (two) times a day 60 tablet 11 02/02/2020 documented in this encounter Progress Notes * Malgorzata Trevino MD - 02/02/2020 8:44 AM CDT Please inform labs were all normal, thyroid within range, kidney and liver function normal, glucosestable, cholesterol normal, vitamin D, b12 and magnesium normal. I sent the refill of the valtrex. Thanks, Dr. Trevino * Lora De Los Santos CMA - 02/02/2020 8:44 AM CDT Attempted to contact patient to notify her of normal lab results. VM full, will try to call back later. * Lora De Los Santos CMA - 02/02/2020 8:44 AM CDT Results discussed during visit 02/06/20 documented in this encounter Plan of Treatment Not on file documented as of this encounter Visit Diagnoses Not on filedocumented in this encounter Discontinued Medications Medication Sig Discontinue Reason Start Date End Da te valACYclovir (VALTREX) 500 mg tablet Take 1 tablet (500 mg total) by mouth 2 (two) times a day. Reorder 06/29/2017 02/02/2020 documented as of this encounter Care Teams Concrete Handler Relationship Specialty Start Date End Date Malgorzata Trevino MD PCP - General Internal Medicine 12/27/19 documented as of this encounter
--- OUTSIDE RECORDS SUMMARY | 2024-08-08 20:46 | XMS_ITS | Encounter Summary ---
Author Organization [facility] Address [address] [place] [address] Phone Care Team Providers Care Supervisor Food Checkers And Cashiers Name Role Phone No, Physician Primary Care Provider [phone] Encounter Details Date Type Department Care Team (Late st Contact Info) Description 01/11/2019 8:30 AM CDT Office Visit [facility] [address] [place] [address] [place], [place] [address] [address] Shayna Newman MD [address] [place] [address] Cicatricial alopecia (Primary Dx) Social History Tobacco Use Types Packs/Day Years Used Date Smoking Tobacco: Never Smokeless Tobacco: Never Alcohol Use Standard Drinks/Week Comments Yes 0 (1 standard drink = 0.6 oz pur e alcohol) Comments No Sex and Gender Information Value Date Recorded Sex Assigned at Not on file Legal Sex Female 11:11 AM GENERATOR TECHNICIAN Gender Identity Not on file Sexual Orientation Not on file documented as of this encounter Ordered Prescriptions Prescription Sig Dispense Quantity Refills Last Filled Start Date End Date fluocinonide (LIDEX) 0.05 % external solution Apply twice daily to scalp as needed 60 mL 2 01/11/2019 doxycycline (VIBRAMYCIN) 100 mg capsule Take 1 tablet/capsu le (100 mg total) by mouth 2 (two) times a day 60 tablet/capsule 2 01/11/2019 02/10/2019 documented in this encounter Progress Notes * Erika Warren - 01/11/2019 8:30 AM CDT Images from the original note were not included. 01/11/2019 Carmelina Wall [id number] 1970 DERMATOLOGY OUTPATIENT NOTE IOV CC: Hair loss HPI Carmelina Wall is a 48 y.o. female who presents today for evaluation of hair loss. It started 5-10 years ago. She used to pick at her hair on the top of her scalp and noticed some ofthe hair wouldn't come back. She doesn't describe discrete patches, but thinning all over that she has recently noticed worsening of thinning. No one in the family has this. She denies scalp itch or tenderness. She has tried oils. Patient reports she has her hair braided for a few months then down for a few months. She has not used relaxers or had a perm in decades. Patient washes her hair onceevery two weeks. She endorses loss of eyebrow hair. Of note, patient notes she has gone through some traumatic experiences. Patient has regular menses and no plans for . She denies thyroid issues. MEDICATIONS/ALLEGIES/FAMILY HX/SOCIAL HX: Reviewed in chart ROS Constitutional: No fever, no chills, no unintended weight loss Skin: No itching, no non-healing sores Oral: No mouth sores Genitourinary: No genital sores Other ROS per the HPI PHYSICAL EXAM - recession of anterior hairline with miniaturization of the hairs and variability in hair shaft diameter - perifollicular scaling, slight - loss of follicular ostia with perifollicular scaling starting at anterior scalp and extending to occiput, most notably on vertex Otherwise: GENERAL: Appears well. No acute distress. ORIENTATION: Alert and oriented x3. MOOD/AFFECT: Normal affect. EYES/EYELIDS: No scleral icterus. No abnormalities noted of conjunctivae or eyelids. FACE: No abnormalities noted. EARS: No abnormalities noted. SCALP/HAIR: No abnormalities noted. NECK: No abnormalities noted. CHEST: No abnormalities noted. BILATERAL LOWER EXTREMITIES: Normal BILATERAL UPPER EXTREMITIES: Normal ASSESSMENT AND PLAN 1. Alopecia - favor [facility] Discussed with patient the nature of the condition in detail with the patient. Provided patient with a handwritten educational handout regarding alopecia. Discussed realistic expectations - including saving and preserving what hair is left. Start Lidex solution BID for scaling for 6 weeks - if not scaly or itchy: DO NOT use. Topical steroid side effects reviewed including thinning of skin and striae. Start Doxycycline 100 mg BID for 6 weeks. Side effects reviewed including GI upsets and photosensitivity. Baseline photos taken today. RTC: 6-8 weeks. Patient was instructed to return sooner should they develop any new, changing and/or worsening lesions, side effects of any recommended treatments, or as needed. ATTESTATION By signing my name, I, Erika Warren, gabriele, attest that this documentation has been prepared underthe direction and in the presence of Dr. Newman. Erika Warren 01/11/2019 Abi Perez MD Cosigned by Shayna Newman MD at 01/11/2019 1:41 PM CDT Associated attestation - Shayna Newman MD - 01/11/2019 1:41 PM CDT I personally performed the services described in this documentation, reviewed and edited the documentation which was dictated to the scribe in my presence, and it accurately records my words and actions. Shayna Newman MD 01/11/2019 1:41 PM documented in this encounter Plan of Treatment Not on file documented as of this encounter Visit Diagnoses Diagnosis Cicatricial alopecia- Primary Other alopecia documented in this encounter Care Teams Supervisor Food Checkers And Cashiers Relationship Specialty Start Date End Date No, Physician PCP - General 11/12/18 12/26/19 documented as of this encounter
--- OUTSIDE RECORDS SUMMARY | 2024-08-08 20:46 | XMS_ITS | Encounter Summary ---
Author Organization [facility] Address [address] [place] [address] Care Team Providers Care Marine Pipefitter Name Role Phone Malgorzata Trevino MD Primary Care Provider Reason for Referral * Diagnostic Imaging (Routine) - Closed Specialty Diagnoses / Procedures Referred By Ramsey rodriguez Referred To Contact Diagnoses Abnormal mammogram of left breast Procedures Diagnostic Mammogram Left W Malgorzata Cuadra MD Phone: tel: fax: [place] [address] [place] [phone] Referral ID Status Reason Start Date Expiration Date Visits Re quested Visits Authorized [id number] Closed 03/12/2020 04/11/2021 1 1 Reason for Visit * Diagnostic Imaging (Routine) - Closed Specialty Diagnoses / Procedures Referred By Ramsey rodriguez Referred To Contact Diagnoses Abnormal mammogram of left breast Procedures Diagnostic Mammogram Left W Malgorzata Cuadra MD Phone: tel: fax: [place] [address] [place] [phone] Referral ID Status Reason Start Date Expiration Date Visits Re quested Visits Authorized [id number] Closed 03/12/2020 04/11/2021 1 1 Encounter Details Date Type Department Care Team (Latest Contact Info) Description 05/17/2020 8:00 AM CDT - 05/17/2020 11:59 PM CDT Hospital Encounter [facility] - [address] [facility] [address] [place] [address] Malgorzata Trevino MD [address] [place] [address] Abnormal mammogram of left breast Discharge Disposition: Discharge to home or self care Social History Tobacco Use Types Packs/Day Years [...] on file Legal Sex Female 11:11 AM SCRAP IRON CUTTER Gender Identity Not on file Sexual Orientation Not on file documented as of this encounter Medications at Time of Discharge fluconazole (DIFLUCAN) 150 mg tablet Take 1 po now then Repeat on day 4. 2 tablet 06/29/2017 fluocinonide (LIDEX) 0.05 % external solution Apply twice daily to scalp as needed 60 mL 2 01/11/2019 valACYclovir (VALTREX) 500 mg tablet Take 1 tablet (500 mg total) by mouth 2 (two) times a day 60 tablet 11 02/02/2020 documented as of this encounter Discharge Disposition Disposition Code Departure Means Destination Discharge to home or self care documented in this encounter Plan of Treatment Not on file documented as of this encounter Procedures Procedure Name Priority Date/Time Associated Diagnosis Comments DIAGNOSTIC MAMMOGRAM LEFT W JASEN Schedule Routine, Read Routine (OP Routine) 05/17/2020 8:44 AM CDT Abnormal mammogram of left breast documented in this encounter Results * Diagnostic Mammogram Left W Jasen (05/17/2020 8:44 AM CDT) Anatomical Region Laterality Modality Breast Left Mammography 05/17/2020 8:54 AM CDT Impressions 05/17/2020 9:47 AM CDT OVERALL FINAL ASSESSMENT: BI-RADS Category 1: Negative. Annual screening mammography is recommended. Dictated by: Kong Luz M.D. The radiology attending physician has personally reviewed this study, and had reviewed and/or edited this written report and agrees with it. Electronically signed by: Nicolette Painting M.D. [facility] 05/17/2020 9:47 AM CDT EXAMINATION: LEFT UNILATERAL DIGITAL DIAGNOSTIC MAMMOGRAM AND DIGITAL BREAST TOMOSYNTHESIS HISTORY: 50-year-old woman with screening detected asymmetry in the left breast on the MLO view. COMPARISON: Multiple prior mammograms dating back to 07/15/2018 TECHNIQUE: ?? Full field digital mammographic views of the LEFT breast were performed, including computer aided detection (CAD) and digital breast tomosynthesis (DBT). BREAST PARENCHYMAL COMPOSITION: The breasts are heterogenously dense, which may obscure small masses. MAMMOGRAM FINDINGS: The previously visualized asymmetry seen in the MLO view in the posterior central left breast is stable dating back to 2018 and is felt to represent normal fibroglandular breast tissue. ?? Procedure Note Nicolette Painting MD - 05/17/2020 EXAMINATION: LEFT UNILATERAL DIGITAL DIAGNOSTIC MAMMOGRAM AND DIGITAL BREAST TOMOSYNTHESIS HISTORY: 50-year-old woman with screening detected asymmetry in the left breast on the MLO view. COMPARISON: Multiple prior mammograms dating back to 07/15/2018 TECHNIQUE: Full field digital mammographic views of the LEFT breast were performed, including computer aided detection (CAD) and digital breast tomosynthesis (DBT). BREAST PARENCHYMAL COMPOSITION: The breasts are heterogenously dense, which may obscure small masses. MAMMOGRAM FINDINGS: The previously visualized asymmetry seen in the MLO view in the posterior central left breast is stable dating back to 2018 and is felt to represent normal fibroglandular breast tissue. IMPRESSION: OVERALL FINAL ASSESSMENT: BI-RADS Category 1: Negative. Annual screening mammography is recommended. Dictated by: Kong Luz M.D. The radiology attending physician has personally reviewed this study, and had reviewed and/or edited this written report and agrees with it. Electronically signed by: Nicolette Painting M.D. Malgorzata Trevino MD IMG MAMMO PROCEDURES Final Result documented in this encounter Visit Diagnoses Diagnosis Abnormal mammogram of left breast documented in this encounter Care Teams Marine Pipefitter Relationship Specialty Start Date End Date Malgorzata Trevino MD PCP - General Internal Medicine 12/27/19 documented as of this encounter
--- OUTSIDE RECORDS SUMMARY | 2024-08-08 20:46 | XMS_ITS | Encounter Summary ---
Author Organization [facility] Address [address] [place] [address] Care Team Providers Care Reed Man Name Role Phone Malgorzata Trevino MD Primary Care Provider [phone] Encounter Details Date Type Department Care Team (Late st Contact Info) Description 09/01/2020 1:28 PM MICROBIOLOGY SUPERVISOR - 09/01/2020 4:17 PM MICROBIOLOGY SUPERVISOR Emergency [facility] Emergency Department [address] [place] [address] Unknown, Alhaji Boucher Jr., MD [address] [place] [address] [place] [address] Discharge Disposition: Discharge to home or self care Social History Tobacco Use Types Packs/Day Years Used Date Smoking Tobacco: Never Assessed PHQ-2 Answer Date Recorded PHQ-2 Total Score (If total score is 3 or more points, staff should administer the PHQ-9) 0 02/06/2020 Comments No Sex and Gender Information Value Date Recorded Sex Assigned at Not on file Legal Sex Female 11:11 AM MICROBIOLOGY SUPERVISOR Gender Identity Not on file Sexual Orientation Not on file documented as of this encounter Last Filed Vital Signs Vital Sign Reading Time Taken Comments Blood Pressure 119/78 09/01/2020 1:34 PM MICROBIOLOGY SUPERVISOR Pulse 67 09/01/2020 1:34 PM MICROBIOLOGY SUPERVISOR Temperature 37.1 ??C (98.8 ??F) 09/01/2020 1:34 PM CS T Respiratory Rate - - Oxygen Saturation 100% 09/01/2020 1:34 PM MICROBIOLOGY SUPERVISOR Inhaled Oxygen Concentration - - Weight 88.5 kg (195 lb 1.8 oz) 09/01/2020 1:34 P M MICROBIOLOGY SUPERVISOR Height 167.6 cm (5' 6 ) 09/01/2020 1:34 PM MICROBIOLOGY SUPERVISOR Body Mass Index 31.49 09/01/2020 1:34 PM MICROBIOLOGY SUPERVISOR documented in this encounter Medications at Time [...] Procedure Name Priority Date/Time Associated Diagnosis Comments SCAN - LABS 09/04/2020 12:00 AM MICROBIOLOGY SUPERVISOR CBC WITH AUTO DIFFERENTIAL Routine 09/01/2020 2:04 PM MICROBIOLOGY SUPERVISOR APTT Routine 09/01/2020 2:04 PM MICROBIOLOGY SUPERVISOR PROTIME-INR Routine 09/01/2020 2:04 PM MICROBIOLOGY SUPERVISOR D-DIMER, QUANTITATIVE Routine 09/01/2020 2:04 PM MICROBIOLOGY SUPERVISOR COMPREHENSIVE METABOLIC PANEL Routine 09/01/2020 2:04 PM MICROBIOLOGY SUPERVISOR XR RADIUS ULNA RIGHT 2 VIEWS 09/01/2020 12:00 AM MICROBIOLOGY SUPERVISOR documented in this encounter Results * SCAN - LABS (09/04/2020 12:00 AM MICROBIOLOGY SUPERVISOR) Narrative 09/04/2020 12:00 AM MICROBIOLOGY SUPERVISOR Ordered by an unspecified provider. us Historical Provider Final Res ult * D-dimer, quantitative (09/01/2020 2:04 PM MICROBIOLOGY SUPERVISOR) D-Dimer, Quantitative <500 <500 ng/mLFEU [facility] Comment: Studies indicate that a D-Dimer level of <500 ng/ml FEU has a >95% negative predictive value for DVT,DIC,PE and other embolus conditions. ??Levels >500 ng/ml FEU may be present in a wide variety of conditions and should not be considered diagnostic of any disease state. Please note unit of measure has changed from ug/ml FEU to ng/ml FEU effective 06/14/19. 09/01/2020 2:04 PM MICROBIOLOGY SUPERVISOR 09/01/2020 2:43 PM MICROBIOLOGY SUPERVISOR Narrative Resulting Agency Comment ER Vida CHOW LAB BLOOD ORDERABLES Final R esult Performing Organization Address [facility] Co de Phone Number [address] [phone] * aPTT (09/01/2020 2:04 PM MICROBIOLOGY SUPERVISOR) Pathologist [facility] APTT 29 23 - 38 SECONDS [facility] Comment: New reference ranges in use 05-02-2020. 09/01/2020 2:04 PM MICROBIOLOGY SUPERVISOR 09/01/2020 2:43 PM MICROBIOLOGY SUPERVISOR Narrative Resulting Agency Comment ER Vida CHOW LAB BLOOD ORDERABLES Final R esult Performing Organization Address [facility] de Phone Number [address] [phone] * Protime-INR (09/01/2020 2:04 PM MICROBIOLOGY SUPERVISOR) Pathologist [facility] PT 13.1 12.3 - 15.1 SECONDS [facility] Comment: New reference ranges in use 05-02-2020. INR 0.94 [facility] Comment: Recommended Therapeutic range for Oral Anticoagulant Therapy No anti-coagulation therapy ? Normal Range: ?0.8-1.4 Anti-coagulation therapy ? Low intensity therapy ?2.0-3.0 ? High intensity therapy ?? 2.5-3.5 Critical Value ? Greater than or equal to 5.0 Patients should be monitored for serious bleeding. 09/01/2020 2:04 PM MICROBIOLOGY SUPERVISOR 09/01/2020 2:43 PM MICROBIOLOGY SUPERVISOR Narrative Resulting Agency Comment ER us Vida CHOW LAB BLOOD ORDERABLES [place] [address], [facility] [phone] * (ABNORMAL) Comprehensive metabolic panel (09/01/2020 2:04 PM MICROBIOLOGY SUPERVISOR) Sodium 137 135 - 145 mmol/L [facility] Potassium 3.9 3.3 - 5.1 mmol/L [facility] Chloride 102 96 - 108 mmol/L [facility] Carbon Dioxide 27 22 - 32 mmol/L [facility] Anion Gap 8 7 - 16 [facility] Glucose 87 70 - 100 mg/dL [facility] BUN 12 8 - 25 mg/dL [facility] Creatinine 0.9 0.5 - 1.1 mg/dL [facility] Comment: NOTE: Estimated GFR (Cockroft-Gault) will NOT be calculated unless patient Height and Weight were entered. Also, Kidney Disease Stage (GFR) and Estimated GFR (Cockroft-Gault) will NOT be calculated if Creatinine result is <0.2. Kidney Disease Stage 86 mL/MIN [facility] Comment: NOTE; ??The GFR is an estimated value using the creatinine, sex, age, and race of the patient. THE Estimated Kidney Disease GFR is validated for AGES 18-70 YEARS STAGE ?mL/Min ?DESCRIPTION ??1 ?90 mL/min or more ?Normal or elevated GFR ??2 ? 60-89 mL/min ?Mildly decreased GFR ??3 ? 30-59 mL/min ?Moderately decreased GFR ??4 ? 15-29 mL/min ?Severely decreased GFR ??5 ? <15 mL/min ? Kidney failure or on dialysis Est GFR (Cockcroft-G) 85 ml/MIN [facility] Comment: Estimated GFR(Cockroft-Gault)is used to calculate patient medication dosage Calcium 9.4 8.6 - 10.3 mg/dL [facility] Total Protein 7.7 6.4 - 8.3 g/dL [facility] Albumin 4.1 3.5 - 5.0 g/dL [facility] Globulin 3.6(H) 2.3 - 3.5 gm/dL [facility] Albumin/Globulin Ratio 1.1 1.1 - 1.8 [facility] Total Bilirubin 0.4 0.0 - 1.2 mg/dL [facility] AST 18 0 - 32 U/L [facility] ALT 19 0 - 33 U/L [facility] Alkaline Phosphatase 70 35 - 104 U/L [facility] 09/01/2020 2:04 PM MICROBIOLOGY SUPERVISOR 09/01/2020 2:10 PM MICROBIOLOGY SUPERVISOR Narrative Resulting Agency Comment ER us Vida CHOW LAB BLOOD ORDERABLES Final R esult [facility] [address] [place] [address], [facility] [phone] * (ABNORMAL) CBC with auto differential (09/01/2020 2:04 PM MICROBIOLOGY SUPERVISOR) WBC 7.8 3.8 - 9.9 X10 3/ul [facility] RBC 4.15 3.90 - 5.20 x10 6/ul [facility] Hemoglobin 13.6 11.9 - 15.5 g/dL [facility] Hct 40.2 35.6 - 45.5 % [facility] MCV 96.9(H) 81.3 - 96.4 fl [facility] MCH 32.8 27.1 - 33.3 pg [facility] MCHC 33.8 32.3 - 35.7 g/dl [facility] RDW 13.0 11.1 - 14.9 % [facility] Plt Count 294 150 - 400 x10 3/ul [facility] MPV 10.4 9.1 - 12.3 fl [facility] Neut % 64.3 % [facility] MitrAssist [facility] Immature Gran % 0.3 % [facility] Lymph % 26.9 % [facility] MitrAssist - [facility] Robertson % 6.0 % [facility] Eos % 1.9 % [facility] AUTO BASO % 0.6 % [facility] NEUTROPHIL ABS # 5.0 1.7 - 6.5 x10 3/ul [facility] Immature Gran # 0.0 0.0 - 0.1 x10 3/ul [facility] Absolute Lymphs (auto) 2.1 0.8 - 3.3 x10 3/ul [facility] Absolute Monos (auto) 0.5 0.2 - 0.8 x10 3/ul [facility] Absolute Eos (auto) 0.2 0.0 - 0.5 x10 3/ul [facility] BASOPHIL ABS # 0.1 0.0 - 0.1 x10 3/ul [facility] Nucleat RBC Rel Count 0.0 #/100WBC [facility] NRBC abs 0.00 0.00 - 0.01 x10 3/ul [facility] Absolute Neutrophils 5,000 200 - 8,000 /ul [facility] 09/01/2020 2:04 PM MICROBIOLOGY SUPERVISOR 09/01/2020 2:10 PM MICROBIOLOGY SUPERVISOR Narrative Resulting Agency Comment ER us Vida Raymond Duarte PA LAB BLOOD ORDERABLES [place] [address], [facility] [phone] * XR Radius Ulna Right 2 Views (09/01/2020 12:00 AM MICROBIOLOGY SUPERVISOR) Anatomical Region Laterality Modality Upper Extremities, Forearm Right Radio graphic Imaging 09/01/2020 2:38 PM MICROBIOLOGY SUPERVISOR Narrative 09/01/2020 2:39 PM MICROBIOLOGY SUPERVISOR Patient Name: CARMELINA HDZ ?Ordering Dr: Vida Duarte PA-C ?? D.O.B: 1970 ? Exam Date: 09/01/20 ?? 0000 ?? Age: 50 ?Sex: Female ? MR#: [id number] ?? Loc: ? RADIOLOGY REPORT ?? Order #[id number] ?? Radiology ? Forearm RT 2 View ? Signed ? EXAM DESCRIPTION: ?? Forearm RT 2 View ? REASON FOR STUDY: ?? Pain and swelling of the right forearm x2 days. ??No ?? history of injury. ? TECHNIQUE: ?? Frontal and lateral views of the right forearm were obtained. ? COMPARISON: ?? None ? FINDINGS: ? Normal bony alignment. ??No acute fracture seen. ??Joint spaces appear normal. ? No gross soft tissue abnormality. ? IMPRESSION: ?? No acute osseous abnormality. ? THIS IS AN ELECTRONICALLY VERIFIED FINAL REPORT ?? 09/01/2020 2:39 PM - Electronically signed by Donta Patrick M.D. ?? Donta Patrick M.D. ? AG: AG ?? D: ??09/01/2020 2:39 PM ?? T: ??09/01/2020 2:39 PM ? Report ID: [id number] ?? Reading Location: ??[id number] ? REPORT ELECTRONICALLY SIGNED IN OTHER VENDOR SYSTEM ?? Resulting Agency Comment E Procedure Note Donta Patrick MD - 09/01/2020 Patient Name: CARMELINA HDZ Dr: Vida Duarte PA-C, D.O.B: 1970 Exam Date: 09/01/20 0000 Age: 50 Sex: Female MR#: [id number] Loc: RADIOLOGY REPORT Order #[id number] Radiology Forearm RT 2 View Signed EXAM DESCRIPTION: Forearm RT 2 View REASON FOR STUDY: Pain and swelling of the right forearm x2 days. No history of injury. TECHNIQUE: Frontal and lateral views of the right forearm wereobtained. COMPARISON: None FINDINGS: Normal bony alignment. No acute fracture seen. Joint spaces appearnormal. No gross soft tissue abnormality. IMPRESSION: No acute osseous abnormality. THIS IS AN ELECTRONICALLY VERIFIED FINAL REPORT 09/01/2020 2:39 PM - Electronically signed by Donta Patrick M.D. AG: AG Report ID: [id number] Reading Location: [place] [id number] REPORT ELECTRONICALLY SIGNED IN OTHER VENDOR SYSTEM Vida CHOW IMG XR PROCEDURES Final Resu lt documented in this encounter Visit Diagnoses Not on filedocumented in this encounter Care Teams Reed Man Relationship Specialty Start Date End Date Malgorzata Trevino MD PCP - General Internal Medicine 12/27/19 documented as of this encounter
--- OUTSIDE RECORDS SUMMARY | 2024-08-08 20:46 | XMS_ITS | Encounter Summary ---
Author Organization [facility] Address [address] [place] [address]. [place], [place] [address] [place] [address] Care Team Providers Care Kindergarten Instructional Assistant Name Role Phone Santa Ospina MD Primary Care Provider [phone] Reason for Visit * Reason Onset Date Comments Lab Results 06/11/2023 Encounter Details Date Type Department Care Team (Late st Contact Info) Description 06/11/2023 Telephone [facility] Multispecialty Care - [place] [address] [address] [place], [place] [id number] Santa Ospina MD [address] [place] [address] [address] [place], [place] [id number] Lab Results Social History Tobacco Use Types Packs/Day Years Used Date Smoking Tobacco: Former Pipe Smokeless Tobacco: Former Snuff Quit: 06/2000 Comments:Counseled by Dr. Suzette joya. PHQ-2 Answer Date Recorded Patient Health Questionnaire-2 Score 0 06/05/2023 Comments Unknown Sex and Gender Information Value Date Recorded Sex Assigned at Not on file Legal Sex Female 2:57 PM CDT Gender Identity Not on file Sexual Orientation Not on file documented as of this encounter Progress Notes * Jerrica Paz MA - 06/11/2023 11:45 AM CST Spoke with patient and gave her rersults MACOGENETICIST * Jerrica Paz MA - 06/11/2023 11:45 AM CST ----- Message from Santa Ospina MD sent at 06/11/2023 11:26 AM PHARMACOGENETICIST ----- Labs looking stable. Please call and update patient. Encourage her to set up on [employer] thanks. The 10-year ASCVD risk score (Arnel RAMIREZ, et al., 2019) is: 2.1% Values used to calculate the score: Age: 53 years Sex: Female Is Non- : Yes Diabetic: No Tobacco smoker: No Systolic Blood Pressure: 123 mmHg Is BP treated: No HDL Cholesterol: 54 mg/dL Total Cholesterol: 200 mg/dL MACOGENETICIST documented in this encounter Plan of Treatment Upcoming Encounters Date Type Department Care Team (Late st Contact Info) Description 09/12/2024 3:40 PM PHARMACOGENETICIST Office Visit [facility] [place] [address] [address] [place] [address] Santa Ospina MD [address] [place] [address] documented as of this encounter Visit Diagnoses Not on filedocumented in this encounter Additional Health Concerns Assessment Noted Time PHQ-9 Depression Total Score: 4 06/05/20 23 2:55 PM CDT documented as of this encounter Care Teams Kindergarten Instructional Assistant Relationship Specialty Start Date End Date Santa Ospina MD [address] [place] [address] PCP - General INTERNAL MEDICINE 12/22/22 documented as of this encounter
--- OUTSIDE RECORDS SUMMARY | 2024-08-08 20:46 | XMS_ITS | Encounter Summary ---
Author Organization [facility] Address [address] [place] [address] Care Team Providers Care Hand Hide Stretcher Name Role Phone Physician, Undecided MD Primary Care Provider Un available Reason for Visit * Diagnostic Imaging (Routine) - Closed Specialty Diagnoses / Procedures Referred By Contac t Referred To Contact Diagnoses Screening mammogram, encounter for Procedures Screening Mammogram 2D Bilateral Screening Mammogram Bilateral W JasenNesha Green MD Phone: tel: fax: [facility] [address] [place] [address] Referral ID Status Reason Start Date Expiration Date Visits Re quested Visits Authorized [id number] Closed 04/23/2018 11/02/2019 1 1 Encounter Details Date Type Department Care Team (Late st Contact Info) Description 07/15/2018 9:07 AM HVAC INSTRUCTOR - 07/15/2018 11:59 PM [facility] Hospital Encounter [facility] [address] [facility] [address] [place] [address] Nesha Kramer MD [address] [place] [address] [address] [place] [address] Screening mammogram, encounter for Discharge Disposition: Discharge to home or self care Social History Tobacco Use Types Packs/Day Years Used Date Smoking Tobacco: Never Smokeless Tobacco: Never Alcohol Use Standard Drinks/Week Comments Yes 0 (1 standard drink = 0.6 oz pur e alcohol) Comments No Sex and Gender Information Value Date Recorded Sex Assigned at Not on file Legal Sex Female 11:11 AM HVAC INSTRUCTOR Gender Identity Not on file Sexual Orientation Not on file documented as of this encounter Medications at Time of Discharge fluconazole (DIFLUCAN) 150 mg tablet Take 1 po now then Repeat on day 4. 2 tablet 06/29/2017 valACYclovir (VALTREX) 500 mg tablet Take 1 tablet (500 mg total) by mouth 2 (two) times a day. 60 tablet 11 06/29/2017 02/02/2020 documented as of this encounter Discharge Disposition Disposition Code Departure Means Destination Discharge to home or self care documented in this encounter Plan of Treatment Not on file documented as of this encounter Procedures Procedure Name Priority Date/Time Associated Diagnosis Comments SCREENING MAMMOGRAM 2D BILATERAL Schedule Routine, Read Routine (OP Routine) 07/15/2018 9:24 AM HVAC INSTRUCTOR Screening mammogram, encounter for documented in this encounter Results * Screening Mammogram 2D Bilateral (07/15/2018 9:24 AM HVAC INSTRUCTOR) Anatomical Region Laterality Modality Breast Bilateral Mammography Narrative 07/16/2018 10:55 AM HVAC INSTRUCTOR Screening Mammogram 2D Bilateral: 07/15/18 Clinical: Screening mammogram, encounter for. ?? Prior Study Comparisons: None available at the time of interpretation. Findings: Bilateral No significant masses, malignant type calcifications, skin thickening, nipple retraction, or significant lymphadenopathy is noted in either breast. ??The CAD review showed no significant findings. The breasts are heterogeneously dense, which may obscure small masses. The patient will be notified of results by letter. Impression: BI-RADS?? ATLAS category (overall): 1 Negative ?? There is no mammographic evidence of malignancy. Routine Screening Mammogram in 1 Yr is recommended for bilateral Overall Assessment: 1 - Negative us Nesha Kramer MD IMG MAMMO PROCEDURES Final Result documented in this encounter Visit Diagnoses Diagnosis Screening mammogram, encounter for documented in this encounter Care Teams Hand Hide Stretcher Relationship Specialty Start Date End Date Physician, Dollyecnuzhat, PCP - General Pediatrics 06/02/17 11/11/18 documented as of this encounter
--- OUTSIDE RECORDS SUMMARY | 2024-08-08 20:46 | XMS_ITS | Encounter Summary ---
Author Organization [facility] Address [address] [place] [address] Phone Care Team Providers Care Screwmaker Automatic Name Role Phone Malgorzata Trevino MD Primary Care Provider Reason for Visit * Reason Onset Date Comments Lab question 02/02/2020 Encounter Details Date Type Department Care Team (Late st Contact Info) Description 02/02/2020 Telephone [facility] Internal Medicine [address] [facility] Medical Office Building [address] [place] [address] Malgorzata Trevino MD [address] [facility] [address] [place] [address] Lab question Social History Tobacco Use Types Packs/Day Years Used Date Smoking Tobacco: Never Smokeless Tobacco: Never Alcohol Use Standard Drinks/Week Comments Yes 0 (1 standard drink = 0.6 oz pur e alcohol) Comments No Sex and Gender Information Value Date Recorded Sex Assigned at Not on file Legal Sex Female 11:11 AM BINDERY MACHINE FEEDER OFFBEARER Gender Identity Not on file Sexual Orientation Not on file documented as of this encounter Miscellaneous Notes * Telephone Encounter - Lora De Los Santos CMA - 02/02/2020 10:21 AM CDT See results note * Telephone Encounter - Lora De Los Santos CMA - 02/02/2020 8:35 AM CDT Patient called this morning, she had missed her appt with you. She asked if you could send her a message regarding her recent lab results? Also is asking if you could refill her Valtrex today? Patient rescheduled Prev Visit for next Mon as a Zoom appt. documented in this encounter Plan of Treatment Not on file documented as of this encounter Visit Diagnoses Not on filedocumented in this encounter Care Teams Screwmaker Automatic Relationship Specialty Start Date End Date Malgorzata Trevino MD PCP - General Internal Medicine 12/27/19 documented as of this encounter
--- OUTSIDE RECORDS SUMMARY | 2024-08-08 20:46 | XMS_ITS | Encounter Summary ---
Author Organization [facility] Address [address] [place] [address] Care Team Providers Care Respiratory Assistant Name Role Phone Physician, Undecided MD Primary Care Provider Un available Encounter Details Date Type Department Care Team (Late st Contact Info) Description 06/29/2018 Telephone [facility] [address] [place] [address] Nesha Kramer MD [address] [facility] [address] [place] [address] Social History Tobacco Use Types Packs/Day Years Used Date Smoking Tobacco: Never Smokeless Tobacco: Never Alcohol Use Standard Drinks/Week Comments Yes 0 (1 standard drink = 0.6 oz pur e alcohol) Comments No Sex and Gender Information Value Date Recorded Sex Assigned at Not on file Legal Sex Female 11:11 AM DENT REMOVER Gender Identity Not on file Sexual Orientation Not on file documented as of this encounter Miscellaneous Notes * Telephone Encounter - Nesha Kramer MD - 06/30/2018 2:30 PM DENT REMOVER the patient can have 2 months until she can get an appointment REMOVER * Telephone Encounter - Val Chua LPN - 06/30/2018 10:49 AM DENT REMOVER I am sorry I just seen she had an appt. I did call pharmacy and had them remove her script from herfile. With a note she needs her appt Schedule first. REMOVER * Telephone Encounter - Nesha Kramer MD - 06/29/2018 5:55 PM DENT REMOVER Please make sure patient has appointment. She did not present for her appointment yesterday and wasjust given a year's worth of refills REMOVER documented in this encounter Plan of Treatment Not on file documented as of this encounter Visit Diagnoses Not on filedocumented in this encounter Care Teams Respiratory Assistant Relationship Specialty Start Date End Date Bolivar Mejia MD PCP - General Pediatrics 06/02/17 11/11/18 documented as of this encounter
--- OUTSIDE RECORDS SUMMARY | 2024-08-08 20:46 | XMS_ITS | Encounter Summary ---
Author Organization [facility] Address [address] [place] [address]. [place], [place] [address] [place] [address] Care Team Providers Care Allergy And Immunology Chief Name Role Phone Santa Ospina MD Primary Care Provider [phone] Encounter Details Date Type Department Care Team (Late st Contact Info) Description 06/09/2023 Orders Only [facility] [place] [address] [address] [place], [place] [id number] Santa Ospina MD [address] [place] [address] Social History Tobacco Use Types Packs/Day Years [...] st Contact Info) Description 09/12/2024 3:40 PM PERSONNEL AND PAYROLL TECHNICIAN [facility] - [address] [place] [address] Santa Ospina MD [facility] [address] documented as of this encounter Procedures Procedure Name Priority Date/Time Associated Diagnosis Comments HEPATITIS C ANTIBODY W/RFX TO HCV RNA Routine 06/09/2023 7:52 AM PERSONNEL AND PAYROLL TECHNICIAN TSH W/REFLEX Routine 06/09/2023 7:52 AM PERSONNEL AND PAYROLL TECHNICIAN ANTINUCLEAR ANTIBODY WI RFX Routine 06/09/2023 7:52 AM PERSONNEL AND PAYROLL TECHNICIAN HEMOGLOBIN, GLYCOSYLATED Routine 06/09/2023 7:52 AM PERSONNEL AND PAYROLL TECHNICIAN ALBUMIN URINE RANDOM W/CREATININE Routine 06/09/2023 7:52 AM PERSONNEL AND PAYROLL TECHNICIAN COMPREHENSIVE METABOLIC PANEL Routine 06/09/2023 7:52 AM PERSONNEL AND PAYROLL TECHNICIAN LIPID PANEL Routine 06/09/2023 7:52 AM PERSONNEL AND PAYROLL TECHNICIAN CBC W/DIFF AUTOMATED Routine 06/09/2023 7:52 AM PERSONNEL AND PAYROLL TECHNICIAN documented in this encounter Results * HEMOGLOBIN, GLYCOSYLATED (06/09/2023 7:52 AM PERSONNEL AND PAYROLL TECHNICIAN) HGB A1C 5.5 <5.7 % of total Hgb [place] Comment: For the purpose of screening for the presence of diabetes: <5.7% ? Consistent with the absence of diabetes 5.7-6.4% ?Consistent with increased risk for diabetes ?(prediabetes) > or =6.5% ??Consistent with diabetes This assay result is consistent with a decreased risk of diabetes. Currently, no consensus exists regarding use of hemoglobin A1c for diagnosis of diabetes in children. According to [place] Diabetes Association (ADA) guidelines, hemoglobin A1c <7.0% represents optimal control in non- diabetic patients. Different metrics may apply to specific patient populations. Standards of Medical Care in Diabetes(ADA). ?? 06/09/2023 7:52 AM PERSONNEL AND PAYROLL TECHNICIAN 06/09/2023 7:54 AM PERSONNEL AND PAYROLL TECHNICIAN Narrative [facility] - 06/11/2023 10:35 AM PERSONNEL AND PAYROLL TECHNICIAN FASTING:YES FASTING: YES Resulting Agency Comment Performing Organization Information: ?Site ID: ?Name: [facility] ?Address: [facility] [address] ?Director: Lucas Thapa Santa Ospina MD LABORATORY Final Result Performing Organization Address [facility] Co de Phone Number [facility] [address] [place] [address], [place] * TSH W/REFLEX (06/09/2023 7:52 AM PERSONNEL AND PAYROLL TECHNICIAN) TSH 1.20 mIU/L [facility] Comment: ?Reference Range ?> or = 20 Years ??0.40-4.50 ? Ranges ?First trimester ?0.26-2.66 ?Second trimester ?? 0.55-2.73 ?Third trimester ?0.43-2.91 06/09/2023 7:52 AM PERSONNEL AND PAYROLL TECHNICIAN 06/09/2023 7:54 AM PERSONNEL AND PAYROLL TECHNICIAN Narrative [facility] - 06/11/2023 10:35 AM PERSONNEL AND PAYROLL TECHNICIAN FASTING:YES FASTING: YES Resulting Agency Comment Performing Organization Information: ?Site ID: [id number] ?Name: [facility] [place] ?Address: [address] [place] [address] ?Director: Lucas Thapa MD Santa Ospina MD LABORATORY Final Result Performing Organization Address City/[facility]/ZIP Co de Phone Number [facility] [address] [place] [address], [place] * HEPATITIS C ANTIBODY W/RFX TO HCV RNA (06/09/2023 7:52 AM PERSONNEL AND PAYROLL TECHNICIAN) Pathologist [facility] HEPATITIS C AB NON-REACT MARK NON-REACT MARK [facility] Comment: HCV antibody was non-reactive. There is no laboratory evidence of HCV infection. In most cases, no further action is required. However, if recent HCV exposure is suspected, a test for HCV RNA (test code 32671) is suggested. For additional information please refer to http://Servoyant.Jia.com/faq/JHR13g0 (This link is being provided for informational/ educational purposes only.) 06/09/2023 7:52 AM PERSONNEL AND PAYROLL TECHNICIAN 06/09/2023 7:54 AM PERSONNEL AND PAYROLL TECHNICIAN Narrative [facility] - 06/11/2023 10:35 AM PERSONNEL AND PAYROLL TECHNICIAN FASTING:YES FASTING: YES Resulting Agency Comment Performing Organization Information: ?Site ID: [place] ?Name: [facility] ?Address: [address] [place] [phone] ?Director: Lucas Thapa MD Santa Ospina MD LABORATORY Final Result [facility] [facility] [id number] [place] [address], * ANTINUCLEAR ANTIBODY WI RFX (06/09/2023 7:52 AM PERSONNEL AND PAYROLL TECHNICIAN) [facility] BALTAZAR COMMENT NEGATIVE NEGATIVE [facility] Comment: A negative ANAchoice(R) indicates the absence of detectable antibodies to component analytes consisting of dsDNA, Chromatin, INDUSTRIAL ENG, Sm/INDUSTRIAL ENG, Sm, SSA, SSB, Jyoti-1, Centromere B, Scl-70 and Ribosomal P. A negative ANAchoice(R) should be interpreted in the context of the clinical and laboratory findings, and does not rule out autoimmune disease characterized by other autoantibody specificities including autoimmune hepatitis and primary biliary cirrhosis. For additional information, please refer to http://Servoyant.Stratopy/faq/XCX177 (This link is being provided for informational/ educational purposes only.) ?? 06/09/2023 7:52 AM PERSONNEL AND PAYROLL TECHNICIAN 06/09/2023 7:54 AM PERSONNEL AND PAYROLL TECHNICIAN Narrative [facility] - 06/11/2023 10:35 AM PERSONNEL AND PAYROLL TECHNICIAN FASTING:YES FASTING: YES Resulting Agency Comment Performing Organization Information: ?Site ID: [place] ?Name: [facility] ?Address: [address] [place] [address] [place] [address] ?Director: Lucas Thapa MD Santa Ospina MD LABORATORY Final Result [facility] [employer] [facility] [address] [place] [address], * (ABNORMAL) CBC W/DIFF AUTOMATED (06/09/2023 7:52 AM PERSONNEL AND PAYROLL TECHNICIAN) WBC 4.5 3.8 - 10.8 Thousand/u L [place] [place] RBC 4.17 3.80 - 5.10 Million/uL [place] [place] HGB 13.8 11.7 - 15.5 g/dL [place] [place] HCT 40.9 35.0 - 45.0 % [place] [place] MCV 98.1 80.0 - 100.0 fL [place] [place] MCH 33.1(H) 27.0 - 33.0 pg [place] [place] MCHC 33.7 32.0 - 36.0 g/dL [place] [place] RDW 12.6 11.0 - 15.0 % [place] [place] PLT 283 140 - 400 Thousand/u L [place] [place] MPV 10.9 7.5 - 12.5 fL [place] [place] ABS. NEUTROPHILS 2,187 1,500 - 7,800 cells/uL [place] [place] ABS. LYMPHOCYTES 1,787 850 - 3,900 cells/uL [place] [place] ABS. MONOCYTES 329 200 - 950 cells/uL [place] [place] ABS. EOSINOPHILS 158 15 - 500 cells/uL [place] [place] ABS. BASOPHILS 41 0 - 200 cells/uL [place] [place] SEG NEUTROPHILS 48.6 % QUES [place] LYMPHOCYTES 39.7 % [place] [place] MONOCYTES 7.3 % [place] [place] EOSINOPHILS 3.5 % [place] [place] BASOPHILS 0.9 % [place] [place] 06/09/2023 7:52 AM PERSONNEL AND PAYROLL TECHNICIAN 06/09/2023 7:54 AM PERSONNEL AND PAYROLL TECHNICIAN Narrative [facility] - 06/11/2023 10:35 AM PERSONNEL AND PAYROLL TECHNICIAN FASTING:YES FASTING: YES Resulting Agency Comment Performing Organization Information: ?Site ID: [place] ?Name: [facility] ?Address: [address] [place] [phone] ?Director: Lucas Thapa Santa Ospina MD LABORATORY Final Result [facility] - [facility] [address] [address], * ALBUMIN URINE RANDOM (06/09/2023 7:52 AM PERSONNEL AND PAYROLL TECHNICIAN) CREATININE RANDOM (U) 158 20 - 275 mg/dL [facility] MICROALBUMIN (U) 0.3 See Note: mg/dL [facility] Comment: Reference Range: Reference Range Not established MICROALB/CREAT 2 <30 mcg/mg creat [facility] Comment: The ADA defines abnormalities in albumin excretion as follows: Albuminuria Category ?Result (mcg/mg creatinine) Normal to Mildly increased ?? <30 Moderately increased ? 30-299 Severely increased ? > OR = 300 The ADA recommends that at least two of three specimens collected within a 3-6 month period be abnormal before considering a patient to be within a diagnostic category. 06/09/2023 7:52 AM PERSONNEL AND PAYROLL TECHNICIAN 06/09/2023 7:54 AM PERSONNEL AND PAYROLL TECHNICIAN Narrative [facility] - 06/11/2023 10:35 AM PERSONNEL AND PAYROLL TECHNICIAN FASTING:YES FASTING: YES Resulting Agency Comment Performing Organization Information: ?Site ID: [place] ?Name: [facility] ?Address: [address] [phone] ?Director: Lucas Thapa MD Santa Ospina MD URINE ORDERABLES Final Result [facility] [address] [place] [address], * COMPREHENSIVE METABOLIC PANEL (06/09/2023 7:52 AM PERSONNEL AND PAYROLL TECHNICIAN) Pathologist [facility] GLUCOSE 87 65 - 99 mg/dL [place] Comment: ? Fasting reference interval BUN 14 7 - 25 mg/dL [place] [place] CREATININE S/P/B 0.99 0.50 - 1.03 mg/dL [place] [place] GFR ESTIMATE 69 > OR = 60 mL/min/1. 73m2 [place] [place] BUN CREATININE RATIO SEE NOTE: (calc) [place] [place] Comment: ?? Not Reported: BUN and Creatinine are within ?? reference range. ? SODIUM S/P/B 140 135 - 146 mmol/L [place] [place] POTASSIUM S/P/B 4.1 3.5 - 5.3 mmol/L [place] [place] CHLORIDE S/P/B 105 98 - 110 mmol/L [place] [place] CO2 27 20 - 32 mmol/L [place] [place] CALCIUM S/P/B 9.0 8.6 - 10.4 mg/dL [place] [place] TOTAL PROTEIN S/P/B 7.2 6.1 - 8.1 g/dL [place] [place] ALBUMIN S/P/B 4.1 3.6 - 5.1 g/dL [place] [place] GLOBULIN 3.1 1.9 - 3.7 g/dL (calc) [place] [place] ALBUMIN/GLOBULIN RATIO 1.3 1.0 - 2.5 (calc) [place] [place] BILIRUBIN TOTAL S/P/B 0.5 0.2 - 1.2 mg/dL [place] [place] ALKALINE PHOSPHATASE S/P/B 68 37 - 153 U/L [place] [place] AST 17 10 - 35 U/L [place] [place] ALT 19 6 - 29 U/L [place] [place] 06/09/2023 7:52 AM PERSONNEL AND PAYROLL TECHNICIAN 06/09/2023 7:54 AM PERSONNEL AND PAYROLL TECHNICIAN Narrative [facility]ST[facility] - [facility] [facility] - 06/11/2023 10:35 AM PERSONNEL AND PAYROLL TECHNICIAN FASTING:YES FASTING: YES Resulting Agency Comment Performing Organization Information: ?Site ID: ?Name: [facility] ?Address: [address] [place] [phone] ?Director: Lucas Thapa Santa Ospina MD LABORATORY Final Result [facility] [address] [address], * (ABNORMAL) LIPID PANEL (06/09/2023 7:52 AM PERSONNEL AND PAYROLL TECHNICIAN) CHOLESTEROL 200(H) <200 mg/dL [place] [place] HDL 54 > OR = 50 mg/dL [place] [place] TRIGLYCERIDES 90 <150 mg/dL [place] [place] LDL (CALCULATED) 127(H) mg/dL (calc) [place] [place] Comment: Reference range: <100 Desirable range <100 mg/dL for primary prevention; ?? <70 mg/dL for patients with CHD or diabetic patients with > or = 2 CHD risk factors. LDL-C is now calculated using the Neil calculation, which is a validated novel method providing better accuracy than the Friedewald equation in the estimation of LDL-C. Fabiano ALVAREZ et al. ADAM. 2013;310(19): 7205-1585 (http://education.Stratopy/faq/YGB970) CHOL/HDL RATIO 3.7 <5.0 (calc) [place] [place] NON HDL CHOLESTEROL 146(H) <130 mg/dL (calc) [facility] [place] [place] Comment: For patients with diabetes plus 1 major ASCVD risk factor, treating to a non-HDL-C goal of <100 mg/dL (LDL-C of <70 mg/dL) is considered a therapeutic option. 06/09/2023 7:52 AM PERSONNEL AND PAYROLL TECHNICIAN 06/09/2023 7:54 AM PERSONNEL AND PAYROLL TECHNICIAN Narrative [facility] [facility]ST[facility] - [place] [facility] - 06/11/2023 10:35 AM PERSONNEL AND PAYROLL TECHNICIAN FASTING:YES FASTING: YES Resulting Agency Comment Performing Organization Information: ?Site ID: ?Name: [facility] ?Address: [address] [place] [phone] ?Director: Lucas Thapa Santa Ospina MD LABORATORY Final Result [facility] [phone] documented in this encounter Visit Diagnoses Not on filedocumented in this encounter Additional Health Concerns Assessment Noted Time PHQ-9 Depression Total Score: 4 06/05/20 23 2:55 PM CDT documented as of this encounter Care Teams Allergy And Immunology Chief Relationship Specialty Start Date End Date Santa Ospina MD [address] [facility] [address] [place] [address] PCP - General INTERNAL MEDICINE 12/22/22 documented as of this encounter
--- OUTSIDE RECORDS SUMMARY | 2024-08-08 20:46 | XMS_ITS | Encounter Summary ---
Author Organization [facility] Address [address] [facility] [address] [place] [address] Care Team Providers Care Metallurgical Lab Technician Name Role Phone Physician, Undecided MD Primary Care Provider Un available Encounter Details Date Type Department Care Team (Late st Contact Info) Description 04/26/2018 Telephone OBGYN [facility] [address] [place] [address] [address] [place] [address] Nesha Kramer MD [address] [place] [address] [address] [place] [address] Social History Tobacco Use Types Packs/Day Years Used Date Smoking Tobacco: Never Smokeless Tobacco: Never Alcohol Use Standard Drinks/Week Comments Yes 0 (1 standard drink = 0.6 oz pur e alcohol) Comments No Sex and Gender Information Value Date Recorded Sex Assigned at Not on file Legal Sex Female 11:11 AM PROPERTY FIELD ADJUSTER Gender Identity Not on file Sexual Orientation Not on file documented as of this encounter Miscellaneous Notes * Telephone Encounter - Mary Walter - 04/26/2018 3:37 PM CDT Called and LMOR to make PT aware. * Telephone Encounter - Mary Walter - 04/26/2018 3:36 PM CDT ----- Message from Nesha Kramer MD sent at 04/26/2018 1:17 PM CDT ----- Please call pt with normal / negative results. Negative cultures documented in this encounter Plan of Treatment Not on file documented as of this encounter Visit Diagnoses Not on filedocumented in this encounter Care Teams Metallurgical Lab Technician Relationship Specialty Start Date End Date PhysicianBolivar MD PCP - General Pediatrics 06/02/17 11/11/18 documented as of this encounter
--- OUTSIDE RECORDS SUMMARY | 2024-08-08 20:46 | XMS_ITS | Encounter Summary ---
Author Organization [facility] Address [address] [place] [address] Phone Care Team Providers Care [employer] Social [employer] Teacher Name Role Phone Malgorzata Trevino MD Primary Care Provider Reason for Visit * Reason Comments Establish Care Had numbness in hand s, tingling and aching in her arms went to ER in November * Consultation (Routine) - Closed Specialty Diagnoses / Procedures Referred By Ramsey rodriguez Referred To Contact Internal Medicine Diagnoses Encounter to establish care with new doctor Referral, Self Malgorzata Trevino MD [address] [address] Phone: tel: fax: Referral ID Status Reason Start Date Expiration Date V isits Requested Visits Authorized [id number] Closed Specialty Services Required 12/05/2019 06/15/2021 1 1 Encounter Details Date Type Department Care Team (Late st Contact Info) Description 12/29/2019 2:20 PM CDT Office Visit [facility] Internal Medicine [facility] Medical Office Building [address] [place] [id number] Malgorzata Trevino MD [address] [address] Tingling of both upper extremities (Primary Dx); Physical exam; Vitamin D deficiency Social History Tobacco Use Types Packs/Day Years Used Date Smoking Tobacco: Never Smokeless Tobacco: Never Alcohol Use Standard Drinks/Week Comments Yes 0 (1 standard drink = 0.6 oz pur e alcohol) Comments No Sex and Gender Information Value Date Recorded Sex Assigned at Not on file 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 Gender Identity Not on file Sexual Orientation Not on file documented as of this encounter Last Filed Vital Signs Vital Sign Reading Time Taken Comments Blood Pressure 113/74 12/29/2019 2:24 PM CDT Pulse 84 12/29/2019 2:24 PM CDT Temperature 37.3 ??C (99.2 ??F) 12/29/2019 2:24 PM CD T Respiratory Rate - - Oxygen Saturation 98% 12/29/2019 2:24 PM CDT Inhaled Oxygen Concentration - - Weight 84.8 kg (187 lb) 12/29/2019 2:24 PM CDT Height 167.6 cm (5' 6 ) 12/29/2019 2:24 PM CDT Body Mass Index 30.18 12/29/2019 2:24 PM CDT documented in this encounter Patient Instructions * Patient Instructions* Malgorzata Trevino MD - 12/29/2019 2:20 PM CDT -labs when fasting -schedule wellness visit documented in this encounter Progress Notes * Malgorzata Trevino MD - 12/29/2019 2:20 PM CDT Subjective/Objective Patient ID: Carmelina Wall is a 49 y.o. female. Chief Complaint Establish Care (Had numbness in hands, tingling and aching in her arms went to ER in November ) History of Present Illness Here to establish care. Past medical history only significant for HSV infections. Requesting refillof her Valtrex. was seen in ER in November for tingling and pain in her forearms and wrists. She states the pain and tingling started for several days prior to visiting the ER. She became concerned that it mightbe heart related which prompted her visit to [facility] ER. had an EKG done which was normal. Unsure what blood work was done but was discharged home. She states that since then the pain and tingling have pretty much subsided but it was persistent and painful for some time. She is due for a wellness visit. States pap is up to date. Last pap with her forepart laster was 06/19 and normal. She is due for her mammogram. Unsure about her tetanus status but has her immunization status athome and will bring on her next visit. Current Outpatient Medications on File Prior to Visit Medication Sig Dispense Refill ??? fluconazole (DIFLUCAN) 150 mg tablet Take 1 po now then Repeat on day 4. 2 tablet 0 ??? fluocinonide (LIDEX) 0.05 % external solution Apply twice daily to scalp as needed 60 mL 2 ??? valACYclovir (VALTREX) 500 mg tablet Take 1 tablet (500 mg total) by mouth 2 (two) times a day.60 tablet 11 ??? [DISCONTINUED] ibuprofen (ADVIL,MOTRIN) 600 mg tablet TK 1 T PO Q 6 H PRN ??? [DISCONTINUED] methocarbamoL (ROBAXIN) 500 mg tablet TK 2 TS PO Q 8 H PRN No current facility-administered medications on file prior to visit. Past Medical History: Diagnosis Date ??? HSV infection ??? STI (sexually transmitted infection) Past Surgical History: Procedure Laterality Date ??? HERNIA REPAIR Family History Problem Relation Age of Onset ??? Diabetes Father ??? Hypertension Mother ??? Blood Clot Mother ??? Diabetes Mother Review of Systems Review of Systems Constitutional: Negative. Respiratory: Negative. Cardiovascular: Negative. Musculoskeletal: Positive for myalgias. Neurological: Positive for tingling. Physical Exam Vitals BP 113/74 Pulse 84 Temp 37.3 ??C (99.2 ??F) (Oral) Ht 167.6 cm (5' 6 ) Wt 84.8 kg (187 lb) SpO2 98% BMI 30.18 kg/m?? Physical Exam Constitutional: Appearance: Normal appearance. HENT: Head: Normocephalic. Neck: Musculoskeletal: Neck supple. Cardiovascular: Rate and Rhythm: Normal rate and regular rhythm. Pulmonary: Effort: Pulmonary effort is normal. Breath sounds: Normal breath sounds. Musculoskeletal: Normal range of motion. Skin: General: Skin is warm. Neurological: Mental Status: She is alert. Sensory: Sensation is intact. Motor: Motor function is intact. Deep Tendon Reflexes: Reflexes are normal and symmetric. Comments: Tinel's and Phalen test normal Assessment/Plan Diagnoses and all orders for this visit: Tingling of both upper extremities (R20.2) (Primary) - TSH reflex to free T4; Future - Magnesium; Future - Vitamin B12; Future Resolving but will check labs. We discussed possible carpel tunnel and using wrist brace if it returns Physical exam (Z00.00) - CBC with auto differential; Future - Comprehensive metabolic panel; Future - Lipid panel; Future - TSH reflex to free T4; Future Vitamin D deficiency (E55.9) - Vitamin D 25 hydroxy; Future F/u for wellness visit documented in this encounter Plan of Treatment Not on file documented as of this encounter Procedures Procedure Name Priority Date/Time Associated Diagnosis Comments HM PAP SMEAR WITH HPV Routine 06/29/2017 documented in this encounter Results * Vitamin B12 (01/04/2020 9:18 AM CDT) Vitamin B12 420 230 - 1,250 pg/mL [facility] Comment:Testing performed by : [facility], [facility], [place]., [address] Blood specimen (specimen) 01/04/2020 9:18 AM CDT 01/04/2020 11:49 AM CDT Malgorzata Trevino MD LAB BLOOD ORDERABLES Final Result [facility] [address] [facility] Department [place] [address] * Vitamin D 25 hydroxy (01/04/2020 9:18 AM CDT) Vitamin D 25-OH 40 30 - 80 ng/mL [facility] Comment:Testing performed by : [facility], [address] [facility], [place]., [address] Blood specimen (specimen) 01/04/2020 9:18 AM CDT 01/04/2020 1:04 PM CDT Malgorzata Trevino MD LAB BLOOD ORDERABLES Final Result Performing Organization Address [place] de Phone Number [facility] [address] [facility] [place] [address] * Magnesium (01/04/2020 9:18 AM CDT) Magnesium 1.9 1.4 - 2.5 mg/dL [facility] Comment: Reference Data. Reference values for Labor and Delivery patients: < or = 0.7 mg/dL to > or = 7.3 mg/dL Current reference data last reviewd on 05/02/2015. Blood specimen (specimen) 01/04/2020 9:18 AM CDT 01/04/2020 10:00 AM CDT us Malgorzata Trevino MD LAB BLOOD ORDERABLES Final Result Performing Organization Address [facility] Phone Number [facility] [address] [facility]. [facility] [place] [address] * TSH reflex to free T4 (01/04/2020 9:18 AM CDT) TSH 1.70 0.30 - 4.20 mcIUnit/mL [facility] Blood specimen (specimen) 01/04/2020 9:18 AM CDT 01/04/2020 10:00 AM CDT Malgorzata Trevino MD LAB BLOOD ORDERABLES Final Result Performing Organization Address [place] de Phone Number [facility] [address] [facility]. [facility] [place] [address] * Lipid panel (01/04/2020 9:18 AM CDT) Cholesterol 153 30 - 199 mg/dL [facility] Comment: Interpretive Data Ages < or = 19 years ??Acceptable: ? <170 mg/dL ??Borderline high: ??170-199 mg/dL ??High: ? >or= 200 mg/dL Ages > or = 20 years ??Desirable: ?<200 mg/dL ??Borderline high: ??200-239 mg/dL ??High: ? >or= 240 mg/dL Literature References: 1. Expert Panel on Integrated Guidelines for Cardiovascular Health and Risk Reduction in Children and Adolescents. Pediatrics 2011;128:S213 2. NCEP Expert Panel. Circulation 2004;110:227 Current Interpretive Data was last revised on 2018. Triglycerides 65 <=149 mg/dL [facility] Comment: Interpretive Data Ages < or = 9 years ??Acceptable: ? <75 mg/dL ??Borderline high: ??75-99 mg/dL ??High: ? >or= 100 mg/dL Ages 10 to 20 years ??Acceptable: ? <90 mg/dL ??Borderline high: ??90-129 mg/dL ??High: ? >or= 130 mg/dL Ages > or = 20 years ??Desirable: ?<150 mg/dL ??Borderline high: ??150-199 mg/dL ??High: ? 200-499 mg/dL ?Very high: ?? >or= 499 mg/dL Literature References: 1. Expert Panel on Integrated Guidelines for Cardiovascular Health and Risk Reduction in Children and Adolescents. Pediatrics 2011;128:S213 2. NCEP Expert Panel. Circulation 2004;110:227 Current Interpretive Data was last revised on 2018. HDL 49 >=40 mg/dL [facility] Comment: Interpretive Data Ages < or = 19 years ??Acceptable: ? >45 mg/dL ??Borderline low: ?? 40-45 mg/dL ??Low: ? <40 mg/dL Ages > or = 20 years ??Desirable: ?>or= 60 mg/dL ??Low: ? <40 mg/dL Literature References: 1. Expert Panel on Integrated Guidelines for Cardiovascular Health and Risk Reduction in Children and Adolescents. Pediatrics 2011;128:S213 2. NCEP Expert Panel. Circulation 2004;110:227 Current Interpretive Data was last revised on 2018. LDL, calculated 91 <=129 mg/dL [facility] Comment: Interpretive Data Ages < or = 19 years ??Acceptable: ? <110 mg/dL ??Borderline high: ??110-129 mg/dL ??High: ?>or= 130 mg/dL Ages > or = 20 years ??Optimal: ? <100 mg/dL ??Near optimal: ?100-129 mg/dL ??Borderline high: ?? 130-159 mg/dL ??High: ?>160 mg/dL Literature References: 1. Expert Panel on Integrated Guidelines for Cardiovascular Health and Risk Reduction in Children and Adolescents. Pediatrics 2011;128:S213 2. NCEP Expert Panel. Circulation 2004;110:227 Current Interpretive Data was last revised on 2018. Non-HDL Cholesterol 104 mg/dL [facility] Comment: Interpretive Data Ages < or = 19 years ??Acceptable: ?<120 mg/dL ??Borderline high: ??120-144 mg/dL ??High: ?>145 mg/dL Ages > or = 20 years ??When triglycerides are >200 mg/dL, Non-HDL cholesterol is a secondary target of ? therapy with treatment goals that are 30 mg/dL greater than the LDL cholesterol target. ? Literature References: 1. Expert Panel on Integrated Guidelines for Cardiovascular Health and Risk Reduction in Children and Adolescents. Pediatrics 2011;128:S213 2. NCEP Expert Panel. Circulation 2004;110:227 Current Interpretive Data was last revised on 2018. Chol/HDL ratio 3 [facility] Blood specimen (specimen) 01/04/2020 9:18 AM CDT 01/04/2020 10:00 AM CDT us Malgorzata Trevino MD LAB BLOOD ORDERABLES Final Result [facility] [address] [facility]. Department [place] [address] * Comprehensive metabolic panel (01/04/2020 9:18 AM CDT) Sodium 137 135 - 145 mmol/L [facility] Potassium, pl 4.3 3.3 - 4.9 mmol/L [facility] Chloride 103 97 - 110 mmol/L [facility] CO2 26 22 - 32 mmol/L [facility] Anion gap 8 2 - 15 mmol/L [facility] BUN 9 8 - 25 mg/dL [facility] Creatinine 0.90 0.60 - 1.10 mg/dL [facility] Glucose 99 70 - 199 mg/dL [facility] Comment: Interpretive Data Fasting glucose >/= 126 mg/dl is diagnostic for diabetes. ?? Fasting is defined as no caloric intake for at least 8 hours. Fasting glucose between 100 mg/dl to 125 mg/dl is diagnostic of prediabetes. In a patient with classic symptoms of hyperglycemia or hyperglycemic crisis, a random glucose >/= 200 mg/dl is diagnostic for diabetes. In the absence of unequivocal hyperglycemia, results should be confirmed by repeat testing. The classification and Diagnosis of Diabetes Diabetes Care 2017;40 (Suppl. 1):S11. Current interpretive data was last revised 2017. Calcium 9.0 8.5 - 10.3 mg/dL [facility] Bilirubin, total 0.5 0.1 - 1.2 mg/dL [facility] Protein, pl 7.3 6.5 - 8.5 g/dL [facility] Albumin 4.0 3.5 - 5.0 g/dL [facility] Alk phos 58 40 - 130 Units/L [facility] ALT 16 7 - 45 Units/L [facility] AST 16 10 - 45 Units/L [facility] Blood specimen (specimen) 01/04/2020 9:18 AM CDT 01/04/2020 10:00 AM CDT Malgorzata Trevino MD LAB BLOOD ORDERABLES Final Result Performing Organization Address [place] Co de Phone Number [facility] [address] [facility] [place] [address] * (ABNORMAL) CBC with auto differential (01/04/2020 9:18 AM CDT) WBC 5.5 3.8 - 9.9 K/cumm [facility] Hgb 12.4 11.9 - 15.5 g/dL [facility] Hct 38.2 35.6 - 45.5 % [facility] Plt 271 150 - 400 K/cumm [facility] MPV 10.2 9.1 - 12.3 fL [facility] RBC 3.87(L) 3.90 - 5.20 M/cumm [facility] MCV 99(H) 81 - 96 fL [facility] MCH 32.0 27.1 - 33.3 pg [facility] MCHC 32.5 32.3 - 35.7 g/dL [facility] RDW CV 12.3 11.1 - 14.9 % [facility] RDW SD 44.9 35.7 - 48.1 fL [facility] Blood specimen (specimen) 01/04/2020 9:18 AM CDT 01/04/2020 9:24 AM CDT Malgorzata Trevino MD LAB BLOOD ORDERABLES Final Result Performing Organization Address [place] Co de Phone Number [facility] [address] [facility] [place] [address] * HM PAP SMEAR WITH HPV (06/29/2017) Pathologist [facility] HM Pap smear Normal [facility] Provider HEALTH MAINTENANCE Final Result documented in this encounter Visit Diagnoses Diagnosis Tingling of both upper extremities- Primary Physical exam Unspecified general medical examination Vitamin D deficiency documented in this encounter Discontinued Medications Medication Sig Discontinue Reason Start Date End Da te methocarbamoL (ROBAXIN) 500 mg tablet TK 2 TS PO Q 8 H PRN Therapy completed 11/13/2019 12/29/2019 ibuprofen (ADVIL,MOTRIN) 600 mg tablet TK 1 T PO Q 6 H PRN Therapy completed 11/14/2019 12/29/2019 documented as of this encounter Historical Medications * This list may reflect changes made after this encounter. ibuprofen (ADVIL,MOTRIN) 600 mg tablet TK 1 T PO Q 6 H PRN 11/14/2019 12/29/2019 methocarbamoL (ROBAXIN) 500 mg tablet TK 2 TS PO Q 8 H PRN 11/13/2019 12/29/2019 added in this encounter Care Teams [employer] Social [employer] Teacher Relationship Specialty Start Date End Date Malgorzata Trevino MD PCP - General Internal Medicine 12/27/19 documented as of this encounter
--- OUTSIDE RECORDS SUMMARY | 2024-08-08 20:46 | XMS_ITS | Clinical Summary ---
Author Organization [facility] Address [address] [place] [address] Care Team Providers Care Res Counselor Name Role Phone Malgorzata Trevino MD Primary Care Provider Allergies No known active allergies Medications fluconazole (DIFLUCAN) 150 mg tablet Take 1 po now then Repeat on day 4. 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 Bloating 04/30/2018 Pelvic and perineal pain 04/30/2018 Surgical History Surgery Date Site/Laterality Comments HERNIA REPAIR Medical History Medical History Date Comments HSV infection STI (sexually transmitted infection) Family History Medical History Relation Name Comments Diabetes Father Blood Clot Mother Diabetes Mother Hypertension Mother Relation Name Status Comments Brother 1 Alive Brother 2 Alive Father Alive Mother Alive Sister Alive Social History Tobacco Use Types Packs/Day Years Used Date Smoking Tobacco: Never Smokeless Tobacco: Never Alcohol Use Standard Drinks/Week Comments Yes 0 (1 standard drink = 0.6 oz pur e alcohol) PHQ-2 Answer Date Recorded PHQ-2 Total Score (If total score is 3 or more points, staff should administer the PHQ-9) 0 02/06/2020 Personal Safety Answer Date Recorded Getting School Help Needed Not on file 10/16 Comments No Sex and Gender Information Value Date Recorded Sex Assigned at Not on file 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 Gender Identity Not on file Sexual Orientation Not on file Obstetrics History Para Term AB IAB SAB Ectopic Multiple Livin g Live Births 3 3 3 3 Date Outcome GA Total Labor Labor//3rd Weight Sex Type Anes PTL Domi A1 A5 Name Clin 1989 Para 3.289 kg (7 lb 4 oz) M Vag-S pont Living 1994 Para 4.167 kg (9 lb 3 oz) M Vag-S pont Living 2002 Para 3.26 kg (7 lb 3 oz) M Vag-S pont Living Last Filed Vital Signs Vital Sign Reading Time Taken Comments Blood Pressure 119/78 09/01/2020 1:34 PM TOOL AND DIE MANAGER Pulse 67 09/01/2020 1:34 PM TOOL AND DIE MANAGER Temperature 37.1 ??C (98.8 ??F) 09/01/2020 1:34 PM CS T Respiratory Rate - - Oxygen Saturation 100% 09/01/2020 1:34 PM TOOL AND DIE MANAGER Inhaled Oxygen Concentration - - Weight 88.5 kg (195 lb 1.8 oz) 09/01/2020 1:34 P M TOOL AND DIE MANAGER Height 167.6 cm (5' 6 ) 09/01/2020 1:34 PM TOOL AND DIE MANAGER Body Mass Index 31.49 09/01/2020 1:34 PM TOOL AND DIE MANAGER Plan of Treatment Not on file Insurance [facility] [facility] PPO [facility] PPO Care Teams Res Counselor Relationship Specialty Start Date End Date Malgorzata Trevino MD PCP - General Internal Medicine 12/27/19
--- OUTSIDE RECORDS SUMMARY | 2024-08-08 20:46 | XMS_ITS | Encounter Summary ---
Author Organization [facility] Address [address] [place] [address]. 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 Office Visit [facility] [place] [address] [address] [place] [address] Santa Ospina MD [address] [place] [address] documented as of this encounter Visit Diagnoses Not on filedocumented in this encounter Additional Health Concerns Assessment Noted Time PHQ-9 Depression Total Score: 4 06/05/20 23 2:55 PM CDT documented as of this encounter Care Teams Fiber Worker Relationship Specialty Start Date End Date Santa Ospina MD [address] [place] [address] [place] [address] PCP - General INTERNAL MEDICINE 12/22/22 documented as of this encounter
--- OUTSIDE RECORDS SUMMARY | 2024-08-08 20:46 | XMS_ITS | Encounter Summary ---
Author Organization [facility] Address [address] [place] [address] Phone Care Team Providers Care Tipple Mechanic Name Role Phone Malgorzata Trevino MD Primary Care Provider Encounter Details Date Type Department Care Team (Late st Contact Info) Description 01/04/2020 9:20 AM CDT Lab [facility] Oncology 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[employer] Gender Identity Not on file Sexual Orientation Not on file documented as of this encounter Discharge Disposition Disposition Code Departure Means Destination Discharge to home or self care documented in this encounter Plan of Treatment Not on file documented as of this encounter Procedures Procedure Name Priority Date/Time Associated Diagnosis Comments EGFR Routine 01/04/2020 9:18 AM CDT Physical exam DIFFERENTIAL AUTO Routine 01/04/2020 9:1 8 AM CDT Physical exam THYROID FUNCTION CASCADE Routine 01/04/2020 9:18 AM CDT Tingling of both upper extremities Physical exam CBC WITH AUTO DIFFERENTIAL Routine 01/04/2020 9:18 AM CDT Physical exam VITAMIN D 25 HYDROXY Routine 01/04/2020 9:18 AM CDT Vitamin D deficiency MAGNESIUM Routine 01/04/2020 9:18 AM CDT Tingling of both upper extremities VITAMIN B12 Routine 01/04/2020 9:18 AM CDT Tingling of both upper extremities LIPID PANEL Routine 01/04/2020 9:18 AM CDT Physical exam COMPREHENSIVE METABOLIC PANEL Routine 01/04/2020 9:18 AM CDT Physical exam documented in this encounter Results * eGFR (01/04/2020 9:18 AM CDT) eGFR >60 mL/min/1.7 3 m2 [facility] Comment: Interpretive Data Reference Interval Normal ?>/= 90 mL/min/1.73m2 Mildly decreased* ? 60 - 89 mL/min/1.73m2 Mildly to moderately decreased ?45 - 59 mL/min/1.73m2 Moderately to severely decreased ??30 - 44 mL/min/1.73m2 Severely decreased ?15 - 29 mL/min/1.73m2 Kidney Failure ?< 15 ??mL/min/1.73m2 *Relative to young adult level If -Lebanese multiply value by 1.16. Estimated glomerular filtration rate is determined by the CKD-EPI equation recommended by the National Kidney Foundation (KDIGO 2012 Clinical Practice Guideline for the Evaluation and Management of Chronic Kidney Disease. Kidney Intnl Suppl Aug 2012;3:1). The CKD-EPI equation should not be used for patients with unstable renal function and has not been validated in children and those over 70. Current interpretive data was last reviewed 2016. Blood specimen (specimen) 01/04/2020 9:18 AM CDT 01/04/2020 10:00 AM CDT Malgorzata Trevino MD LAB BLOOD ORDERABLES Final Result [facility] [address] [facility]. [facility] [place] [address] * Differential, auto (01/04/2020 9:18 AM CDT) Neutrophil abs 3.6 1.7 - 6.5 K/cumm [facility] Imm gran abs 0.0 0.0 - 0.1 K/cumm [facility] Lymphocyte abs 1.4 0.8 - 3.3 K/cumm [facility] Monocyte abs 0.3 0.2 - 0.8 K/cumm [facility] Eosinophil abs 0.1 0.0 - 0.5 K/cumm [facility] Basophil abs 0.0 0.0 - 0.1 K/cumm [facility] Neutrophil pct 64.9 % [facility] Comment: Interpretive Data Percent cell count reference ranges are not reported, since discordance with absolute values may lead to misinterpretation of CBC data. Current Interpretive Data was last revised on 2017. Imm gran pct 0.4 % [facility] Comment: Interpretive Data Percent cell count reference ranges are not reported, since discordance with absolute values may lead to misinterpretation of CBC data. Current Interpretive Data was last revised on 2017. Lymphocyte pct 25.8 % [facility] Comment: Interpretive Data Percent cell count reference ranges are not reported, since discordance with absolute values may lead to misinterpretation of CBC data. Current Interpretive Data was last revised on 2017. Monocyte pct 6.2 % [facility] Comment: Interpretive Data Percent cell count reference ranges are not reported, since discordance with absolute values may lead to misinterpretation of CBC data. Current Interpretive Data was last revised on 2017. Eosinophil pct 2.2 % [facility] Comment: Interpretive Data Percent cell count reference ranges are not reported, since discordance with absolute values may lead to misinterpretation of CBC data. Current Interpretive Data was last revised on 2017. Basophil pct 0.5 % [facility] Comment: Interpretive Data Percent cell count reference ranges are not reported, since discordance with absolute values may lead to misinterpretation of CBC data. Current Interpretive Data was last revised on 2017. Blood specimen (specimen) 01/04/2020 9:18 AM CDT 01/04/2020 9:24 AM CDT Malgorzata Trevino MD LAB BLOOD ORDERABLES Final Result [facility] [address] [facility]. Department [place] [address] * (ABNORMAL) CBC with auto differential (01/04/2020 9:18 AM CDT) WBC 5.5 3.8 - 9.9 K/cumm [facility] Hgb 12.4 11.9 - 15.5 g/dL [facility] Hct 38.2 35.6 - 45.5 % [facility] Plt 271 150 - 400 K/cumm [facility] MPV 10.2 9.1 - 12.3 fL [facility] RBC 3.87(L) 3.90 - 5.20 M/cumm [facility] MCV 99(H) 81 - 96 fL [facility] MCH 32.0 27.1 - 33.3 pg [facility] MCHC 32.5 32.3 - 35.7 g/dL [facility] RDW CV 12.3 11.1 - 14.9 % [facility] RDW SD 44.9 35.7 - 48.1 fL [facility] Blood specimen (specimen) 01/04/2020 9:18 AM CDT 01/04/2020 9:24 AM CDT Malgorzata Trevino MD LAB BLOOD ORDERABLES Final Result [facility] [address] [facility]. Department [place] [address] * Comprehensive metabolic panel (01/04/2020 9:18 AM [...] MD LAB BLOOD ORDERABLES Final Result [facility] [address] [facility]. Department [place] [address] * Lipid panel (01/04/2020 9:18 AM CDT) [...] revised on 2018. Chol/HDL ratio 3 [facility] Blood specimen (specimen) 01/04/2020 9:18 AM CDT 01/04/2020 10:00 AM CDT Malgorzata Trevino MD LAB BLOOD ORDERABLES Final Result Performing Organization Address [facility] de Phone Number [facility] [id number] [facility] [place] [address] * TSH reflex to free T4 (01/04/2020 9:18 AM CDT) TSH 1.70 0.30 - 4.20 mcIUnit/mL [facility] Blood specimen (specimen) 01/04/2020 9:18 AM CDT 01/04/2020 10:00 AM CDT Malgorzata Trevino MD LAB BLOOD ORDERABLES Final Result Performing Organization Address [facility] de Phone Number [facility] [address] [facility] [place] [address] * Magnesium (01/04/2020 9:18 AM CDT) Magnesium 1.9 1.4 - 2.5 mg/dL [facility] Comment: Reference Data. Reference values for Labor and Delivery patients: < or = 0.7 mg/dL to > or = 7.3 mg/dL Current reference data last reviewd on 05/02/2015. Blood specimen (specimen) 01/04/2020 9:18 AM CDT 01/04/2020 10:00 AM CDT Malgorzata Trevino MD LAB BLOOD ORDERABLES Final Result Performing Organization Address [facility] Co de Phone Number [facility] [address] [facility]. [facility] [place] [address] * Vitamin D 25 hydroxy (01/04/2020 9:18 AM CDT) Vitamin D 25-OH 40 30 - 80 ng/mL [facility] Comment:Testing performed by : [facility], [address] [place]., [address] Blood specimen (specimen) 01/04/2020 9:18 AM CDT 01/04/2020 1:04 PM CDT Malgorzata Trevino MD LAB BLOOD ORDERABLES Final Result Performing Organization Address [facility] Co de Phone Number [facility] [phone] [facility]. [facility] [place] [address] * Vitamin B12 (01/04/2020 9:18 AM CDT) Vitamin B12 420 230 - 1,250 pg/mL [facility] Comment:Testing performed by : [facility], [facility] [facility], [place]., [address] Blood specimen (specimen) 01/04/2020 9:18 AM CDT 01/04/2020 11:49 AM CDT Malgorzata Trevino MD LAB BLOOD ORDERABLES Final Result Performing Organization Address [facility] Co de Phone Number [facility] [address] [facility] [facility] [place] [address] documented in this encounter Visit Diagnoses Diagnosis Tingling of both upper extremities Vitamin D deficiency Physical exam Unspecified general medical examination documented in this encounter Care Teams Tipple Mechanic Relationship Specialty Start Date End Date Malgorzata Trevino MD PCP - General Internal Medicine 12/27/19 documented as of this encounter
--- OUTSIDE RECORDS SUMMARY | 2024-08-08 20:46 | XMS_ITS | Encounter Summary ---
Author Organization [facility] Address [address] [place] [address]. [place], [place] [id number] [place] [id number] Care Team Providers Care [employer] Name Role Phone Santa Ospina MD Primary Care Provider [phone] Reason for Referral * (Routine) - Closed Specialty Diagnoses / Procedures Referred By Contac t Referred To Contact Diagnoses Bilateral impacted cerumen Procedures *Ear Cerumen Removal Santa Ospina MD [address] [address] Phone: tel: fax: Referral ID Status Reason Start Date Expiration Date Visits Re quested Visits Authorized [id number] Closed 06/05/2023 06/05/2024 1 1 * Consultation (Routine) - Closed Specialty Diagnoses / Procedures Referred By Contshanna t Referred To Contact GASTROENTEROLOGY Diagnoses Screen for colon cancer Santa Ospina MD [address] [address] Phone: tel: fax: [facility] [address] [address] Phone: tel: fax: Referral ID Status Reason Start Date Expiration Date Visits Re quested Visits Authorized [id number] Closed 06/05/2023 07/06/2024 99 99 Reason for Visit * Reason Comments Menopause States she needs a f ull blood panel. Pain States her body ache s thinks she has inflammation Leg Pain Left hurts more than right Dermatitis Having problems with alopecia wants to be referred to a good derm. Nausea States she Wants to be referred to gastro doctor is having trouble digesting and states she needs a colonoscopy. Foot Pain States she needs to see a foot specialists. Physical GERD Follow Up Chronic medical issu es Encounter Details Date Type Department Care Team (Latest Contact Info) Description 06/05/2023 1:40 PM CDT Office Visit [facility] Multispecialty Care - [place] [address] [address] [place] [address] Santa Ospina MD [address] [place] [address] [address] [place] [address] Menopause (States she needs a full blood panel. ); Pain (States her body aches thinks she has inflammation); Leg Pain (Left hurts more than right); Dermatitis (Having problems with alopecia wants to be referred to a good derm. ); Nausea (States she Wants to be referred to gastro doctor is having trouble digesting and states she needs a colonoscopy. ); Foot Pain (States she needs to see a foot specialists. ); Physical; GERD; Follow Up (Chronic medical issues) Social History Tobacco Use Types [...] Sign Reading Time Taken Comments Blood Pressure 123/75 06/05/2023 2:04 PM CDT Pulse 73 06/05/2023 2:04 PM CDT Temperature 36.2 ??C (97.2 ??F) 06/05/2023 2:04 PM CD T Respiratory Rate 16 06/05/2023 2:04 PM CDT Oxygen Saturation 100% 06/05/2023 2:04 PM CDT Inhaled Oxygen Concentration - - Weight 91.5 kg (201 lb 12.8 oz) 06/05/2023 2:04 PM CDT Height 167.6 cm (5' 6 ) 06/05/2023 2:04 PM CDT Body Mass Index 32.57 06/05/2023 2:04 PM CDT documented in this encounter Patient Instructions * Patient Instructions* Santa Ospina MD - 06/05/2023 1:40 PM CDT Follow up in August 2023 for your GERD and weight. * Attachments The following attachments cannot be sent through Care Everywhere. * Yearly Physical for Adults ([place]) documented in this encounter Progress Notes * Santa Ospina MD - 06/05/2023 1:40 PM CDTAssociated Order(s): *Ear Cerumen Removal Post-Procedure Diagnose(s): Bilateral impacted cerumen Summary: New patient notes Images from the original note were not included. ANNUAL PHYSICAL NOTES Encounter Date: 06/05/2023 Chief Complaint: 53-year-old female presents for Menopause (States she needs a full blood panel. ), Pain (States herbody aches thinks she has inflammation), Leg Pain (Left hurts more than right), Dermatitis (Having problems with alopecia wants to be referred to a good derm. ), Nausea (States she Wants to be referred to gastro doctor is having trouble digesting and states she needs a colonoscopy. ), Foot Pain (Sta kam she needs to see a foot specialists. ), Physical, GERD, and Follow Up (Chronic medical issues) . The patient is being seen for a health maintenance evaluation and to discuss concerns about abdominal discomfort and perimenopausal symptoms as well as joint aches and pains. She follows with Dr Loza and sees her as planned and directed. Plans for pelvic ultrasound for follow up. Patient tells me she does not have a known diagnosis of uterine fibroids however her REGIONAL HR MANAGER wants to follow-up with a pelvic ultrasound for further evaluation. Has not had a primary care provider in many years. 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 No recent flareups. Patient is also concerned about intermittently having periumbilical and epigastric abdominal pain that has been going on for many months. Over the last couple of weeks, patient has noticed more persistent recurrent symptoms. Recently, his symptoms flared up causing patient to go to the emergency room and was seen at [facility] emergency room where she underwent a CT abdomen pelvis which was negative for any acute concerns. She was prescribed omeprazole 40 mg however patient yet to start the medication as she did not know the reason why she was prescribed a medication. Her symptoms are predominantly present whenever she lays down. No associated night cough. No associated diarrhea or nausea. She feels bloated intermittently. No past history of gallbladder disease. Notes symptoms not related to hunger. She has tried to avoid dairy products as this makes her feel better. Of note, she reports prior history of periumbilical hernia repair. Occasionally would feel some discomfort in the area. She tells me she thinks she is perimenopausal phase. She has noticed some weight gain. Was previously on phentermine to help with weight and this was about one year ago. Very achy all over. No joint swelling other than noticing some fullness in the posterior aspect of both knees. No history of Woodawrd's cyst. She did bring to my attention having a history of alopecia. She has already been referred to dermatology and patient will be keeping the appointment. 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 She lives with her and currently an empty eli. She has 3 grown young man as her children. General Health: good Dental Health: Sees dentist regularly Vision Health: Wears glasses Hearing Health: No hearing problems Immunizations Needed: Influenza and COVID Weight: Obese Body mass index is 32.57 kg/m??. Physical Activity: Acitve lifestyle Cervical Cancer Screening: up to date Breast Cancer Screening: scheduled and patient will be having completed Colorectal Cancer Screening: Due Metabolic Screening: Patient needs to be screened today. HCV Screening: done PHQ-9 Screening Score: PHQ-9: 06/05/2023 2:55 PM PHQ2/PHQ 9 DEPRESSION SCREEN QUESTIONAIRE Little interest or pleasure in doing things Not at all Feeling down, depressed, or hopeless Not at all Patient Health Questionnaire-2 Score 0 Trouble falling or staying asleep, or sleeping too much Over half Feeling tired or having little energy Over half Poor appetite or overeating Not at all Feeling bad about yourself - or that you are a failure or have let yourself or your family down Notat all Trouble concentrating on things, such as reading the newspaper or watching television Not at all Moving or speaking so slowly that other people could have noticed? Or the opposite - being so fidgety or restless that you have been moving around a lot more than usual. Not at all Thoughts that you would be better off or hurting yourself in some way Not at all Patient Health Questionnaire-9 Score 4 How difficult have these problems made it for you to do your work, take care of things at home, or get along with other people? Not difficult at all SHARON-7 (Generalized Anxiety Disorder) Screening 06/05/2023 2:55 PM SHARON-7 Feeling nervous, anxious, or on edge 1 Not being able to stop or control worrying 1 Worrying too much about different things 3 Being so restless that it is hard to sit still 0 Becoming easily annoyed or irritable 0 Feeling afraid as if something awful might happen 0 Smoking Status: History Smoking Status Former Types: Pipe Smokeless Tobacco Former Types: Snuff Quit date: 06/2000 Patient does not meet criteria for Low Dose CT screening Sleep Apnea Risk Factors: Snoring, Fatigue, Witnessed Apnea, and >50yo Review of Systems Constitutional: Negative for activity [...] flank pain, frequency, hematuria and urgency. Musculoskeletal: Positive for arthralgias. Negative for back pain, gait problem, joint swelling andmyalgias. Skin: Negative for pallor, rash and wound. Neurological: Negative for dizziness, tremors, syncope, weakness, light- headedness and headaches. Hematological: Negative for adenopathy. Does not bruise/bleed easily. Psychiatric/Behavioral: Negative for agitation, behavioral problems, confusion, decreased concentration, dysphoric mood, hallucinations, self-injury, sleep disturbance and suicidal ideas. The patientis nervous/anxious. The patient is not hyperactive. There is no problem list on file for this patient. History reviewed. No pertinent past medical history. History reviewed. No pertinent surgical history. No family history on file. Social History Socioeconomic History Marital status: Spouse name: Not on file Number of children: Not on file Years of education: Not on file Highest education level: Not on file Occupational History Not on file Tobacco Use Smoking status: Former Types: Pipe Smokeless tobacco: Former Types: Snuff Quit date: 06/2000 Tobacco comments: Counseled by Dr. Ospina. Substance and Sexual Activity Alcohol use: Not on file Drug use: Not on file Sexual activity: Not on file Other Topics [...] on file Immunization History Administered Date(s) Administered PFIZER COVID-19 (ORIGINAL FORMULATION, PURPLE CAP) mRNA, LNP-S, PF, 30 MCG/0.3 ML DOSE 01/04/2021, 01/28/2021, 07/03/2021 Current Outpatient Medications Medication Sig Dispense Refill omeprazole (PRILOSEC) 40 MG capsule Take 1 capsule (40 mg total) by mouth daily. 90 capsule 0 valACYclovir (VALTREX) 1 g tablet Take 1 tablet (1,000 mg total) by mouth 2 (two) times daily. 21 tablet 0 No current facility-administered medications for this visit. No current outpatient medications on file prior to visit. No current facility-administered medications on file prior to visit. Review of patient's allergies indicates: Not on File Objective: Filed Vitals: 06/05/23 1404 BP: 123/75 Pulse: 73 Resp: 16 Temp: 97.2 ??F (36.2 ??C) TempSrc: Temporal SpO2: 100% Weight: 91.5 kg (201 lb 12.8 oz) Height: 1.676 m (5' 6 ) Physical Exam Constitutional: General: She is not in acute distress. Appearance: She is not ill-appearing, toxic-appearing or diaphoretic. HENT: Head: Normocephalic and atraumatic. Right Ear: Tympanic membrane, ear canal and external ear normal. There is no impacted cerumen. Left Ear: Tympanic membrane, ear canal and external ear normal. There is no impacted cerumen. Nose: Nose normal. No congestion. [...] not jaundiced or pale. Findings: No bruising, erythema, lesion or rash. Neurological: Mental Status: She is alert and oriented to person, place, and time. Cranial Nerves: No cranial nerve deficit. Motor: No abnormal muscle tone. Coordination: Coordination normal. Gait: Gait is intact. Deep Tendon Reflexes: Reflexes are normal and symmetric. Reflexes normal. Psychiatric: Mood and Affect: Affect normal. Behavior: Behavior normal. Thought Content: Thought content normal. Cognition and Memory: Memory normal. Judgment: Judgment normal. *Ear Cerumen Removal Date/Time: 06/05/2023 4:52 PM Performed by: Santa Ospina MD Authorized by: Santa Ospina MD Location details: right ear and left ear Patient tolerance: patient tolerated the procedure well with no immediate complications Procedure type: curette Sedation: Patient sedated: no Assessment & Plan: Carmelina was seen today for meet and greet provider, menopause, pain, leg pain, dermatitis, nausea, footpain and copd. Diagnoses and all orders for this visit: Annual physical exam - Patient past medical, surgical, family history and social history updated. Allergies, immunizations and medications updated. Also did discuss healthy lifestyle including exercising, dietary changes and safe sexual practices as well as safe habits common to patient age group including wearing seat belt when transporting in a vehicle and limiting alcohol and avoiding smoking/second hand smoking. Patient will set up MyChart. Patient will fax over any remaining outside records that would be relevant to care provided. - Cancel: HEPATITIS C ANTIBODY; Future - HEMOGLOBIN, GLYCOSYLATED; Future - TSH W/REFLEX; Future - LIPID PANEL; Future - COMPREHENSIVE METABOLIC PANEL; Future - CBC W/DIFF AUTOMATED; Future - ALBUMIN/CREATININE RATIO, RANDOM URINE; Future - HEMOGLOBIN, GLYCOSYLATED - TSH W/REFLEX - LIPID PANEL - COMPREHENSIVE METABOLIC PANEL - CBC W/DIFF AUTOMATED - ALBUMIN/CREATININE RATIO, RANDOM URINE - Cancel: HEPATITIS C ANTIBODY W/RFX TO HCV RNA; Future - HEPATITIS C ANTIBODY W/RFX TO HCV RNA; Future - HEPATITIS C ANTIBODY W/RFX TO HCV RNA General medical exam - Patient past medical, surgical, family history and social history updated. Allergies, immunizations and medications updated. Also did discuss healthy lifestyle including exercising, dietary changes and safe sexual practices as well as safe habits common to patient age group including wearing seat belt when transporting in a vehicle and limiting alcohol and avoiding smoking/second hand smoking. Patient will set up MyChart. Patient will fax over any remaining outside records that would be relevant to care provided. - HEMOGLOBIN, GLYCOSYLATED; Future - TSH W/REFLEX; Future - LIPID PANEL; Future - COMPREHENSIVE METABOLIC PANEL; Future - CBC W/DIFF AUTOMATED; Future - ALBUMIN/CREATININE RATIO, RANDOM URINE; Future - HEMOGLOBIN, GLYCOSYLATED - TSH W/REFLEX - LIPID PANEL - COMPREHENSIVE METABOLIC PANEL - CBC W/DIFF AUTOMATED - ALBUMIN/CREATININE RATIO, RANDOM URINE - Cancel: HEPATITIS C ANTIBODY W/RFX TO HCV RNA; Future - HEPATITIS C ANTIBODY W/RFX TO HCV RNA; Future - HEPATITIS C ANTIBODY W/RFX TO HCV RNA Establishing care with new doctor, encounter for - HEMOGLOBIN, GLYCOSYLATED; Future - TSH W/REFLEX; Future - LIPID PANEL; Future - COMPREHENSIVE METABOLIC PANEL; Future - CBC W/DIFF AUTOMATED; Future - ALBUMIN/CREATININE RATIO, RANDOM URINE; Future - HEMOGLOBIN, GLYCOSYLATED - TSH W/REFLEX - LIPID PANEL - COMPREHENSIVE METABOLIC PANEL - CBC W/DIFF AUTOMATED - ALBUMIN/CREATININE RATIO, RANDOM URINE Screening for diabetes mellitus - HEMOGLOBIN, GLYCOSYLATED; Future - HEMOGLOBIN, GLYCOSYLATED Screening for hyperlipidemia - LIPID PANEL; Future - LIPID PANEL Screening for hypothyroidism - TSH W/REFLEX; Future - TSH W/REFLEX Encounter for hepatitis C screening test for low risk patient - HEPATITIS C ANTIBODY W/RFX TO HCV RNA; Future - HEPATITIS C ANTIBODY W/RFX TO HCV RNA Screen for colon cancer - Ambulatory referral to Gastroenterology ([facility]) Postmenopausal -Currently patient's symptoms mild to moderate. Follows with REGIONAL HR MANAGER and currently not on any hormonal replacement therapy. I did discuss options for treatment with patient including options also for nonhormonal replacement therapy. Working here as above and checking her labs as above. We will considertopiramate once I see patient during her next visit versus other options for antidepressants to help with her symptoms. Gastroesophageal reflux disease without esophagitis - Mild to moderate symptoms. No red flag signs. Follow-up in 8 weeks. - Patient with chronic esophageal reflux by history. I discussed with the patient aggravating foodsto avoid such as alcohol, caffeine, tomato based-foods, citrus, spicy foods, etc. Pt was instructedon other measures to reduce sxs such as avoiding bending, exercising, laying down just after eating, don???t wear tight belts or garments, lose weight, eat smaller meals, no smoking and sleep with head of bed elevated about 6 inches. Will start trial of PPI for symptomatic care. Discussed if trial of PPI fails, will likely need to perform an EGD for evaluation and definitive diagnosis. Once on PPI for 3-6 months, will start on trial of H2 nathan as tolerated. Patient agrees with treatment plan. -Please start taking omeprazole (PRILOSEC) 40 MG capsule; Take 1 capsule (40 mg total) by mouth daily. Herpes -Stable. -Use valACYclovir (VALTREX) 1 g tablet; Take 1 tablet (1,000 mg total) by mouth 2 (two) times daily. Alopecia - BALTAZAR W/REFLEX; Future - BALTAZAR W/REFLEX Class 1 obesity due to excess calories with serious comorbidity and body mass index (BMI) of 32.0 to 32.9 in adult - -Pt has elevated weight with BMI Body mass index is 32.57 kg/m??., and will need to work hard on reducing carbohydrates and total calories. -You may use the free smart phone apps such as [facility] to help track calories and try to [...] per week and 5 pounds per month. Anxiety -Currently has symptoms stable. Close follow-up during subsequent visits and will reassess. I suspect symptoms may be related to her perimenopausal symptoms and work overload. Musculoskeletal pain -Her symptoms are very nonspecific and likely related to perimenopausal symptoms. Close follow-up during subsequent visits Bilateral impacted cerumen - REMOVE IMPACTED CERUMEN INSTRUMENTATION UNILAT Other orders - *Ear Cerumen Removal I personally spent a total of 65 minutes on the day of the encounter. This includes iloc-un-irkx and uvr-ojnb-rw-face time I provided on the day of the encounter & excludes time spent performing separately reportable services. CALVIN: This dictation was at least in part performed using [employer] and there may be some inherent flaws in this retail cosmetics sales beauty advisor due to the nature of this program. MD Santa MARTINEZ MD Internal Medicine [facility], [facility]. 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 Office Visit [facility] Multispecialty Care - [place] [address] [facility] [address] [place] [address] Santa Ospina MD [address] [facility] [address] [place] [address] Scheduled Orders Name Type Priority Associated Diagnoses Orde r Schedule REMOVE IMPACTED CERUMEN INSTRUMENTATION UNILAT Procedures Routine Bilateral impacted cerumen Ordered: 06/05/2023 Scheduled Referrals Name Type Priority Associated Diagnoses Orde r Schedule Ambulatory referral to Gastroenterology ([facility]) Referral Routine Screen for colon cancer Ordered: 06/05/2023 documented as of this encounter Procedures Procedure Name Priority Date/Time Associated Diagnosis Comments REMOVE IMPACTED CERUMEN INSTRUMENTATION UNILAT Routine 06/05/2023 4:52 PM CDT Bilateral impacted cerumen documented in this encounter Results * REMOVE IMPACTED CERUMEN INSTRUMENTATION UNILAT (06/05/2023 4:52 PM CDT) Narrative Santa Ospina MD - 06/05/2023 4:52 PM CDT Santa Ospina MD ? 06/05/2023 ??5:01 PM *Ear Cerumen Removal Date/Time: 06/05/2023 4:52 PM Performed by: Santa Ospina MD Authorized by: Santa Ospina MD Location details: right ear and left ear Patient tolerance: patient tolerated the procedure well with no immediate complications Procedure type: curette Sedation: Patient sedated: no us Santa Ospina MD PROCEDURE/MINOR SURGICAL ORDERAB LES Final Result documented in this encounter Visit Diagnoses Diagnosis Annual physical exam- Primary Routine general medical examination at a health care facility General medical exam Unspecified general medical examination Establishing care with new doctor, encounter for Other reasons for seeking consultation Screening for diabetes mellitus Screening for hyperlipidemia Screening for lipoid disorders Screening for hypothyroidism Screening for thyroid disorder Encounter for hepatitis C screening test for low risk patient Screen for colon cancer Special screening for malignant neoplasms, colon Postmenopausal Asymptomatic postmenopausal status (age-related) (natural) Gastroesophageal reflux disease without esophagitis Esophageal reflux Herpes Herpes simplex without mention of complication Alopecia Alopecia, unspecified Class 1 obesity due to excess calories with serious comorbidity and body mass index (BMI) of 32.0 to 32.9 in adult Anxiety Anxiety state, unspecified Musculoskeletal pain Mylagia and myositis, unspecified Bilateral impacted cerumen Impacted cerumen documented in this encounter Additional Health Concerns Assessment Noted Time PHQ-9 Depression Total Score: 4 06/05/20 23 2:55 PM CDT documented as of this encounter Care Teams [employer] Relationship Specialty Start Date End Date Santa Ospina MD [address] [facility] [address] [place] [id number] PCP - General INTERNAL MEDICINE 12/22/22 documented as of this encounter
--- OUTSIDE RECORDS SUMMARY | 2024-08-08 20:46 | XMS_ITS | Encounter Summary ---
Author Organization [facility] Address [address] [place] [address] Phone Care Team Providers Care Welder Tech Name Role Phone Malgorzata Trevino MD Primary Care Provider Reason for Referral * Diagnostic Imaging (Routine) - Closed Specialty Diagnoses / Procedures Referred By Ramsey rodriguez Referred To Contact Diagnoses Screening for breast cancer Procedures Screening Mammogram Bilateral W Malgorzata Cuadra MD Phone: tel: fax: [address] [address] Referral ID Status Reason Start Date Expiration Date Visits Re quested Visits Authorized [id number] Closed 02/06/2020 08/17/2021 1 1 Encounter Details Date Type Department Care Team (Late st Contact Info) Description 02/06/2020 3:40 PM CDT Telemedicine [facility] Internal Medicine [address] [facility] Medical Office Building [address] [place] [id number] Malgorzata Trevino MD [address] [facility] [address] [place] [address] Encounter for physical examination (Primary Dx); Plantar fasciitis; Pain in both upper extremities; Numbness and tingling of upper extremity; Screening for breast cancer Social History Tobacco Use Types Packs/Day Years [...] on file Legal Sex Female 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 Black Or female presenting for an annual preventative care visit. Patient's history and problem list was reviewed and updated since last preventative care visit. Has no chronic health conditions. We recently completed labs which were stable. Her pap was completed 06/29/17, mammogram ordered 02/06/20. She also notes ache in her upper extremities. Worse several a months ago but now has improved. She had been doing more repetitive exercises with her upper extremities, does a lot of typing. Sometimesnotes pain at night and was sleeping in a certain position to ease the pain, not bending her wrists. Also notes that the bottoms of her feet hurt in the morning, usually first thing in the morning andthen improves as the day goes on. She has been using a tennis ball to roll on the bottom of her foot which really helps. She denies any recent injury, increased walking. States doesn't have flat feet. Hasn't tried any oral medications for it. Current Outpatient Medications on File Prior to [...] (two) times a day 60 tablet 11 No current facility-administered medications on file prior to visit. Exam: There were no vitals taken for this visit. Physical Exam Completed over zoom. She appears to be in no apparent distress, breathing normal Wellness Plan: Age-appropriate anticipatory guidance and counseling was provided and reviewed including: Encouraged regular physical activity--moderate activity for 30 minutes 3-5 times per week Encouraged healthy diet with regular fresh fruits and vegetables (Z12.39) Screening for breast cancer Plan: Screening Mammogram Bilateral W Jasen Health Maintenance Topic Date Due ??? Depression Screening-PHQ 1970 ??? DTaP/Tdap/Td Vaccine (1 - Tdap) 1982 ??? Regular Well Visit/Exam 06/29/2018 ??? Breast Cancer Screening-Mammogram 07/15/2019 ??? Influenza Vaccine (1) 04/03/2020 ??? Cervical Cancer Screening-Pap and HPV 06/29/2022 (M72.2) Plantar fasciitis Encouraged continue with the stretching in the am, NSAIDs if needed. Consider podiatry if no improvement (M79.601, M79.602) Pain in both upper extremities (R20.0, R20.2) Numbness and tingling of upper extremity Likely carpal tunnel although seems to have improved recently. Trial of NSAIDs, wrist brace at night. Repeat preventative screening in one year. Malgorzata Trevino MD [facility] documented in this encounter Plan of Treatment Not on file documented as of this encounter Results * Screening Mammogram Bilateral W Jasen (03/07/2020 3:19 PM CDT) Anatomical Region Laterality Modality Breast Bilateral Mammography Narrative 03/09/2020 1:46 PM CDT Mammogram Technique: Bilateral Digital Breast Tomosynthesis, Bilateral C-view 2D Screening mammogram. ??Views obtained: ??bilateral craniocaudal and bilateral mediolateral oblique. ??Computer Aided Detection was performed. Mammogram Findings: The present examination has been compared to a prior imaging study performed at [facility] on 07/15/2018. The breasts are heterogeneously dense, which may obscure small masses. There is asymmetry seen in the MLO view only in the posterior central breast on the mediolateral oblique view of the left breast located 10 centimeters from the nipple. There is no suspicious abnormality in the right breast. Impression: Asymmetry in the left breast requires additional evaluation. Additional views are recommended. OVERALL FINAL ASSESSMENT: BI-RADS CATEGORY 0: ??Incomplete: ??Need additional imaging evaluation. Procedure Note Timmy Michel MD - 03/09/2020 Mammogram Technique: Bilateral Digital Breast Tomosynthesis, Bilateral C-view 2D Screening mammogram. Views obtained: bilateral craniocaudal and bilateral mediolateral oblique. Computer Aided Detection was performed. Mammogram Findings: The present examination has been compared to a prior imaging study performed at [facility] on 07/15/2018. The breasts are heterogeneously dense, which may obscure small masses. There is asymmetry seen in the MLO view only in the posterior central breast on the mediolateral oblique view of the left breast located 10 centimeters from the nipple. There is no suspicious abnormality in the right breast. Impression: Asymmetry in the left breast requires additional evaluation. Additional views are recommended. OVERALL FINAL ASSESSMENT: BI-RADS CATEGORY 0: Incomplete: Need additional imaging evaluation. Malgorzata Trevino MD IMG MAMMO PROCEDURES Final Result documented in this encounter Visit Diagnoses Diagnosis Encounter for physical examination- Primary Plantar fasciitis Plantar fascial fibromatosis Pain in both upper extremities Numbness and tingling of upper extremity Screening for breast cancer Breast screening, unspecified documented in this encounter Care Teams Welder Tech Relationship Specialty Start Date End Date Malgorzata Trevino MD PCP - General Internal Medicine 12/27/19 documented as of this encounter
--- OUTSIDE RECORDS SUMMARY | 2024-08-08 20:46 | XMS_ITS | Encounter Summary ---
Author Organization [facility] Address [address] [place] [address] Care Team Providers Care Charge Operator Name Role Phone Malgorzata Trevino MD Primary Care Provider Reason for Referral * Diagnostic Imaging (Routine) - Closed Specialty Diagnoses / Procedures Referred By Ramsey rodriguez Referred To Contact Diagnoses Screening for breast cancer Procedures Screening Mammogram Bilateral W Malgorzata Cuadra MD Phone: tel: fax: [place] [address] [address] [phone] Referral ID Status Reason Start Date Expiration Date Visits Re quested Visits Authorized [id number] Closed 02/06/2020 08/17/2021 1 1 Reason for Visit * Diagnostic Imaging (Routine) - Closed Specialty Diagnoses / Procedures Referred By Ramsey rodriguez Referred To Contact Diagnoses Screening for breast cancer Procedures Screening Mammogram Bilateral W Malgorzata Cuadra MD Phone: tel: fax: [place] [address] [place] [phone] Referral ID Status Reason Start Date Expiration Date Visits Re quested Visits Authorized [id number] Closed 02/06/2020 08/17/2021 1 1 Encounter Details Date Type Department Care Team (Latest Contact Info) Description 03/07/2020 2:20 PM CDT - 03/07/2020 11:59 PM CDT Hospital Encounter [facility] [address] [facility] [address] [place] [address] Malgorzata Trevino MD [address] [place] [address] Screening for breast cancer Discharge Disposition: Discharge to home or self [...] on file 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 The breasts are heterogeneously dense, [...] ??Incomplete: ??Need additional imaging evaluation. Procedure Note OTimmy Wu MD - 03/09/2020 Mammogram Technique: Bilateral Digital Breast Tomosynthesis, Bilateral C-view 2D Screening mammogram. Views obtained: bilateral craniocaudal and bilateral mediolateral oblique. Computer Aided Detection was performed. Mammogram Findings: The present examination has been compared to a prior imaging study performed at [facility] on 07/15/2018. The breasts are heterogeneously dense, [...] in this encounter Visit Diagnoses Diagnosis Screening for breast cancer Breast screening, unspecified documented in this encounter Care Teams Charge Operator Relationship Specialty Start Date End Date Malgorzata Trevino MD PCP - General Internal Medicine 12/27/19 documented as of this encounter
--- OUTSIDE RECORDS SUMMARY | 2024-08-08 20:46 | XMS_ITS | Encounter Summary ---
Author Organization [facility] Healthcare Address [address] [place] [address] Care Team Providers Care Turner Machine Name Role Phone Physician, Undecided MD Primary Care Provider Un available Encounter Details Date Type Department Care Team (Late st Contact Info) Description 04/22/2018 4:10 PM CDT Lab [address] [address] Social History Tobacco Use Types Packs/Day Years Used Date Smoking Tobacco: Never Smokeless Tobacco: Never Alcohol Use Standard Drinks/Week Comments Yes 0 (1 standard drink = 0.6 oz pur e alcohol) Comments No Sex and Gender Information Value Date Recorded Sex Assigned at Not on file Legal Sex Female 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 trachomatis RNA Not Detected Not Detected [facility] N. gonorrhoeae RNA Not Detected Not Detected [facility] Swab 04/22/2018 1:12 PM CDT 04/23/2018 8:34 AM CDT Narrative [facility] - 04/26/2018 11:47 AM CDT us Nesha Kramer MD LAB BLOOD ORDERABLES Final Result [facility] [address] Department [place] [address] documented in this encounter Visit Diagnoses Not on filedocumented in this encounter Care Teams Turner Machine Relationship Specialty Start Date End Date Physician, DollyecMD nuzhat PCP - General Pediatrics 06/02/17 11/11/18 documented as of this encounter
--- OUTSIDE RECORDS SUMMARY | 2024-08-08 20:46 | XMS_ITS | Encounter Summary ---
Author Organization [facility] Address [address] [place] [address]. [place], [place] [address] [place] [address] Care Team Providers Care Spanish Literature Professor Name Role Phone Santa Ospina MD Primary Care Provider [phone] Reason for Visit * Reason Comments Mammogram (SCAN) Encounter Details Date Type Department Care Team (Late Contact Info) Description 06/12/2023 Scan HEALTH INFO [facility] Scanned, Doc Med Group Mammogram (SCAN) Social History Tobacco Use Types Packs/Day [...] Upcoming Encounters Date Type Department Care Team ([facility] Contact Info) Description 09/12/2024 3:40 PM CONCRETE FOREMAN Office Visit [facility] - [place] [address] [address] [place], [place] [id number] Santa Ospina MD [address] [place] [address] [address] [place], [place] [id number] documented as of this encounter Procedures Procedure Name Priority Date/Time Associated Diagnosis Comments MAMMOGRAM GENERIC (SCAN ORDER) 06/12/2023 documented in this encounter Results * MAMMOGRAM GENERIC (06/12/2023) Anatomical Region Laterality Modality Other 06/12/2023 us Doc Med Group Scanned SCANNING Final Resu lt documented in this encounter Visit Diagnoses Not on filedocumented in this encounter Additional Health Concerns Assessment Noted Time PHQ-9 Depression Total Score: 4 06/05/20 23 2:55 PM CDT documented as of this encounter Care Teams Spanish Literature Professor Relationship Specialty Start Date End Date Santa Ospina MD [address] [address] PCP - General INTERNAL MEDICINE 12/22/22 documented as of this encounter
--- OUTSIDE RECORDS SUMMARY | 2024-08-08 20:46 | XMS_ITS | Referral Summary ---
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 Gender Identity Not on file Sexual Orientation Not on file Last Filed Vital Signs Vital Sign Reading Time Taken Comments Blood Pressure 119/78 09/01/2020 1:34 PM STORAGE BATTERY INSPECTOR Pulse 67 09/01/2020 1:34 PM STORAGE BATTERY INSPECTOR Temperature 37.1 ??C (98.8 ??F) 09/01/2020 1:34 PM CS T Respiratory Rate - - Oxygen Saturation 100% 09/01/2020 1:34 PM STORAGE BATTERY INSPECTOR Inhaled Oxygen Concentration - - Weight 88.5 kg (195 lb 1.8 oz) 09/01/2020 1:34 P M STORAGE BATTERY INSPECTOR Height 167.6 cm (5' 6 ) 09/01/2020 1:34 PM STORAGE BATTERY INSPECTOR Body Mass Index 31.49 09/01/2020 1:34 PM STORAGE BATTERY INSPECTOR Plan of Treatment Not on file Insurance [facility] PPO [facility] PPO [employer] PPO Care Teams Banking And Finance Instructor Relationship Specialty Start Date End Date Malgorzata Trevino MD PCP - General Internal Medicine 12/27/19
--- OUTSIDE RECORDS SUMMARY | 2024-08-08 20:47 | XMS_ITS | Encounter Summary ---
Author Organization [facility] Healthcare Address [address] [place] [address] Care Team Providers Care Senior Web Engineer Name Role Phone Physician, Undecided MD Primary Care Provider Un available Encounter Details Date Type Department Care Team (Late st Contact Info) Description 06/29/2017 7:07 PM MANAGER SUPPLIER - 06/29/2017 11:59 PM MANAGER SUPPLIER Hospital Encounter [facility] [phone] Nesha Kramer MD [address] [address] Discharge Disposition: Discharge to home or self care Social History Tobacco Use Types Packs/Day Years Used Date Smoking Tobacco: Never Alcohol Use Standard Drinks/Week Comments Yes 0 (1 standard drink = 0.6 oz pur e alcohol) Comments No Sex and Gender Information Value Date Recorded Sex Assigned at Not on file Legal Sex Female 11:11 AM MANAGER SUPPLIER Gender Identity Not on file Sexual Orientation Not on file documented as of this encounter Medications at Time of Discharge fluconazole (DIFLUCAN) 150 mg tablet Take 1 po now then Repeat on day 4. 2 tablet 06/29/2017 metroNIDAZOLE (METROGEL) 0.75 % vaginal gelIndications:B acterial Vaginosis Apply vaginally every night for 5 nights. 70 g 06/29/2017 7 valACYclovir (VALTREX) 500 mg tablet Take 1 tablet (500 mg total) by mouth 2 (two) times a day. 60 tablet 11 06/29/2017 0 documented as of this encounter Discharge Disposition Disposition Code Departure Means Destination Discharge to home or self care documented in this encounter Plan of Treatment Not on file documented as of this encounter Procedures Procedure Name Priority Date/Time Associated Diagnosis Comments CYTOLOGY Routine 06/29/2017 2:29 PM MANAGER SUPPLIER CYTOLOGY 06/29/2017 12:00 AM MANAGER SUPPLIER documented in this encounter Results * Cytology (06/29/2017 2:29 PM MANAGER SUPPLIER) 06/29/2017 2:29 PM MANAGER SUPPLIER 06/29/2017 8:05 PM MANAGER SUPPLIER Narrative 06/30/2017 2:43 PM MANAGER SUPPLIER [address] ??[address] Tele: ?? Jeanine Ro MD - Family And Marriage Counsellor ?? Charli Isaac - Hot Press Operator CYTOLOGY REPORT Patient Name: CARMELINA WALL Address: [address] [place] [address] Service: Laboratory ??[place] [address] Location: Lab Taken: 06/29/2017 Gender: F Received 06/29/2017 : 1970 (Age: 47) [facility] #: [id number] Reported: 06/30/2017 ?? Patient Type: MB Ref Lab Physician(s): CAROLINE Ball M.D. ?? FINAL DIAGNOSIS: Specimen Type: ? - Cervical/Endocervical ThinPrep Pap Test Statement of Specimen Adequacy: ?- Satisfactory for interpretation ?- Endocervical/Transformation zone component absent or insufficient ?- Case screened using computer assisted imaging technology General Categorization: ?- Negative for intraepithelial lesion or malignancy Interpretation: ?- Shift in kendal suggestive of Bacterial Vaginosis ?- Specimen sent for HPV testing per physician order; ??Report to follow jx/06/30/2017 14:43 Bernadette Webster, CT (ASCP) ?? Report Reviewed and Electronically Signed By ??Bernadette Webster CT (ASCP) Clerical Data Follow A; [id number] ADDENDA: Addendum Comment ? HPV High Risk Group Other* *(HPV Types 31, 33, 35, 39, 45, 51, 52, 56, 58, 59, 66 and 68) In Range: ? Not Detected Out of Range: ? Reference Range: ? Not Detected HPV Genotype 16 ? In Range: ? Not Detected Out of Range: ? Reference Range: ? Not Detected HPV Genotype 18 ? In Range: ? Not Detected Out of Range: ? Reference Range: ? Not Detected This test was performed using the JOSEY 48[address] BRIAN Hoyt (ASCP) ? Date Ordered: ? 06/30/2017 ? Status: ??Signed Out ?Date Complete: ? 06/30/2017 ? By: ??Bernadette Webster CT (ASCP) ?Date Reported: ? 06/30/2017 ? CLINICAL DIAGNOSIS AND HISTORY Last Menstrual Period: 06-20-17 REPORT IMAGES AND/OR SCANNED DOUCMENTS ONLY VIEWABLE IN PDF FORMAT The Pap test is a screening test used to aid in the detection of cervical cancer and its precursors. It should not be the sole means by which malignant and premalignant lesions are diagnosed. ??Both false negative and false positive results may occur. ??It also has poor sensitivity for the detection of endometrial lesions and should not be used to evaluate suspected endometrial abnormalities. ??For these reasons it is most important to obtain Pap tests at regular intervals, as recommended by your physician or nurse practitioner. us Betty Victor [facility] FORMER LAB CYTOLOGY ORDERABLES Fin al Result * CYTOLOGY (06/29/2017 12:00 AM MANAGER SUPPLIER) Narrative 06/29/2017 12:00 AM MANAGER SUPPLIER Ordered by an unspecified provider. us Historical Provider LAB CYTOLOGY ORDERABLES F inal Result documented in this encounter Visit Diagnoses Not on filedocumented in this encounter Care Teams Senior Web Engineer Relationship Specialty Start Date End Date Physician, Undecided, PCP - General Pediatrics 06/02/17 11/11/18 documented as of this encounter
--- OUTSIDE RECORDS SUMMARY | 2024-08-08 20:47 | XMS_ITS | Encounter Summary ---
Author Organization [facility] Medical Group Address [address] [facility] [address] [place] [address] Care Team Providers Care Area Plant Manager Name Role Phone PhysicianBolivar MD Primary Care Provider Un available Encounter Details Date Type Department Care Team (Late st Contact Info) Description 06/30/2017 Telephone OBGYN [facility] [address] [facility] [address] [place] [address] Betty Victor NP [address] [place] [address] [address] [place], [place] [id number] Social History Tobacco Use Types Packs/Day Years Used Date Smoking Tobacco: Never Smokeless Tobacco: Never Alcohol Use Standard Drinks/Week Comments Yes 0 (1 standard drink = 0.6 oz pur e alcohol) Comments No Sex and Gender Information Value Date Recorded Sex Assigned at Not on file Legal Sex Female 11:11 AM 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 Pt was treated for this at her visit EFACTION AND REGASIFICATION HELPER documented in this encounter Plan of Treatment Not on file documented as of this encounter Visit Diagnoses Not on filedocumented in this encounter Care Teams Area Plant Manager Relationship Specialty Start Date End Date Bolivar Mejia MD PCP - General Pediatrics 06/02/17 11/11/18 documented as of this encounter
--- OUTSIDE RECORDS SUMMARY | 2024-08-08 20:47 | XMS_ITS | Encounter Summary ---
Author Organization [facility] Address [address] [place] [address] Care Team Providers Care Vending Machine Operator Name Role Phone Physician, Undecided MD Primary Care Provider Un available Reason for Visit * Reason Comments Pelvic Pain Encounter Details Date Type Department Care Team (Late st Contact Info) Description 04/22/2018 10:30 AM CDT Office Visit [facility] [address] [place] [address] [address] [place] [address] Nesha Kramer MD [address] [place] [address] [address] [place] [address] Menorrhagia with regular cycle (Primary Dx); HSV (herpes simplex virus) anogenital infection; Abdominal bloating with cramps; Screen for sexually transmitted diseases Social History Tobacco Use Types Packs/Day Years Used Date Smoking Tobacco: Never Smokeless Tobacco: Never Alcohol Use Standard Drinks/Week Comments Yes 0 (1 standard drink = 0.6 oz pur e alcohol) Comments No Sex and Gender Information Value Date Recorded Sex Assigned at Not on file 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 Gender Identity Not on file Sexual Orientation Not on file documented as of this encounter Last Filed Vital Signs Vital Sign Reading Time Taken Comments Blood Pressure 110/72 04/22/2018 10:45 AM CDT Pulse - - Temperature - - Respiratory Rate - - Oxygen Saturation - - Inhaled Oxygen Concentration - - Weight 86.2 kg (190 lb) 04/22/2018 10:45 AM CDT Height 167.6 cm (5' 5.98 ) 04/22/2018 10:45 AM C DT Body Mass Index 30.68 04/22/2018 10:45 AM CDT documented in this encounter Patient Instructions * Patient Instructions* Nesha Kramer MD - 04/22/2018 10:30 AM CDT Please Schedule an u/s for pelvic pain and Bloating 3 month appt for annual documented in this encounter Progress Notes * Nesha Kramer MD - 04/22/2018 10:30 AM CDT See notes * Nesha Kramer MD - 04/22/2018 12:00 AM CDT She presents as a 48-year-old, 3, para 3, who is presenting for pelvic pain. Her yearly is not due until the end of June. She did have a Pap smear last year that was normal and was negative for HPV, so we do not need to do another one at this time. She is on Lo Loestrin for hot flashes and perimenopausal symptoms. It was also helping with heavy periods and this was definitely helpful for her. Eventually, we can check for menopause a little bit later. She has been having some abdominal pain for 2 weeks and noticed some dyspareunia. She is also noticing some air from the vagina and increased gassiness overall. So, the cramps seem to be worse with Lo Loestrin, but her bleeds are better and without it they were using condoms and withdrawal. So she was on the pills and then off thepills off and on again. This may be doing something with her pelvis, maybe some cysts that are forming. We will get an ultrasound if the pain is still presents. She did have some tenderness on exam. Slight cervical motion tenderness, but no vaginal discharge. No CVA tenderness bilaterally. Gonorrhea, chlamydia culture was obtained just to make sure that it is not low- grade PID. There is no obvious sign of infection. She will see if the pain improves with the control pill. Ultrasound is pending. This could be bowel related as well. We talked about lactose intolerance and gluten sensitivity. She has herpes and is on Valtrex only as needed to control outbreaks and has not had one for a while. She was recommended to go back on vitamin D. Her weight is still very high. She stated she went on a cruise in January and has not lost it since then and is encouraged to do so. Her annualexamination is going to be for the end of June. Will see if this pain improves. She could also go continuously on the Lo Loestrin to see if that helps any discomfort and ultrasound is pending. Job ID/VF Job ID: [id number] documented in this encounter Miscellaneous Notes * Addendum Note - Mackenzie Issa MA - 04/22/2018 10:30 AM CDTAddended by: MACKENZIE ISSA on: 04/22/2018 01:13 PM Modules accepted: Orders * Addendum Note - Mackenzie Issa MA - 04/22/2018 10:30 AM CDTAddended by: MACKENZIE ISSA on: 04/22/2018 01:13 PM Modules accepted: Orders documented in this encounter Plan of Treatment Not on file documented as of this encounter Visit Diagnoses Diagnosis Menorrhagia with regular cycle- Primary HSV (herpes simplex virus) anogenital infection Herpes simplex without mention of complication Abdominal bloating with cramps Screen for sexually transmitted diseases Screening examination for venereal disease documented in this encounter Care Teams Vending Machine Operator Relationship Specialty Start Date End Date PhysicianBolivar MD PCP - General Pediatrics 06/02/17 11/11/18 documented as of this encounter
--- OUTSIDE RECORDS SUMMARY | 2024-08-08 20:47 | XMS_ITS | Encounter Summary ---
Author Organization [facility] Address [address] [place] [address] Care Team Providers Care Melangeur Operator Name Role Phone PhysicianBolivar MD Primary Care Provider Un available Encounter Details Date Type Department Care Team (Late st Contact Info) Description 07/30/2017 [facility] Only [facility] [address] [place] [address] Maria Leonard MA Social History Tobacco Use Types Packs/Day Years Used Date Smoking Tobacco: Never Smokeless Tobacco: Never Alcohol Use Standard Drinks/Week Comments Yes 0 (1 standard drink = 0.6 oz pur e alcohol) Comments No Sex and Gender Information Value Date Recorded Sex Assigned at Not on file 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
--- OUTSIDE RECORDS SUMMARY | 2024-08-08 20:47 | XMS_ITS | Encounter Summary ---
Author Organization [facility] Address [address] [place] [address] Care Team Providers Care Building Service Worker Name Role Phone Physician, Undecided MD Primary Care Provider Un available Encounter Details Date Type Department Care Team (Late st Contact Info) Description 02/15/2018 Telephone OBGYN [facility] [address] [place] [address] [address] [place] [address] Nesha Kramer MD [address] [place] [address] [address] [place], [place] [id number] Social History Tobacco Use Types Packs/Day Years Used Date Smoking Tobacco: Never Smokeless Tobacco: Never Alcohol Use Standard Drinks/Week Comments Yes 0 (1 standard drink = 0.6 oz pur e alcohol) Comments No Sex and Gender Information Value Date Recorded Sex Assigned at Not on file 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 She can have 2 packs at this time until she can get us of level or 2 * Telephone Encounter - Karina Pringle - 02/15/2018 3:34 PM CDT Pt is calling in to get a refill of Lo Loestrin. She says her blood pressure feels like it has improved when being on her control. Pts pharmacy on file is correct. Please advise, Thank You! pts #[phone] documented in this encounter Plan of Treatment Not on file documented as of this encounter Visit Diagnoses Not on filedocumented in this encounter Care Teams Building Service Worker Relationship Specialty Start Date End Date Physician, UndecidedMD PCP - General Pediatrics 06/02/17 11/11/18 documented as of this encounter
--- OUTSIDE RECORDS SUMMARY | 2024-08-08 20:47 | XMS_ITS | Encounter Summary ---
Author Organization [facility] Address [address] [place] [address] Care Team Providers Care Talent Solutions Manager Name Role Phone PhysicianBolivar MD Primary Care Provider Un available Reason for Visit * Reason Onset Date Comments medical question 03/31/2018 Encounter Details Date Type Department Care Team (Late st Contact Info) Description 03/31/2018 Telephone OBGYN [address] [place] [address] Val Chua medical question Social History Tobacco Use Types Packs/Day Years Used Date Smoking Tobacco: Never Smokeless Tobacco: Never Alcohol Use Standard Drinks/Week Comments Yes 0 (1 standard drink = 0.6 oz pur e alcohol) Comments No Sex and Gender Information Value Date Recorded Sex Assigned at Not on file 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 Pt was directed to start her pill on a Thursday anduse backup control for 1 month. Pt voiced understanding. documented in this encounter Plan of Treatment Not on file documented as of this encounter Visit Diagnoses Not on filedocumented in this encounter Care Teams Talent Solutions Manager Relationship Specialty Start Date End Date PhysicianBolivar MD PCP - General Pediatrics 10/31/17 4/11/19 documented as of this encounter
--- OUTSIDE RECORDS SUMMARY | 2024-08-08 20:47 | XMS_ITS | Encounter Summary ---
Author Organization [facility] Address [address] [place] [address] Care Team Providers Care Sewer Pipe Press Operator Name Role Phone Physician, Undecided MD Primary Care Provider Un available Encounter Details Date Type Department Care Team (Late st Contact Info) Description 01/20/2018 Telephone OBGYN [facility] [address] [place] [address] [address] [place] [address] Nesha Kramer MD [address] [place] [address] [address] [place], [place] [id number] Social History Tobacco Use Types Packs/Day Years Used Date Smoking Tobacco: Never Smokeless Tobacco: Never Alcohol Use Standard Drinks/Week Comments Yes 0 (1 standard drink = 0.6 oz pur e alcohol) Comments No Sex and Gender Information Value Date Recorded Sex Assigned at Not on file Legal Sex Female 11:11 AM CABLE 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 28 tablet 2 01/21/2018 02/15/2018 documented in this encounter Miscellaneous Notes * Telephone Encounter - Rafia Trinh RN - 01/21/2018 3:33 PM CDT Patient aware. erx to [facility]. * Telephone Encounter - Nesha Kramer MD - 01/20/2018 4:38 PM CDT Lo Loestrin 1 p.o. q.d. 3. Packs and 0 refills. Please have her check her blood pressure to make sure that it is not elevated as control pills can cause a higher blood pressure * Telephone Encounter - Katy Walter - 01/20/2018 12:54 PM CDT PT called and see saw Betty as a new PT back in Jun 2017 I did put her on your schedule for 03-31-2018. She is wanting to get on a low dose BCP. She is having heavy Periods She is feels the she is going that she is going for pre menopause and she has put and weight and doesn't want something that will put on weight. Her last period was 12-26-2017. She was start again 01-25-2018. A friend recommended Loestrin. Please advise. Call back number is [phone] documented in this encounter Plan of Treatment Not on file documented as of this encounter Visit Diagnoses Not on filedocumented in this encounter Care Teams Sewer Pipe Press Operator Relationship Specialty Start Date End Date Bolivar Mejia MD PCP - General Pediatrics 06/02/17 11/11/18 documented as of this encounter
--- OUTSIDE RECORDS SUMMARY | 2024-08-08 20:47 | XMS_ITS | Encounter Summary ---
Author Organization [facility] Address [address] [place] [address] Care Team Providers Care Bellhop Name Role Phone Physician, Undecided MD Primary Care Provider Un available Reason for Visit * Reason Comments Vaginal Discharge odor Encounter Details Date Type Department Care Team (Late st Contact Info) Description 06/29/2017 1:30 PM INDUSTRIAL DESIGN ENGINEER Office Visit [facility] [address] [place] [address] Betty Victor NP [address] [place] [address] Wellness examination (Primary Dx); Screening for multiple conditions; Vitamin D deficiency; Encounter for gynecological examination without abnormal finding; Bacterial vaginosis; Vaginal yeast infection Social History Tobacco Use Types Packs/Day Years Used Date Smoking Tobacco: Never Smokeless Tobacco: Never Alcohol Use Standard Drinks/Week Comments Yes 0 (1 standard drink = 0.6 oz pur e alcohol) Comments No Sex and Gender Information Value Date Recorded Sex Assigned at Not on file Legal Sex Female 11:11 AM INDUSTRIAL DESIGN ENGINEER Gender Identity Not on file Sexual Orientation Not on file documented as of this encounter Last Filed Vital Signs Vital Sign Reading Time Taken Comments Blood Pressure 118/76 06/29/2017 1:18 PM INDUSTRIAL DESIGN ENGINEER Pulse - - Temperature - - Respiratory Rate - - Oxygen Saturation - - Inhaled Oxygen Concentration - - Weight 81.2 kg (179 lb) 06/29/2017 1:18 PM INDUSTRIAL DESIGN ENGINEER Height 167.6 cm (5' 6 ) 06/29/2017 1:18 PM INDUSTRIAL DESIGN ENGINEER Body Mass Index 28.89 06/29/2017 1:18 PM INDUSTRIAL DESIGN ENGINEER documented in this encounter Patient Instructions * Patient Instructions* Betty Victor NP - 06/29/2017 1:30 PM INDUSTRIAL DESIGN ENGINEER Take the medication as prescribed. Follow good hygiene habits. Start a multivitamin and probiotic. Do monthly breast self exams. Schedule a screening mammography. Continue regular exercise and eatinghealthy. Continue vitamin D supplementation and get calcium through your diet. STRIAL DESIGN ENGINEER documented in this encounter Ordered Prescriptions Prescription Sig Dispense Quantity Refills Last Filled Start Date End Date fluconazole (DIFLUCAN) 150 mg tablet Take 1 po now then Repeat on day 4. 2 tablet 06/29/2017 metroNIDAZOLE (METROGEL) 0.75 % vaginal gelIndications:Parth terial Vaginosis Apply vaginally every night for 5 nights. 70 g 06/29/2017 7 valACYclovir (VALTREX) 500 mg tablet Take 1 tablet (500 mg total) by mouth 2 (two) times a day. 60 tablet 11 06/29/2017 0 documented in this encounter Progress Notes * Betty Victor NP - 06/29/2017 1:30 PM CST Subjective/Objective Patient ID: Carmelina Wall is a 47 y.o. female. Chief Complaint Vaginal Discharge (odor) Patient is a 47-year-old new patient to the office who was referred by Nila Blount. She will be a Dr. Kramer patient. She reports that she has noticed a vaginal odor for about 4 weeks now. In therecent past she has been prescribed both Flagyl and Diflucan for similar symptoms. She did notice aslight improvement in symptoms but then they came right back. She is not having any itching or burning in the vaginal area. She does use Dove soap. She has not changed sexual partners nor her hygienehabits recently. She has been under a lot of stress due to job changes over the last several months. She is getting monthly periods and they are coming about every 22-23 days apart they are about 5 days long with moderate flow. She does get lower back pain right before her menses starts but does not have significant menstrual cramps with her cycles. In the past her cycles were a lot heavier. She does occasionally wake up feeling warm and also wake up in the middle of the night due to stressors.She denies having any hot flashes or night sweats. She also has a history of genital HSV and has had more frequent outbreaks recently due to her stress. She does take Valtrex for outbreaks and has also done suppressive therapy daily in the past. Her and her use withdrawal for control and sometimes condoms. She denies having any pain or dryness with intercourse. She is not taking anyother medications currently or supplements. She has recently decided to increase her exercise and make that more routine so she is going to the gym. She does not have an target man and has not had screening labs in several years. Her last screening mammography was around 2 years ago and [facility] [place] [place]. She has had normal Pap smears in the past and last had a Pap smear 1-2 years ago. She has no GI or concerns. She reports that her vitamin-Dhas been low in the past and she needs to get back on taking supplementation. Allergies: None Medications: Valtrex 500 mg daily or twice daily when she has outbreaks x3 days. Past medical history: HSV Past surgical history: Umbilical hernia repair in 2016. OBGYN history: Significant for menarche at the age of 14. See above for menses history. She has no history of breast problems in the past and last had a screening mammography 2 years ago. 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 Her does not have this when last checked. She has a history of Chlamydia and Trichomonas in college which was treated. She has no history of abnormal Pap smears today and last had a Pap smear roughly 1-2 years ago. She had a spontaneous vaginal delivery in 1989 of a baby boy full-term 7 lb 14 oz and he was born in [place]. Spontaneous vaginal delivery in 1994 full term of a 9 lb 3 oz baby boy. Spontaneous vaginal delivery in 2002 of a full-term baby boy 7 lb 3 oz. Her last 2 children were born in [place], [place]. Family History: Significant for father with diabetes. Mom with hypertension. Her mom did have a blood clot in her leg and was on blood thinners. She reports no history of clotting disorders in the family and she has no personal history of DVT or Pe. She has 1 sister and 2 brothers who are both healthy and living. Both of her parents are living. Her children are healthy. 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 She is with 3 boys, 2 in college and one in highschool. She does not smoke nor does she consume caffeine. She consumes alcohol socially around the holidays. She denies a history of illicit drug usage. She goes to the gym several times per week for exercise. Review of Systems Constitutional: Negative for chills, fatigue and fever. Respiratory: Negative for shortness of breath. Cardiovascular: Negative for chest pain. Gastrointestinal: Negative for abdominal pain, constipation and diarrhea. Endocrine: Negative for cold intolerance and heat intolerance. Genitourinary: Negative for dyspareunia, dysuria, frequency, menstrual problem, pelvic pain, urgency and vaginal discharge. Vaginal odor Musculoskeletal: Negative for back pain. Skin: Negative for color change and rash. Psychiatric/Behavioral: Positive for sleep disturbance. Negative for dysphoric mood and suicidal ideas. The patient is not nervous/anxious. Breast: Negative for tenderness, breast redness, breast discharge and lump(s). Physical Exam Constitutional: She is oriented to person, place, and time. She appears well- developed and well-nourished. Normal blood pressure Genitourinary: Pelvic exam was performed with patient supine. Rectum normal and uterus normal. Right labia: normal. Left Labia: normal. No tenderness in the vagina. Vaginal discharge found. Right adnexa normal. Left adnexa normal. Cervix: Normal exam. Cervix: motion tenderness. Uterus is not enlarged, tender or exhibiting a mass. Genitourinary Comments: Minimal white discharge in the vault, wet mount performed and not to show both clue cells, and yeast, negative for trichomonas, rbcs, wbcs, Pap obtained and pending with HR HPV testing Right inguinal canal: normal. Left inguinal canal: normal. HENT: Head: Normocephalic. Eyes: Pupils are equal, round, and reactive to light. Neck: Normal range of motion. Cardiovascular: Normal rate, regular rhythm and normal heart sounds. Pulmonary/Chest: Effort normal and breath sounds normal. Right breast exhibits no inverted nipple, no mass, no nipple discharge, no skin change and no tenderness. Left breast exhibits no inverted nipple, no mass, no nipple discharge, no skin change and no tenderness. Abdominal: Soft. Normal appearance. There is no tenderness. There is no rebound, no guarding and noCVA tenderness. Musculoskeletal: Normal range of motion. Right lower leg: She exhibits no swelling and no edema. Left lower leg: She exhibits no swelling and no edema. Lymphadenopathy: She has no cervical adenopathy. She has no axillary adenopathy. Neurological: She is alert and oriented to person, place, and time. Skin: Skin is warm, dry and intact. Capillary refill takes less than 2 seconds. Psychiatric: She has a normal mood and affect. Her speech is normal and behavior is normal. Judgment and thought content normal. Cognition and memory are normal. Vitals reviewed. Assessment/Plan Diagnoses and all orders for this visit: Wellness examination (Primary) - Cytology; Future Regular exercise, diet, and weight management discussed. Screening for multiple conditions - CBC with auto differential; Future - Lipid panel; Future - Comprehensive metabolic panel; Future - TSH; Future - Glucose, fasting; Future She is given a requisition to have labs done fasting. She is given names of internists through [facility] to get established with. Vitamin D deficiency - Vitamin D 25 hydroxy; Future She has been low in vitamin D in the past and for now is told to take 2,000iu daily over the counter. Further recommendations to be made based on her level. Calcium is encouraged through dietary supplementation. Encounter for gynecological examination without abnormal finding Annual visit. Pap obtained with HR HPV testing. If pap smear testing is normal she does not need repeat pap smear testing for 3-5 years based on guidelines. Screening mammography ordered and she is instructed to bring her prior films for comparison. She is told to do annual screening mammography. She is encouraged to exercise routinely Calcium and vitamin D supplementation recommended. She is to call if she has any worrisome vasomotor symptoms, vaginal dryness, mood concerns, or if she wants intervention for sleep. She feels her stressors are situational and are actually getting better. She is to call with irregular menses, heavy bleeding, frequent bleeding, prolonged bleeding or worrisome c ramping. She would need a thrombophilia panel before we could give her hormones as her mom had a blood clot but was on blood thinners. She will talk more with her mom about this. She is told to take a multivitamin daily. She is currently using withdrawal and condoms for contraception. She is told to contact us if she wants to consider another form of contraception which we discussed options briefly today. Her Valtrex is renewed. F/u on as needed, otherwise annually. Bacterial vaginosis We discussed causes for this, prevention, and vulvar care guidelines. She prefers a vaginal insert for treatment. She is given a handout on vulvar care guidelines. Probiotics encouraged. She is to abstain from intercourse with symptoms. She is to call if symptoms are not improving or continue to reoccur. Vaginal yeast infection Diet discussed and hygiene habits. See above. She is prescribed Diflucan. See below. She is to callwith further concerns. Other orders - valACYclovir (VALTREX) 500 mg tablet; Take 1 tablet (500 mg total) by mouth 2 (two) times a day. - metroNIDAZOLE (METROGEL) 0.75 % vaginal gel; Apply vaginally every night for 5 nights. - fluconazole (DIFLUCAN) 150 mg tablet; Take 1 po now then Repeat on day 4. STRIAL DESIGN ENGINEER * Nesha Kramer MD - 06/29/2017 1:30 PM CST Nurse practitioner's note reviewed. STRIAL DESIGN ENGINEER * Maria Leonard MA - 06/29/2017 1:30 PM CST Tried to call patient the number has been disconnected. STRIAL DESIGN ENGINEER documented in this encounter Plan of Treatment Scheduled Orders Name Type Priority Associated Diagnoses Orde r Schedule Lipid panel Lab Routine Screening for multiple conditions Expected: 06/29/2017, Expires: 06/29/2018 Cytology Pathology and Cytology Routine Wellness examination 1 Occurrences starting 06/29/2017 until 06/29/2018 documented as of this encounter Procedures Procedure Name Priority Date/Time Associated Diagnosis Comments CHOL/HDLC RATIO Routine 08/05/2017 11:46 AM INDUSTRIAL DESIGN ENGINEER LDL-CHOLESTEROL Routine 08/05/2017 11:46 AM INDUSTRIAL DESIGN ENGINEER NON HDL CHOLESTEROL Routine 08/05/2017 1 1:46 AM INDUSTRIAL DESIGN ENGINEER CBC WITH AUTO DIFFERENTIAL Routine 08/05/2017 11:46 AM INDUSTRIAL DESIGN ENGINEER Screening for multiple conditions VITAMIN D 25 HYDROXY Routine 08/05/2017 11:46 AM INDUSTRIAL DESIGN ENGINEER Vitamin D deficiency TRIGLYCERIDES Routine 08/05/2017 11:46 AM INDUSTRIAL DESIGN ENGINEER TSH Routine 08/05/2017 11:46 AM INDUSTRIAL DESIGN ENGINEER Screening for multiple conditions CHOLESTEROL, HDL Routine 08/05/2017 11:4 6 AM INDUSTRIAL DESIGN ENGINEER CHOLESTEROL, TOTAL Routine 08/05/2017 11 :46 AM INDUSTRIAL DESIGN ENGINEER COMPREHENSIVE METABOLIC PANEL Routine 08/05/2017 11:46 AM INDUSTRIAL DESIGN ENGINEER Screening for multiple conditions GLUCOSE, FASTING Routine 08/05/2017 11:4 5 AM INDUSTRIAL DESIGN ENGINEER Screening for multiple conditions POCT WET PREP Routine 06/29/2017 2:00 PM INDUSTRIAL DESIGN ENGINEER Bacterial vaginosis Vaginal yeast infection documented in this encounter Results * (ABNORMAL) NON HDL CHOLESTEROL (08/05/2017 11:46 AM INDUSTRIAL DESIGN ENGINEER) Non-HDL, (LDL+VLDL) 131(H) <130 mg/dL (calc) [facility] [place] Comment: For patients with diabetes plus 1 major ASCVD risk factor, treating to a non-HDL-C goal of <100 mg/dL (LDL-C of <70 mg/dL) is considered a therapeutic option. 08/05/2017 11:4 6 AM INDUSTRIAL DESIGN ENGINEER 08/05/2017 11:47 AM INDUSTRIAL DESIGN ENGINEER Narrative [facility] - 08/06/2017 4:41 AM INDUSTRIAL DESIGN ENGINEER FASTING:NO FASTING: NO Resulting Agency Comment Performing Organization Information: ?Site ID: [facility] ?Name: Moe Jaimes ?Address: [id number] [phone] ?Director: Andrzej Rosales D.O., MPH us Betty Victor FINANCIAL AID OFFICER LAB BLOOD ORDERABLES Final Result Performing Organization Address [facility] de Phone Number [facility] [place] * CHOL/HDLC RATIO (08/05/2017 11:46 AM INDUSTRIAL DESIGN ENGINEER) Chol/HDL ratio 3.6 <5.0 (calc) [facility] 08/05/2017 11:4 6 AM INDUSTRIAL DESIGN ENGINEER 08/05/2017 11:47 AM INDUSTRIAL DESIGN ENGINEER Narrative [facility] - 08/06/2017 4:41 AM INDUSTRIAL DESIGN ENGINEER FASTING:NO FASTING: NO Resulting Agency Comment Performing Organization Information: ?Site ID: [facility] ?Name: Moe Jaimes ?Address: [facility] [address] [phone] ?Director: Andrzej Rosales D.O., MPH Betty Victor NP LAB BLOOD ORDERABLES Final Result Performing Organization Address [facility] Phone Number [facility] [place] * (ABNORMAL) LDL-Cholesterol (08/05/2017 11:46 AM INDUSTRIAL DESIGN ENGINEER) LDL 116(H) mg/dL (calc) [facility] Comment: Reference range: <100 Desirable range <100 mg/dL for patients with CHD or diabetes and <70 mg/dL for diabetic patients with known heart disease. LDL-C is now calculated using the Niel calculation, which is a validated novel method providing better accuracy than the Friedewald equation in the estimation of LDL-C. Fabiano SS et al. ADAM. 2013;310(19): 2825-9228 (http://education.Clipsure.Diagnosia/faq/JWA308) 08/05/2017 11:4 6 AM INDUSTRIAL DESIGN ENGINEER 08/05/2017 11:47 AM INDUSTRIAL DESIGN ENGINEER Narrative [facility] - 08/06/2017 4:41 AM INDUSTRIAL DESIGN ENGINEER FASTING:NO FASTING: NO Resulting Agency Comment Performing Organization Information: ?Site ID: [place] ?Name: [facility] ?Address: [facility] [address] [phone] ?Director: Andrzej Rosales D.O., MPH Betty Victor FINANCIAL AID OFFICER LAB BLOOD ORDERABLES Final Result Performing Organization Address City/[facility]/ZIP Co de Phone Number [facility] [place] * Triglycerides (08/05/2017 11:46 AM INDUSTRIAL DESIGN ENGINEER) Triglycerides 63 <150 mg/dL [facility] [place] 08/05/2017 11:4 6 AM INDUSTRIAL DESIGN ENGINEER 08/05/2017 11:47 AM INDUSTRIAL DESIGN ENGINEER Narrative [facility] - 08/06/2017 4:41 AM INDUSTRIAL DESIGN ENGINEER FASTING:NO FASTING: NO Resulting Agency Comment Performing Organization Information: ?Site ID: [place] ?Name: [facility] ?Address: [facility] [address] [phone] ?Director: Andrzej Rosales D.O., MPH Betty Victor FINANCIAL AID OFFICER LAB BLOOD ORDERABLES Final Result Performing Organization Address City/[facility] Co de Phone Number [facility] [place] * (ABNORMAL) Cholesterol, HDL (08/05/2017 11:46 AM INDUSTRIAL DESIGN ENGINEER) HDL 50(L) >50 mg/dL [facility] [place] 08/05/2017 11:4 6 AM INDUSTRIAL DESIGN ENGINEER 08/05/2017 11:47 AM INDUSTRIAL DESIGN ENGINEER Narrative [facility] - 08/06/2017 4:41 AM INDUSTRIAL DESIGN ENGINEER FASTING:NO FASTING: NO Resulting Agency Comment Performing Organization Information: ?Site ID: [place] ?Name: [facility] ?Address: [facility] [address] [phone] ?Director: Andrzej Rosales D.O., MPH us Betty Judycamrelina Victor FINANCIAL AID OFFICER LAB BLOOD ORDERABLES Final Result [facility] [place] * Cholesterol, total (08/05/2017 11:46 AM INDUSTRIAL DESIGN ENGINEER) Pathologist [facility] Cholesterol 181 <200 mg/dL [facility] 08/05/2017 11:4 6 AM INDUSTRIAL DESIGN ENGINEER 08/05/2017 11:47 AM INDUSTRIAL DESIGN ENGINEER Narrative [facility] - 08/06/2017 4:41 AM INDUSTRIAL DESIGN ENGINEER FASTING:NO FASTING: NO Resulting Agency Comment Performing Organization Information: ?Site ID: [place] ?Name: [facility] ?Address: [facility] [address] [phone] ?Director: Andrzej Rosales D.O., MPH Betty Judy Victor FINANCIAL AID OFFICER LAB BLOOD ORDERABLES Final Result Performing Organization Address [facility] Co de Phone Number [facility] [place] * Vitamin D 25 hydroxy (08/05/2017 11:46 AM INDUSTRIAL DESIGN ENGINEER) Pathologist [facility] Vitamin D 25-OH 30 30 - 100 ng/mL [facility] Comment: Vitamin D Status ? 25-OH Vitamin D: Deficiency: ?<20 ng/mL Insufficiency: ? 20 - 29 ng/mL Optimal: ? > or = 30 ng/mL For 25-OH Vitamin D testing on patients on D2-supplementation and patients for whom quantitation of D2 and D3 fractions is required, the QuestAssureD() 25-OH VIT D, (D2,D3), LC/MS/MS is recommended: order code 90548 (patients >2yrs). For more information on this test, go to: http://education.EventBug/faq/GFX541 (This link is being provided for informational/educational purposes only.) Blood specimen (specimen) 08/05/2017 11:46 AM INDUSTRIAL DESIGN ENGINEER 08/05/2017 11:47 AM INDUSTRIAL DESIGN ENGINEER Narrative [facility] - 08/06/2017 4:41 AM INDUSTRIAL DESIGN ENGINEER FASTING:NO FASTING: NO Resulting Agency Comment Performing Organization Information: ?Site ID: [place] ?Name: [facility] ?Address: [facility] [address] [phone] ?Director: Andrzej Rosales D.O. MPH Betty Victor FINANCIAL AID OFFICER LAB BLOOD ORDERABLES Final Result Performing Organization Address [facility] de Phone Number [facility] [place] * TSH (08/05/2017 11:46 AM INDUSTRIAL DESIGN ENGINEER) TSH 1.29 mIU/L [facility] [place] Comment: ?Reference Range ?> or = 20 Years ??0.40-4.50 ? Ranges ?First trimester ?0.26-2.66 ?Second trimester ?? 0.55-2.73 ?Third trimester ?0.43-2.91 Blood specimen (specimen) 08/05/2017 11:46 AM INDUSTRIAL DESIGN ENGINEER 08/05/2017 11:47 AM INDUSTRIAL DESIGN ENGINEER Narrative [facility] - 08/06/2017 4:41 AM INDUSTRIAL DESIGN ENGINEER FASTING:NO FASTING: NO Resulting Agency Comment Performing Organization Information: ?Site ID: [place] ?Name: [facility] ?Address: [facility] [address] [phone] ?Director: Andrzej Rosales D.O., MPH Betty Victor NP LAB BLOOD ORDERABLES Final Result Performing Organization Address [facility] de Phone Number [facility] [place] * Comprehensive metabolic panel (08/05/2017 11:46 AM INDUSTRIAL DESIGN ENGINEER) Glucose 86 65 - 99 mg/dL [facility] [place] Comment: ? Fasting reference interval BUN 13 7 - 25 mg/dL [facility] [place] Creatinine 0.92 0.50 - 1.10 mg/dL [facility] [place] eGFR NON-AFR. GUAMANIAN 75 > OR = 60 mL/min/1. 73m2 [facility] [place] EGFR 87 > OR = 60 mL/min/1. 73m2 [facility] [place] BUN/creat ratio NOT APPLICABLE 6 - 22 (calc) [facility] [place] Sodium 138 135 - 146 mmol/L [facility] [place] Potassium, pl 4.4 3.5 - 5.3 mmol/L [facility] [place] Chloride 104 98 - 110 mmol/L [facility] [place] CO2 28 20 - 31 mmol/L [facility] [place] Calcium 9.5 8.6 - 10.2 mg/dL [facility] [place] Protein, sr 7.6 6.1 - 8.1 g/dL [facility] [place] Albumin 4.5 3.6 - 5.1 g/dL [facility] [place] GLOBULIN 3.1 1.9 - 3.7 g/dL (calc) [facility] [place] Alb/glob ratio 1.5 1.0 - 2.5 (calc) [facility] [place] Bilirubin, total 0.7 0.2 - 1.2 mg/dL [facility] [place] Alk phos 51 33 - 115 U/L [facility] [place] AST 14 10 - 35 U/L [facility] [place] ALT (SGPT) 14 6 - 29 U/L [facility] [place] Blood specimen (specimen) 08/05/2017 11:46 AM INDUSTRIAL DESIGN ENGINEER 08/05/2017 11:47 AM INDUSTRIAL DESIGN ENGINEER Narrative [facility] - 08/06/2017 4:41 AM INDUSTRIAL DESIGN ENGINEER FASTING:NO FASTING: NO Resulting Agency Comment Performing Organization Information: ?Site ID: [place] ?Name: [facility] ?Address: [address] [phone] ?Director: Andrzej Rosales D.O., MPH us Betty Judy Victor FINANCIAL AID OFFICER LAB BLOOD ORDERABLES Final Result [facility] [place] Alicia * CBC with auto differential (08/05/2017 11:46 AM INDUSTRIAL DESIGN ENGINEER) WBC 6.1 3.8 - 10.8 Thousand/ uL [facility] [place] RBC, POC 4.21 3.80 - 5.10 Million/u L [facility] [place] Hgb 13.6 11.7 - 15.5 g/dL [facility] [place] Hct 41.2 35.0 - 45.0 % [facility] [place] MCV 97.9 80.0 - 100.0 fL [facility] [place] MCH 32.3 27.0 - 33.0 pg [facility] [place] MCHC 33.0 32.0 - 36.0 g/dL [facility] [place] Rdw 12.1 11.0 - 15.0 % [facility] [place] Platelets 272 140 - 400 Thousand/ uL [facility] [place] MPV 11.0 7.5 - 12.5 fL [facility] [place] Neutrophils, abs 3,270 1,500 - 7,800 cells/uL [facility] [place] Neutrophil bands, abs CANCELED 0 - 750 cells/uL [facility] [place] Comment:Result canceled by t he ancillary Metamyelocytes, abs CANCELED 0 cells/uL [facility] [place] Comment:Result canceled by t he ancillary Absolute Myelocytes CANCELED 0 cells/uL [facility] [place] Comment:Result canceled by t he ancillary Promyelocytes, abs CANCELED 0 cells/uL [facility] [place] Comment:Result canceled by t he ancillary Lymphocytes, abs 2,135 850 - 3,900 cells/uL [facility] [place] Monocyte abs 403 200 - 950 cells/uL [facility] [place] Eosinophils, abs 232 15 - 500 cells/uL [facility] [place] Basophils, abs 61 0 - 200 cells/uL [facility] [place] Blast, cell CANCELED 0 cells/uL [facility] [place] Comment:Result canceled by t he ancillary NRBC abs CANCELED 0 cells/uL [facility] [place] Comment:Result canceled by t he ancillary Neutrophils 53.6 % [facility] [place] Neutrophilic bands CANCELED % [facility] [place] Comment:Result canceled by t he ancillary Metamyelocyte pct CANCELED % [facility] [place] Comment:Result canceled by t he ancillary Myelocyte pct CANCELED % [facility] [place] Comment:Result canceled by t he ancillary Promyelocyte pct CANCELED % [facility] [place] Comment:Result canceled by t he ancillary Lymphocyte pct 35.0 % [facility] [place] Reactive lymph CANCELED 0 - 10 % [facility] [place] Comment:Result canceled by t he ancillary Monocytes 6.6 % [facility] [place] Eosinophils 3.8 % [facility] [place] Basophils 1.0 % [facility] [place] Blast pct CANCELED % [facility] [place] Comment:Result canceled by t he ancillary NRBC CANCELED 0 /100 WBC [facility] [place] Comment:Result canceled by t he ancillary Comment CANCELED [facility] [place] Comment:Result canceled by t he ancillary Blood specimen (specimen) 08/05/2017 11:46 AM INDUSTRIAL DESIGN ENGINEER 08/05/2017 11:47 AM INDUSTRIAL DESIGN ENGINEER Narrative [facility] - 08/06/2017 4:41 AM INDUSTRIAL DESIGN ENGINEER FASTING:NO FASTING: NO Resulting Agency Comment Performing Organization Information: ?Site ID: [place] ?Name: [email or web address] ?Address: [facility] [place] [address] ?Director: Andrzej Rosales D.O., MPH Betty Victor FINANCIAL AID OFFICER LAB BLOOD ORDERABLES Final Result [facility] [place] * Glucose, fasting (08/05/2017 11:45 AM INDUSTRIAL DESIGN ENGINEER) Glucose 79 65 - 99 mg/dL [facility] [place] Comment: ? Fasting reference interval Blood specimen (specimen) 08/05/2017 11:45 AM INDUSTRIAL DESIGN ENGINEER 08/05/2017 11:45 AM INDUSTRIAL DESIGN ENGINEER Narrative [facility] - 08/06/2017 4:36 AM INDUSTRIAL DESIGN ENGINEER FASTING:NO FASTING: NO Resulting Agency Comment Performing Organization Information: ?Site ID: [place] ?Name: [email or web address] ?Address: [address] [place] [address] ?Director: Andrzej Rosales D.O., MPH us Betty Victor FINANCIAL AID OFFICER LAB BLOOD ORDERABLES Final Result [facility] [place], [place] * (ABNORMAL) POCT WET PREP (06/29/2017 2:00 PM INDUSTRIAL DESIGN ENGINEER) Wet Prep, POC 1 Vaginal fluid 06/29/2017 2:0 0 PM INDUSTRIAL DESIGN ENGINEER us Betty Victor NP POINT OF CARE TEST ORDERABL ES Final Result documented in this encounter Visit Diagnoses Diagnosis Wellness examination- Primary Screening for multiple conditions Multiphasic screening Vitamin D deficiency Encounter for gynecological examination without abnormal finding Bacterial vaginosis Unspecified vaginitis and vulvovaginitis Vaginal yeast infection Candidiasis of vulva and vagina documented in this encounter Discontinued Medications Medication Sig Discontinue Reason Start Date End Da te valACYclovir (VALTREX) 500 mg tablet Take 500 mg by mouth 2 (two) times a day. Reorder 06/29/2017 documented as of this encounter Historical Medications * This list may reflect changes made after this encounter. valACYclovir (VALTREX) 500 mg tablet Take 500 mg by mouth 2 (two) times a day. 06/29/2017 added in this encounter Care Teams Bellhop Relationship Specialty Start Date End Date PhysicianBolivar MD PCP - General Pediatrics 06/02/17 11/11/18 documented as of this encounter
--- OUTSIDE RECORDS SUMMARY | 2024-08-08 20:47 | XMS_ITS | Encounter Summary ---
Author Organization [facility] Address [address] [place] [address] Care Team Providers Care Vaccine Customer Representative Name Role Phone Physician, Undecided MD Primary Care Provider Un available Encounter Details Date Type Department Care Team (Late st Contact Info) Description 08/06/2017 Telephone OBGYN [facility] [address] [place] [address] Betty Victor NP [address] [facility] [place], [place] [id number] Social History Tobacco Use Types Packs/Day Years Used Date Smoking Tobacco: Never Smokeless Tobacco: Never Alcohol Use Standard Drinks/Week Comments Yes 0 (1 standard drink = 0.6 oz pur e alcohol) Comments No Sex and Gender Information Value Date Recorded Sex Assigned at Not on file Legal Sex Female 11:11 AM AMBULANCE ATTENDANT Gender Identity Not on file Sexual Orientation Not on file documented as of this encounter Miscellaneous Notes * Telephone Encounter - Daniel Almonte - 08/07/2017 7:19 AM CST Letter sent, including a note that we need to reschedule mammogram on 08/17. LANCE ATTENDANT * Telephone Encounter - Betty Victor NP - 08/06/2017 1:10 PM AMBULANCE ATTENDANT Can we sent a letter to the patient with the below information. She was contacted but the number was disconnected. LANCE ATTENDANT * Telephone Encounter - Maria Leonard MA - 08/06/2017 12:42 PM AMBULANCE ATTENDANT Tried to call the patient with lab results but the number we have has been disconnected. LANCE ATTENDANT * Telephone Encounter - Betty Victor NP - 08/06/2017 11:23 AM AMBULANCE ATTENDANT Please let the patient know that overall her labs were normal. Total cholesterol was good. Her bad cholesterol or LDL was slightly elevated and good cholesterol or HDL was borderline low but her cholesterol ratio was still good. She should be physically active on a regular basis. She should limit saturated fats,high sodium or processed foods, and limit simple sugars through her diet. She should try to eat fruits and vegetables more, whole grains, and lean meat. Her thyroid level, metabolic panel, and CBC are normal. Her vitamin-D is borderline low at 30. Would recommend that she take 2000 international units of vitamin-D daily. Labs should be repeated in 1 year. Any further concerns let us know. LANCE ATTENDANT documented in this encounter Plan of Treatment Not on file documented as of this encounter Visit Diagnoses Not on filedocumented in this encounter Care Teams Vaccine Customer Representative Relationship Specialty Start Date End Date PhysicianBolivar MD PCP - General Pediatrics 06/02/17 11/11/18 documented as of this encounter
--- OUTSIDE RECORDS SUMMARY | 2024-08-08 20:47 | XMS_ITS | Encounter Summary ---
Author Organization [facility] Address [address] [place] [address] Care Team Providers Care Power Ballast Machine Operator Name Role Phone Physician, Undecided MD Primary Care Provider Un available Encounter Details Date Type Department Care Team (Late st Contact Info) Description 02/15/2018 Orders Only [facility] [address] [place] [address] [address] [place] [address] Nesha Kramer MD [address] [place] [address] [address] [place], [place] [id number] Social History Tobacco Use Types Packs/Day Years Used Date Smoking Tobacco: Never Smokeless Tobacco: Never Alcohol Use Standard Drinks/Week Comments Yes 0 (1 standard drink = 0.6 oz pur e alcohol) Comments No Sex and Gender Information Value Date Recorded Sex Assigned at Not on file Legal Sex Female 11:11 AM SENIOR TELECOMMUNICATIONS ENGINEER Gender Identity Not on file Sexual Orientation Not on file documented as of this encounter Ordered Prescriptions Prescription Sig Dispense Quantity Refills Last Filled Start Date End Date norethindrone-e.es tradiol-iron 1 mg-10 mcg (24)/10 mcg (2) tablet Take 1 tablet by mouth daily. 28 tablet 1 02/15/2018 04/30/2018 documented in this encounter Plan of Treatment Not on file documented as of this encounter Visit Diagnoses Not on filedocumented in this encounter Discontinued Medications Medication Sig Discontinue Reason Start Date End Da te norethindrone-e.estradio l-iron 1 mg-10 mcg (24)/10 mcg (2) tablet Take 1 tablet by mouth daily. Reorder 01/21/2018 02/15/2018 documented as of this encounter Care Teams Power Ballast Machine Operator Relationship Specialty Start Date End Date Physician, Undecided, PCP - General Pediatrics 06/02/17 11/11/18 documented as of this encounter
== END 2024-08-01 12:42 | disposition home or self-care (01) ==
PROVIDERS: Emergency Provider Physician Assistant; PCP Obstetrics & Gynecology
DX: J06.9 Acute upper respiratory infection, unspecified (principal); Z20.822 Contact with and (suspected) exposure to COVID-19
CPT/HCPCS: 71046; 87637; 99283

== ENCOUNTER 2025-03-09 13:05 | Emergency (ER) | payer OTHER, SELFPAY ==
[2025-03-09] VITALS (7 sets, daily range): BP systolic 104–119; BP diastolic 52–80; PULSE 74–87; RESP 16–18; TEMP 35.8–36.6; O2SAT 97–100
--- OUTSIDE RECORDS SUMMARY | 2025-03-09 13:12 | XMS_ITS | Clinical Summary ---
Author Organization [facility] Address [address] [place] [address] Care Team Providers Care Manager Studio Name Role Phone Santa Ospina MD Primary Care Provider [phone] Allergies No known active allergies Medications omeprazole (PRILOSEC) 40 MG capsuleIndicatio ns:Gastroesophag eal reflux disease without esophagitis Take 1 capsule (40 mg total) by mouth daily. 90 capsule 1 06/10/2024 Active valACYclovir (VALTREX) 1 g tabletIndication s:Herpes Take 1 tablet (1,000 mg total) by mouth 2 (two) times daily. 21 tablet 06/10/2024 Active Phentermine HCl 15 MG CapIndications:C lass 1 obesity due to excess calories with serious comorbidity and body mass index (BMI) of 30.0 to 30.9 in adult Take 15 mg by mouth daily with breakfast. 60 capsule 11/04/2024 Active topiramate (TOPAMAX) 100 MG tabletIndication s:Class 1 obesity due to excess calories with serious comorbidity and body mass index (BMI) of 30.0 to 30.9 in adult Take 1 tablet (100 mg total) by mouth 2 (two) times daily. 180 tablet 11/04/2024 Active Active Problems Problem Noted Date Diagnosed Date GERD (gastroesophageal reflux disease) Resolved Problems Problem Noted Date Diagnosed Date Resolved Date Screening for colon cancer 10/07/2023 0 10/12/2023 Encounters Date Type Department Care Team Description 03/03/2025 Telephone [facility] Multispecialty Care - [address] [place] [address] Santa Ospina MD Information from Last 3 Months Immunizations Immunization Administration Dates Next Due Fluzone (IIV3, Trivalent, [...] Date Recorded Patient Health Questionnaire-2 Score 0 09/12/2024 Comments Unknown Sex and Gender Information Value Date Recorded Sex Assigned at Female 09/12/2024 3:51 PM MEDICAL RECORDS TECHNICIAN Legal Sex Female 2:57 PM CDT Gender Identity Female 09/12/2024 3:51 PM MEDICAL RECORDS TECHNICIAN Sexual Orientation Straight 09/12/2024 3: 51 PM MEDICAL RECORDS TECHNICIAN Last Filed Vital Signs Vital Sign Reading Time Taken Comments Blood Pressure 122/84 11/04/2024 7:28 AM CDT Pulse 78 11/04/2024 7:28 AM CDT Temperature 35.7 C (96.3 F) 11/04/2024 7:28 AM CDT Respiratory Rate 16 11/04/2024 7:2 8 AM CDT Oxygen Saturation 98% 11/04/2024 7:28 AM CDT Inhaled Oxygen Concentration - - Weight 88.4 kg (194 lb 12.8 oz) 11/04/2024 7:28 AM CDT Height 170.2 cm (5' 7) 11/04/2024 7:28 AM CDT Body Mass Index 30.51 11/04/2024 7:28 AM CDT Plan of Treatment Upcoming Encounters Date Type Department Care Team (Late st Contact Info) Description 04/18/2025 4:20 PM CDT Office Visit [facility] Multispecialty Care - [place] [address] [place] [address] Santa Ospina MD [address] [facility] [facility] [address] [place] [address] Health Maintenance Due Date Last Done Comments Cervical Cancer Screening Pap Smear (Age 30 to 64) Every 3 Years 1971 Hepatitis B Vaccines (1 of 3 - 19+ 3-dose series) 1990 Pneumococcal Vaccine: 50+ Years (1 of 1 - PCV) 2021 Zoster Vaccines (1 of 2) 2021 COVID-19 Vaccine ( - season) 2024 07/03/2021, 01/28/2021, 01/04/2021 Annual Physical [...] Tdap) 06/10/2034 06/10/2024 Hepatitis C Completed 06/09/2023 PHQ-2 (Physician Alma) Completed 09/12/2024 Meningococcal B Vaccine Aged Out No l onger eligible based on patient's age to complete this topic Meningococcal Vaccine Aged Out No teja sona eligible based on patient's age to complete this topic RSV Immunizations Under 20 Months Aged Out No longer eligible based on patient's age to complete this topic Procedures Procedure Name Priority Date/Time Associated Diagnosis Comments MAMMOGRAM GENERIC (SCAN ORDER) 06/12/2023 HEPATITIS C ANTIBODY W/RFX TO HCV RNA Routine 06/09/2023 7:52 AM MEDICAL RECORDS TECHNICIAN OUTSIDE CYTOPATH CERV/VAG INTERPRET (PAP) 06/02/2023 from Last 3 Months or Most Recently Relevant to Health Maintenance Results * MAMMOGRAM GENERIC (06/12/2023) Anatomical Region Laterality Modality Other 06/12/2023 [employer] [facility] Scanned SCANNING Final Resu lt * HEPATITIS C ANTIBODY W/RFX TO HCV RNA (06/09/2023 7:52 AM MEDICAL RECORDS TECHNICIAN) HEPATITIS C AB NON-REACT MARK NON-REACT MARK [employer] [facility] Comment: HCV antibody was non-reactive. There is no laboratory evidence of HCV infection. In most cases, no further action is required. However, if recent HCV exposure is suspected, a test for HCV RNA (test code 76188) is suggested. For additional information please refer to http://education.Deal.com.sg/faq/OLV99j8 (This link is being provided for informational/ educational purposes only.) 06/09/2023 7:52 AM MEDICAL RECORDS TECHNICIAN 06/09/2023 7:54 AM MEDICAL RECORDS TECHNICIAN Narrative [employer] - DORENE ORDERS - 06/11/2023 10:35 AM MEDICAL RECORDS TECHNICIAN FASTING:YES FASTING: YES Resulting Agency Comment Performing Organization Information: Site ID: [place] Name: [facility] Address: [id number] [place] [id number] Director: Lucas Thapa MD Santa Ospina MD LABORATORY Final Result [employer] - DORENE AMI [employer] [facility] [id number] [place] [id number] * PAP SMEAR WITH HPV (06/02/2023) 06/02/2023 [employer] [facility] Scanned SCANNING Final Resu lt from Last 3 Months or Most Recently Relevant to Health Maintenance Insurance AETNA Care Teams Manager Studio Relationship Specialty Start Date End Date Santa Ospina MD [address] [place] [id number] PCP - General INTERNAL MEDICINE 12/22/22
--- OUTSIDE RECORDS SUMMARY | 2025-03-09 13:12 | XMS_ITS | Clinical Summary ---
Author Organization [facility] Address [address] [place] [address] Care Team Providers Care Cyber Crime Investigator Name Role Phone Malgorzata Trevino MD Primary [...] on file Legal Sex Female 11:11 AM FINISHER WALLBOARD AND PLASTERBOARD Gender Identity Not on file Sexual Orientation [...] Comments Blood Pressure 119/78 09/01/2020 1:34 PM FINISHER WALLBOARD AND PLASTERBOARD Pulse 67 09/01/2020 1:34 PM FINISHER WALLBOARD AND PLASTERBOARD Temperature 37.1 C (98.8 F) 09/01/2020 1:34 PM FINISHER WALLBOARD AND PLASTERBOARD Respiratory Rate - - Oxygen Saturation 100% 09/01/2020 1:34 PM FINISHER WALLBOARD AND PLASTERBOARD Inhaled Oxygen Concentration - - Weight 88.5 kg (195 lb 1.8 oz) 09/01/2020 1:34 P M FINISHER WALLBOARD AND PLASTERBOARD Height 167.6 cm (5' 6) 09/01/2020 1:34 PM FINISHER WALLBOARD AND PLASTERBOARD Body Mass Index 31.49 09/01/2020 1:34 PM FINISHER WALLBOARD AND PLASTERBOARD Plan of Treatment Not on file Insurance [facility]IAN [facility] TNA [facility] PPO [facility] PPO Care Teams Cyber Crime Investigator Relationship Specialty Start Date End Date Malgorzata Trevino MD PCP - General Internal Medicine 12/27/19
[2025-03-09 14:48] LABS: Hematocrit 42.4 % (37.0-47.0); Hemoglobin 14.2 g/dL (12.0-15.0); Immature Granulocyte Percent A 0.2 % (0-0.5); Lymphocytes Absolute Auto 2.42 K/mm3 (0.9-3.2); Mean Corpuscular HGB Conc 33.5 g/dl (32-36); Mean Corpuscular Hemoglobin 31.9 pg (26-34); Mean Corpuscular Volume 95.3 fl (80-100); Nucleated Red Blood Cells Absolute Auto 0.000 K/mm3 (0.0-0.012); Nucleated Red Blood Cells Perc 0.0 % (0.0-0.2); Platelet Count Result 312 k/mm3 (150-375); Red Blood Count 4.45 M/mm3 (4.2-5.4); White Blood Count 5.6 K/mm3 (4.5-10.0)
[2025-03-09 15:02] LABS: Alanine Aminotransferase 31 U/L (6-35); Albumin Level 4.2 g/dL (3.5-5.1); Alkaline Phosphatase 66 U/L (38-126); Anion Gap 11 mmol/L (4-12); Aspartate Amino Transferase 38 U/L (14-36); Bilirubin,Total 0.4 mg/dL (0.2-1.3); Blood Urea Nitrogen 8 mg/dL (7-17); Calcium 8.8 mg/dL (8.4-10.2); Carbon Dioxide 24 mmol/L (22-30); Chloride 106 mmol/L (98-107); Estimated CRCL calculation 73 ml/min; Estimated Glomerular Filt Rate > 60; Glucose 94 mg/dL (65-110); Lipase 119 U/L (23-300); Potassium 3.5 mmol/L (3.4-5.0); Sodium 141 mmol/L (137-145); Total Protein 7.8 g/dL (6.3-8.2)
[2025-03-09 15:07] LABS: Add Urine Microscopic? YES; Appearance Urine Cloudy (Clear); Glucose Urine UA Negative (Negative); Leukocyte Esterase Ur 3+ LEU/UL (Negative); Need Manual Microscopic Reviewed; Nitrate Urine Negative (Negative); Specific Grav Ur 1.022 (1.001-1.035)
[2025-03-09] MEDS: ONDANSETRON INJ 4 MG/2 ML VIAL IV PUSH (15:07)
[2025-03-09] MEDS: SODIUM CHLORIDE 0.9% IV 1,000 ML 999 ML IV CONT (15:07)
[2025-03-09 15:11] LABS: BEDSIDEPREGUCG Negative (Negative)
--- OUTSIDE RECORDS SUMMARY | 2025-03-09 15:59 | XMS_ITS | Clinical Summary ---
Author Organization [facility] Address [address] [place] [address] Care Team Providers Care Instrument Specialist Name Role Phone Malgorzata Trevino MD Primary Care Provider [phone] Allergies No known active allergies Medications fluconazole [...] on file Legal Sex Female 11:11 AM AIRBORNE OPERATIONS MANAGER Gender Identity Not on file Sexual [...] Comments Blood Pressure 119/78 09/01/2020 1:34 PM AIRBORNE OPERATIONS MANAGER Pulse 67 09/01/2020 1:34 PM AIRBORNE OPERATIONS MANAGER Temperature 37.1 C (98.8 F) 09/01/2020 1:34 PM AIRBORNE OPERATIONS MANAGER Respiratory Rate - - Oxygen Saturation 100% 09/01/2020 1:34 PM AIRBORNE OPERATIONS MANAGER Inhaled Oxygen Concentration - - Weight 88.5 kg (195 lb 1.8 oz) 09/01/2020 1:34 P M AIRBORNE OPERATIONS MANAGER Height 167.6 cm (5' 6) 09/01/2020 1:34 PM AIRBORNE OPERATIONS MANAGER Body Mass Index 31.49 09/01/2020 1:34 PM AIRBORNE OPERATIONS MANAGER Plan of Treatment Not on file Insurance [facility]IAN [facility] TNA [facility] PPO [facility] PPO Care Teams Instrument Specialist Relationship Specialty Start Date End Date Malgorzata Trevino MD PCP - General Internal Medicine 12/27/19
--- OUTSIDE RECORDS SUMMARY | 2025-03-09 15:59 | XMS_ITS | Clinical Summary ---
Author Organization [facility] Address [address] [place] [address] Care Team Providers Care Heat Reader Name Role Phone Santa Ospina MD Primary Care Provider [phone] Allergies No known active allergies Medications omeprazole [...] Type Department Care Team Description 03/03/2025 Telephone [facility] Multispecialty Care - [address] [place] [address] Santa Ospina MD Information from Last 3 [...] Sex Assigned at Female 09/12/2024 3:51 PM BREAKFAST MANAGER Legal Sex Female 2:57 PM CDT Gender Identity Female 09/12/2024 3:51 PM BREAKFAST MANAGER Sexual Orientation Straight 09/12/2024 3: 51 PM BREAKFAST MANAGER Last Filed Vital Signs Vital Sign Reading [...] Description 04/18/2025 4:20 PM CDT Office Visit [facility] Multispecialty Care - [place] [address] [place] [address] Santa Ospina MD [address] [facility] [address] [place] [address] Health Maintenance Due Date Last Done Comments [...] 06/10/2024 Hepatitis C Completed 06/09/2023 PHQ-2 (Physician Mack) Completed 09/12/2024 Meningococcal B Vaccine Aged Out [...] TO HCV RNA Routine 06/09/2023 7:52 AM BREAKFAST MANAGER OUTSIDE CYTOPATH CERV/VAG INTERPRET (PAP) 06/02/2023 from Last 3 Months or Most Recently Relevant to Health Maintenance Results * MAMMOGRAM GENERIC (06/12/2023) Anatomical Region Laterality Modality Other 06/12/2023 [employer] [facility] Scanned SCANNING Final Resu lt * HEPATITIS C ANTIBODY W/RFX TO HCV RNA (06/09/2023 7:52 AM BREAKFAST MANAGER) HEPATITIS C AB NON-REACT MARK NON-REACT MARK [employer] [facility] Comment: HCV antibody was non-reactive. There is no laboratory evidence of HCV infection. In most cases, no further action is required. However, if recent HCV exposure is suspected, a test for HCV RNA (test code 52852) is suggested. For additional information please refer to http://education.[employer]/faq/NFZ65q3 (This link is being provided for informational/ educational purposes only.) 06/09/2023 7:52 AM BREAKFAST MANAGER 06/09/2023 7:54 AM BREAKFAST MANAGER Narrative [employer] - DORENE ORDERS - 06/11/2023 10:35 AM BREAKFAST MANAGER FASTING:YES FASTING: YES Resulting Agency Comment Performing Organization Information: Site ID: [place] Name: [facility] Address: [address] [place] [id number] Director: Lucas Thapa MD Santa Ospina MD LABORATORY Final Result [employer] - DORENE AMI [employer] [facility] [id number] [place] [id number] * PAP SMEAR WITH HPV (06/02/2023) 06/02/2023 [employer] [facility] Scanned SCANNING Final Resu lt from Last 3 Months or Most Recently Relevant to Health Maintenance Insurance AETNA Care Teams Heat Reader Relationship Specialty Start Date End Date Santa Ospina MD [address] [facility] [address] [place] [address] PCP - General INTERNAL MEDICINE 12/22/22
--- NOTE | 2025-03-09 16:21 | ED.ABDPAIN ---
HPI - Abdominal Pain General Chief Complaint: Abdominal Pain Stated Complaint: dehydrated, low energy x2 weeks, dirrhea Time Seen by Provider: 03/09/25 14:15 History of Present Illness HPI narrative: Patient is a 54-year-old female who presents ER feeling dehydrated. She has had diarrhea for couple weeks and is feeling low energy. No syncope. No blood in her stool. She has had some dark urine that is burning when she urinates. No fevers or chills. Related Data Home Medications ?Medication ?Instructions ?Recorded ?Confirmed ?Last Taken ?Type polyethylene glycol 3350 17 gram 17 g PO DAILY PRN 01/27/23 06/23/24 Unknown History oral powder packet (Miralax) Allergies Allergy/AdvReac Type Severity Reaction Status Date / Time No Known Allergies Allergy Verified 03/09/25 13:06 Review of Systems Review of Systems: All systems reviewed & are unremarkable except as noted in HPI and below Constitutional: Constitutional: Reports no additional constitutional complaints Cardiovascular: Cardiovascular: Reports no additional cardiovascular complaints Respiratory: Respiratory: Reports no additional respiratory complaints Gastrointestinal: Gastrointestinal: Reports no additional gastrointestinal complaints Genitourinary: Genitourinary: Reports no additional female genitourinary complaints [facility] Past Medical History Medical History Hernia, umbilical History of History of miscarriage History of vaginal delivery Surgical History Surgical History History of hernia surgery Family History Family History Father Diabetes mellitus Mother Hypertension Depression Thyroid disorder Social History Social History Smoking status: Never smoker Alcohol intake: current Alcohol use details: RARELY Substance use: never Substance use type: does not use Lack of Transportation: No Lack of Food: Never True Current Housing: I Have Housing Difficulty Paying Gas/Electric Bills: No Currently Unemployed: No Education: Bachelor's Degree Difficulty w/ Childcare or Family Care: No Living arrangements: with family Occupation/Education: occupation Gender identity (if verbalized by the patient): Female Sexual Orientation (if Verbalized by the Patient): Straight or Heterosexual Spiritual care concerns: No Exam Narrative: GENERAL: Well-appearing, well-nourished, and in no acute distress. HEAD: Normocephalic, atraumatic. ENT: Mucous membranes moist. CHEST: Clear to auscultation. No respiratory distress. HEART: Regular rate and rhythm. Normal peripheral pulses. ABDOMEN: Soft, nontender, nondistended. EXTREMITIES: Normal range of motion. No edema. SKIN: Warm, dry, no rash. NEURO: Alert and oriented x3. PSYCH: Normal mood and affect. Course Course Emergency Course: Patient resting comfortably. Informed of results. Discharge home with antibiotic for UTI. Vital Signs Vital signs: Vital Signs Temperature 96.4 F L 03/09/25 13:18 Pulse Rate 87 03/09/25 13:18 Respiratory Rate 18 03/09/25 13:18 Blood Pressure 108/52 L 03/09/25 13:18 Pulse Oximetry 98 03/09/25 13:18 Oxygen Delivery Room Air 03/09/25 13:18 Temperature 97.9 F 03/09/25 15:31 Pulse Rate 78 03/09/25 15:31 Respiratory Rate 16 03/09/25 15:31 Blood Pressure 108/66 03/09/25 15:31 Pulse Oximetry 99 03/09/25 15:31 Oxygen Delivery Room Air 03/09/25 14:10 MDM - Abdominal Pain Lab Data 03/09/25 14:39 03/09/25 14:39 Labs: Lab Results 03/09/25 03/09/25 Range/Units 14:39 15:09 WBC 5.6 (4.5-10.0) K/mm3 RBC 4.45 (4.2-5.4) M/mm3 Hgb 14.2 (12.0-15.0) g/dL Hct 42.4 (37.0-47.0) % MCV 95.3 (80-100) fl MCH 31.9 (26-34) pg MCHC 33.5 (32-36) g/dl RDW 12.6 (11.5-14.5) % Plt Count 312 (150-375) k/mm3 MPV 10.5 H (7.4-10.4) fl Immature Gran % (Auto) 0.2 (0-0.5) % Neut % (Auto) 45.3 L (45.5-73.1) % Lymph % (Auto) 43.2 (18.3-44.2) % Mcminn % (Auto) 7.9 (2.6-8.5) % Eos % (Auto) 2.9 (0-4.4) % Baso % (Auto) 0.5 (0.2-1.2) % Lymph # (Auto) 2.42 (0.9-3.2) K/mm3 Mcminn # (Auto) 0.4 (0.1-0.6) K/mm3 Eos # (Auto) 0.2 (0-0.3) K/mm3 Baso # (Auto) 0.0 (0.0-0.1) K/mm3 Abs Immat Gran (auto) 0.01 (0.00-0.031) K/mm3 Absolute Neuts (auto) 2.5 (1.3-6.7) K/mm3 Absolute Nucleated RBC 0.000 (0.0-0.012) K/mm3 Nucleated RBC % 0.0 (0.0-0.2) % Sodium 141 (137-145) mmol/L Potassium 3.5 (3.4-5.0) mmol/L Chloride 106 (98-107) mmol/L Carbon Dioxide 24 (22-30) mmol/L Anion Gap 11 (4-12) mmol/L BUN 8 D (7-17) mg/dL Creatinine 0.88 (0.7-1.0) mg/dL Estim Creat Clear Calc 73 ml/min Estimated GFR > 60 (59 - ) Glucose 94 (65-110) mg/dL Calcium 8.8 (8.4-10.2) mg/dL Total Bilirubin 0.4 (0.2-1.3) mg/dL AST 38 H (14-36) U/L ALT 31 (6-35) U/L Alkaline Phosphatase 66 (38-126) U/L Total Protein 7.8 (6.3-8.2) g/dL Albumin 4.2 (3.5-5.1) g/dL Lipase 119 (23-300) U/L Urine Color Yellow (Yellow) Urine Appearance Cloudy H (Clear) Urine pH 5.5 (5.0-9.0) Ur Specific Ramah 1.022 (1.001-1.035) Urine Protein Negative (Negative) mg/dL Urine Glucose (UA) Negative (Negative) mg/dL Urine Ketones Negative (Negative) mg/dL Ur Blood (Man) Negative (Negative) Urine Nitrate Negative (Negative) Urine Bilirubin Negative (Negative) Urine Urobilinogen 1.0 (<2.0) mg/dL Add Ur Microanalysis Reviewed Leukocyte Esterase Rfl 3+ H (Negative) LA/UL Urine RBC 0-2 (0-2) /hpf Urine WBC 21-50 H (0-3) /hpf Ur Squamous Epith Cells Few (Few) /hpf Urine Bacteria 4+ H /hpf Urine Casts 3-5 Urine Mucus Present /lpf POC Urine HCG, Qual Negative (Negative) Discharge Plan Discharge Clinical Impression: UTI (urinary tract infection), Acute dehydration Patient Disposition: Home Condition: Stable Instructions: Antibiotic Form, Dehydration (ED), Urinary Tract Infection in Women (ED) Additional Instructions: You should return to the emergency department if you develop severe nausea and vomiting and are unable to keep liquids down, if you develop severe back/flank or stomach pain, or if your symptoms are not clearly improving at home. Patient Language: Greek Prescriptions: New cephalexin 500 mg capsule 500 mg PO Q12H Qty: 10 0RF No Action polyethylene glycol 3350 [Miralax] 17 gram powder in packet 17 g PO DAILY PRN valacyclovir [Valtrex] 500 mg tablet 500 mg PO DAILY Qty: 90 3RF Rx Instructions: Take one by mouth every 12 hours for three days for symptoms azithromycin [Zithromax Z-Jan] 250 mg tablet See Rx Instructions .ROUTE .COMPLEX Qty: 6 0RF Rx Instructions: For 250 mg dose pack: take 500 mg today (day 1), then 250 mg for 4 days (days 2-5) amoxicillin-pot clavulanate 875-125 mg tablet 1 tablet PO Q12H 7 Days Qty: 14 0RF benzonatate 200 mg capsule 200 mg PO TID PRN (Reason: cough) Qty: 15 0RF Follow-up/Referrals: Олег Loza MD [Primary Care Provider] - 1 Week
== END 2025-03-09 16:55 | disposition home or self-care (01) ==
PROVIDERS: Emergency Provider Emergency Medicine; PCP Obstetrics & Gynecology
DX: N39.0 Urinary tract infection, site not specified (principal); E86.0 Dehydration
CPT/HCPCS: 36415; 80053; 81001; 81025; 83690; 85025; 87086; 96361; 96374; 99284; J2405; J7030